=== PATIENT | female | born 1950 | race Caucasian/White ===

== ENCOUNTER 2017-05-02 12:55 | Outpatient (CLI) | payer MEDICARE ==
--- OUTSIDE RECORDS SUMMARY | 2017-05-02 15:02 | XMS | Continuity of Care Document ---
:1950 Author Organization [facility] Care Team Providers Name Role Phone Bello Lord Primary Care Physician Insurance Providers Payer Name Policy Number Subscriber Name Relationship MEDICARE [id number] CARMELO DAVEY SELF/SAME PATIENT MEDICARE/HMO [facility] [id number] CARMELO DAVEY SELF/SAME PATIENT Advance Directives Directive Response Recorded Date/Time Advance Directive? N 04/19/17 12:00pm Living Will? N 04/19/17 12:00pm Health Care Proxy? N 04/19/17 12:00pm Healthcare Power of Service Restorer Emergency? N 04/19/17 12:00pm Is the patient an Organ Donor? N 04/19/17 12:00pm Chief Complaint and Reason for Visit Reason for Visit LOWER LEFT QUAD ABDOMINAL PAIN Problems No problem information available. Medications No medication information available. Social History Problem Response Recorded Date Recreational drugs? N 04/19/17 Alcohol? N 04/19/17 Query Response Start Date Stop Date Smoking Status: Never Smoker Hospital Discharge Instructions No hospital discharge instructions. Plan of Care Discharge Date 04/19/17 Disposition OTHER ACUTE CARE FACILITY Prescriptions See Medications Section Functional Status No functional status results. Allergies, Adverse Reactions, Alerts Allergen Type Severity Reaction Status Last Updated Aspirin Allergy Unknown Active 04/19/17 Immunizations No Known History of Immunizations. Vital Signs Vital Reading Collection Date/Time Result Blood Pressure 04/19/17 3:15pm 154/86 Blood Pressure Source 04/19/17 1:51pm Auto Cuff Temperature 04/19/17 3:15pm 98.8 F Temperature Source 04/19/17 1:51pm Oral Respiratory Rate 04/19/17 1:51pm 18 Pulse Rate 04/19/17 3:15pm 89 Pulse Location 04/19/17 1:51pm Monitor Bedside Pulse Oximetry 04/19/17 3:15pm 96 Height 04/19/17 11:54am 5 ft 5 in Height 04/19/17 11:54am 165.1 cm Weight 04/19/17 11:54am 185 lb Weight 04/19/17 11:54am 83.915 kg Body Mass Index 04/19/17 11:54am 30.8 kg/m2 Results Laboratory Results Test Name Result Units Flags Reference Collection Result Comments Date/Time Date/Time Hemoglobin 12.5 g/dL 12.0-16.0 04/19/17 04/19/17 1:40pm 2:13pm Prothrombin Time 11.2 SECONDS 10.0-12.9 04/19/17 04/19/17 1:40pm 2:18pm INR 1.0 04/19/17 04/19/17 International 1:40pm 2:18pm THE INR IS TO BE USED ONLY FOR MONITORING ORAL ANTICOAGULANT Normalized Ratio THERAPY. INDICATION INR VALUE 1. Prophylaxis of venous thrombosis 2.0-3.0 (high-risk surgery) Treatment of venous thrombosis Treatment of PE Prevention of systemic embolism Tissue heart valves AMI (to prevent systemic embolism) Valvular heart disease Atrial fibrillation Bileaflet mechanical valve in aortic position 2. Mechanical prosthetic heart valves (high risk) 2.5-3.5 Thrombosis and Antiphospholipid syndrome Prevention of recurrent [place] Sixth ACCP Consensus Conference on Antithrombotic Therapy, Chest 2001; 119:Supplement 8-21. Activated 19.5 SECONDS L 25.1-36.5 04/19/17 04/19/17 Partial 1:40pm 2:18pm Thromboplast Time Lactic Acid 2.4 mmol/L H 0.5-2.0 04/19/17 04/19/17 ALERT (CRITICAL) VALUE - CALLED RESULTS AND VERBAL READ Level 1:40pm 2:26pm BACK FROM RAVIN MERCADO RN @ ER 14:24:49 2016 LAB.MMA White Blood 17.1 K/uL H 4.8-10.8 04/19/17 04/19/17 Count 11:58am 12:19pm Red Blood Count 4.48 M/uL 3.70-5.40 04/19/17 04/19/17 11:58am 12:19pm Hemoglobin 13.5 g/dL 12.0-16.0 04/19/17 04/19/17 11:58am 12:19pm Hematocrit 39.7 % 37.0-47.0 04/19/17 04/19/17 11:58am 12:19pm Mean Corpuscular 88.6 fl 80.0-100.0 04/19/17 04/19/17 Volume 11:58am 12:19pm Mean Corpuscular 30.3 pg 27.0-31.0 04/19/17 04/19/17 Hemoglobin 11:58am 12:19pm Mean Corpuscular 34.2 g/dL 32.0-36.0 04/19/17 04/19/17 Hgb Concent Diff 11:58am 12:19pm Red Cell 14.0 % 11.5-14.5 04/19/17 04/19/17 Distribution 11:58am 12:19pm Width Platelet Count 318 K/uL 130-400 04/19/17 04/19/17 11:58am 12:19pm Mean Platelet 8.4 fl 7.4-10.4 04/19/17 04/19/17 Volume 11:58am 12:19pm Granulocytes (%) 85.5 % H 50.0-75.0 04/19/17 04/19/17 11:58am 12:19pm Lymphocytes % 8.2 % L 20.0-40.0 04/19/17 04/19/17 11:58am 12:19pm Monocytes % 5.1 % 0.0-15.0 04/19/17 04/19/17 11:58am 12:19pm Eosinophils % 0.5 % 0.0-10.0 04/19/17 04/19/17 11:58am 12:19pm Basophils % 0.7 % 0.0-2.0 04/19/17 04/19/17 11:58am 12:19pm Granulocytes # 14.6 K/uL H 1.8-6.4 04/19/17 04/19/17 11:58am 12:19pm Lymphocytes # 1.4 K/uL 1.2-3.6 04/19/17 04/19/17 11:58am 12:19pm Monocytes # 0.9 K/uL 0.3-0.9 04/19/17 04/19/17 11:58am 12:19pm Eosinophils # 0.1 K/UL 0.0-0.5 04/19/17 04/19/17 11:58am 12:19pm Basophils # 0.1 K/UL 0.0-0.2 04/19/17 04/19/17 11:58am 12:19pm Manual NO 04/19/17 04/19/17 Differential 11:58am 12:19pm Sodium Level 138 mmol/L 135-144 04/19/17 04/19/17 11:58am 12:42pm Potassium Level 2.4 mmol/L CL 3.5-5.1 04/19/17 04/19/17 ALERT (CRITICAL ) VALUE - CALLED RESULTS AND VERBAL READ 11:58am 12:42pm BACK FROM MAURICIO IVEY, ALEX @ ER 12:35:32 2016 LAB.MMA Chloride Level 114 mmol/L H 101-111 04/19/17 04/19/17 11:58am 12:42pm Carbon Dioxide 20 mmol/L L 22-32 04/19/17 04/19/17 Level 11:58am 12:42pm Anion Gap 6.4 mmol/L L 10-04/19/17 04/19/17 11:58am 12:42pm Glucose Level 172 mg/dL H 70-109 04/19/17 04/19/17 Random glucose > 200 mg/dL in a patient with typical 11:58am 12:42pm symptoms of diabetes (polydipsia, polyuria and unexplained weight loss) satisfies ADA criteria for diabetes mellitus if confirmed by repeat testing on another day. Confirmation is unnecessary when acute metabolic decompensation with hyperglycemia is manifested. Reference: Report of the Expert Committee on the Diagnosis and Classification of Diabetes Mellitus. Diabetes Care, 20:1183, 1997. Blood Urea 10 mg/dL 8-04/19/17 04/19/17 Nitrogen 11:58am 12:42pm Creatinine 0.50 mg/dL 0.44-1.00 04/19/17 04/19/17 11:58am 12:42pm EGFR Note 110.5 63.8-143.2 04/19/17 04/19/17 eGFR (Estimated Glomerular Filtration Rate) 11:58am 12:42pm eGFR calculation value obtained using the [facility] Quadratic (MCQ) equation. The reportable reference range is recommended to be greater than 60 ml/min/1.73m. This is an estimation of the patient's GFR and clinical correlation is recommended. This eGFR calculation does not account for race. This result may differ from other equations available. Calcium Level 6.2 mg/dL L 8.9-10.3 04/19/17 04/19/17 11:58am 12:42pm Albumin 2.7 g/dL L 3.5-5.0 04/19/17 04/19/17 11:58am 12:42pm Total Bilirubin 0.6 mg/dL 0.3-1.2 04/19/17 04/19/17 11:58am 12:42pm Alkaline 51 IU/L 32-91 04/19/17 04/19/17 Phosphatase 11:58am 12:42pm Total Protein 4.2 g/dL L 6.5-8.1 04/19/17 04/19/17 11:58am 12:42pm Alanine 12 IU/L 7-55 04/19/17 04/19/17 Aminotransferase 11:58am 12:42pm (ALT/SGPT) Aspartate Amino 10 IU/L L 15-41 04/19/17 04/19/17 Transf 11:58am 12:42pm (AST/SGOT) Globulin 1.5 g/dL L 2.3-3.5 04/19/17 04/19/17 11:58am 12:42pm Albumin/Globulin 1.8 1.2-2.2 04/19/17 04/19/17 Ratio 11:58am 12:42pm Amylase Level 40 U/L 36-128 04/19/17 04/19/17 11:58am 12:42pm Lipase 17 U/L L 22-51 04/19/17 04/19/17 11:58am 12:42pm Procedures No Known History of Procedures. Encounters Encounter Location Arrival/Admit Date Discharge/Depart Date Attending Provider Departed [facility] 04/19/17 11:52am 04/19/17 3:15pm SHARONDA ARRINGTON [facility]
--- NOTE | 2017-05-02 15:22 | RAD ---
TWO VIEW CHEST: History: Dyspnea. Comparison: 10-25-16 FINDINGS: Mild cardiomegaly with post sternotomy changes. Transvenous AICD leads again noted. The lung khan remain clear. Vascularity is normal. IMPRESSION: Mild cardiomegaly. No acute lung process. No interval change noted. POS: [facility]
== END 2017-05-02 12:56 | disposition home or self-care (01) ==
LOC: RAD 12:55
PROVIDERS: ATTEND Internal Medicine Critical Care Medicine
DX: R06.00 Dyspnea, unspecified (principal); I51.7 Cardiomegaly
CPT/HCPCS: 71020

== ENCOUNTER 2018-05-31 13:00 | Outpatient (CLI) | payer MEDICARE | END 2018-05-31 13:01 | disposition home or self-care (01) | LOC: BICMAMMO 13:00 | PROVIDERS: ATTEND Family Medicine | DX: Z12.31 Encounter for screening mammogram for malignant neoplasm of breast (principal); R92.1 Mammographic calcification found on diagnostic imaging of breast; Z80.3 Family history of malignant neoplasm of breast | CPT/HCPCS: 77063; 77067 ==

== ENCOUNTER 2018-08-16 12:52 | Emergency (ER) | payer MEDICARE ==
--- NOTE | 2018-08-16 13:17 | RAD ---
3 VIEWS LEFT FOOT: Date: 08/16/18 COMPARISON: None. HISTORY: Left foot pain after dropping a plate on it yesterday. FINDINGS: Three views of the left foot show no evidence of acute fracture or dislocation. There is moderate fir st metatarsal head hyperplasia and hallux valgus deformity of the great toe. IMPRESSION: 1. No evidence of acute osseous abnormality. 2. Great toe degenerative change as above. POS: [facility]
[2018-08-16] MEDS ORDERED: traMADol HCl 50 MG TAB ONE (13:59)
[2018-08-16] MEDS ORDERED: Adacel (T-DAP) 0.5 ML SYRINGE ONE (14:00)
== END 2018-08-16 14:29 | disposition home or self-care (01) ==
LOC: ERS 12:52
DX: S90.512A Abrasion, left ankle, initial encounter (principal); E11.9 Type 2 diabetes mellitus without complications; K21.9 Gastro-esophageal reflux disease without esophagitis; Z79.84 Long term (current) use of oral hypoglycemic drugs; E78.5 Hyperlipidemia, unspecified; I10 Essential (primary) hypertension; W20.8XXA Other cause of strike by thrown, projected or falling object, initial encounter
CPT/HCPCS: 90471; 90715

== ENCOUNTER 2018-10-10 11:59 | Emergency (ER) | payer MEDICARE ==
[2018-10-10 13:04] LABS: #Eosinphils 0.2 thou/uL (0.0-0.7); #Lymphocytes 1.3 thou/uL (1.20-3.40); #Monocytes 0.7 thou/uL (0.11-0.59); #Neutrophils 10.5 thou/uL (1.40-6.50); %Basophils 0.1 % (0.0-1.0); %Eosinophils 1.7 % (0.0-10.0); %Lymphocytes 10.5 % (21.0-51.0); %Monocytes 5.2 % (0.0-10.0); %Neutrophils 82.4 % (42.0-75.0); Hemoglobin 13.5 g/dL (12.0-16.0); Mean Corpuscular HGB CONC 33.4 g/dL (32.0-36.0); Mean Corpuscular Hemoglobin 30.7 pg (27.0-31.0); Mean Corpuscular Volume 91.9 fL (78.0-98.0); Mean Platelet Volume 7.3 fL (7.4-10.4); Platelet Count 329 thou/uL (130-400); RBC Distribution Width 12.4 % (11.5-14.5); Red Blood Cell (RBC) Count 4.38 mill/uL (4.20-5.40); White Blood Cell (WBC) Count 12.7 thou/uL (4.8-10.8)
[2018-10-10 13:32] LABS: Bilirubin Negative (Negative); Blood, Urine Trace (Negative); Clarity CLEAR (Clear); Glucose, Urine (Dipstick) Negative (Negative); Leukocyte Negative (Negative); Nitrite Negative (Negative); Protein, Urine (Dipstick) Negative (Neg-Trace); Specific Gravity, Urine 1.019 (1.002-1.036); Urobilinogen 0.2 mg/dL (0.2-1.0); pH, Urine 5.5 (5.0-9.0)
[2018-10-10 13:33] LABS: ALT (SGPT) 13 U/L (8-55); AST (SGOT) 11 U/L (5-34); Albumin 4.3 g/dL (3.4-4.8); Alkaline Phosphatase 77 U/L (40-150); Anion Gap 13 mmol/L (10-20); BUN (Urea Nitrogen) 12 mg/dL (9.8-20.1); Bilirubin, Total 0.6 mg/dL (0.2-1.2); Calc. Creatinine Clearance 0 mL/min (70-130); Calcium 9.8 mg/dL (7.8-10.44); Carbon Dioxide 29 mmol/L (23-31); Chloride 102 mmol/L (98-107); Estimated GFR-MDRD 68; Globulin 2.1 g/dL (2.4-3.5); Glucose 121 mg/dL (80-115); Potassium 4.6 mmol/L (3.5-5.1); Protein, Total 6.4 g/dL (6.0-8.3); Sodium 139 mmol/L (136-145)
[2018-10-10 13:34] LABS: Bacteria/HPF None Seen HPF (None Seen); Hyaline Casts/LPF 0-3 HYALINE CAST LPF (0-3 Hyaline); Pathc Cast-AUWi Flag 0.54 (0-2.49); Squamous Epithelial 0-3 HPF (0-3); WBC/HPF 0-3 HPF (0-3)
--- NOTE | 2018-10-10 15:40 | CT ---
CT Stone Protocol History: [Left flank pain.] Comparison: CT abdomen and pelvis January 2018 Findings: Lung bases are clear. No pericardial effusion. Dense mitral annular calcifications. Hepatic cyst is similar. Asymmetric left perinephric stranding is similar. The stranding has mildly d ecreased attenuation measuring 25-30 Hounsfield units suggesting sequelae of chronic left perinephric hematoma.. There is moderate asymmetric increase in the left perinephric fat. There is an 18 mm mass inferior pole left kidney which may reflect a complex cyst that has not grown from 2018 although dedicated renal protocol CT or MRI and 6 months is recommended. No dilated loops of large or small bowel. Moderate degenerative disease pubic symphysis and lower lum bar spine. Impression: 1. 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 There is lik melisa injury to the left perirenal fascia with chronic transudation of fluid across the capsule with subsequent increased left perinephric fat. No new hematoma. 2. No nephroureterolithiasis or hydronephrosis. 3. 18 mm mass inferior pole left kidney for which a nonemergent follow-up CT or MRI renal protocol in 6 months is recommended. This has not significantly grown from 2018.
[2018-10-10] MEDS ORDERED: Dexamethasone 4 mg/ml Vial ONE (15:52)
== END 2018-10-10 16:05 | disposition home or self-care (01) ==
LOC: ERS 11:59
DX: R10.9 Unspecified abdominal pain (principal); J45.909 Unspecified asthma, uncomplicated; E11.9 Type 2 diabetes mellitus without complications; E78.5 Hyperlipidemia, unspecified; I10 Essential (primary) hypertension
CPT/HCPCS: 36415; 74176; 80053; 81003; 81015; 85025; J1100

== ENCOUNTER 2018-10-12 10:12 | Emergency (ER) | payer MEDICARE ==
[2018-10-12] MEDS ORDERED: Lidocaine 1% w/Epinephrine 1:100K 20 ML VIAL ONE (11:07)
[2018-10-12] MEDS ORDERED: Bacitracin Zinc 1 Packet ONE (11:43)
== END 2018-10-12 11:49 | disposition home or self-care (01) ==
LOC: ERS 10:12
DX: S81.812A Laceration without foreign body, left lower leg, initial encounter (principal); J45.909 Unspecified asthma, uncomplicated; E11.9 Type 2 diabetes mellitus without complications; K21.9 Gastro-esophageal reflux disease without esophagitis; E78.5 Hyperlipidemia, unspecified; I10 Essential (primary) hypertension; Z79.4 Long term (current) use of insulin; W26.8XXA Contact with other sharp object(s), not elsewhere classified, initial encounter
CPT/HCPCS: 12002; J2001

== ENCOUNTER 2018-10-28 10:24 | Emergency (ER) | payer MEDICARE | END 2018-10-28 10:57 | disposition home or self-care (01) | LOC: SCSER 10:24 | DX: S81.812D Laceration without foreign body, left lower leg, subsequent encounter (principal); E11.9 Type 2 diabetes mellitus without complications; K21.9 Gastro-esophageal reflux disease without esophagitis; E78.5 Hyperlipidemia, unspecified; I10 Essential (primary) hypertension; Z79.84 Long term (current) use of oral hypoglycemic drugs ==

== ENCOUNTER 2019-01-04 17:42 | Observation (INO) | payer MEDICARE ==
[2019-01-04 19:47] LABS: #Eosinphils 0.4 thou/uL (0.0-0.7); #Lymphocytes 2.1 thou/uL (1.20-3.40); #Monocytes 1.1 thou/uL (0.11-0.59); #Neutrophils 8.3 thou/uL (1.40-6.50); %Basophils 0.4 % (0.0-1.0); %Eosinophils 3.7 % (0.0-10.0); %Lymphocytes 17.7 % (21.0-51.0); %Monocytes 9.1 % (0.0-10.0); %Neutrophils 69.1 % (42.0-75.0); Hemoglobin 13.7 g/dL (12.0-16.0); Mean Corpuscular HGB CONC 34.4 g/dL (32.0-36.0); Mean Corpuscular Hemoglobin 31.4 pg (27.0-31.0); Mean Corpuscular Volume 91.3 fL (78.0-98.0); Mean Platelet Volume 7.1 fL (7.4-10.4); Platelet Count 422 thou/uL (130-400); RBC Distribution Width 11.8 % (11.5-14.5); Red Blood Cell (RBC) Count 4.36 mill/uL (4.20-5.40); White Blood Cell (WBC) Count 12.1 thou/uL (4.8-10.8)
[2019-01-04 20:07] LABS: ALT (SGPT) 11 U/L (8-55); AST (SGOT) 13 U/L (5-34); Albumin 4.4 g/dL (3.4-4.8); Alkaline Phosphatase 82 U/L (40-150); Anion Gap 16 mmol/L (10-20); BUN (Urea Nitrogen) 9 mg/dL (9.8-20.1); Bilirubin, Total 0.5 mg/dL (0.2-1.2); CK (CPK) 51 U/L (29-168); Calc. Creatinine Clearance 0 mL/min (70-130); Calcium 9.5 mg/dL (7.8-10.44); Carbon Dioxide 27 mmol/L (23-31); Chloride 95 mmol/L (98-107); Estimated GFR-MDRD 72; Globulin 1.9 g/dL (2.4-3.5); Glucose 94 mg/dL (80-115); Lipase 23 U/L (8-78); Potassium 3.8 mmol/L (3.5-5.1); Protein, Total 6.3 g/dL (6.0-8.3); Sodium 134 mmol/L (136-145)
--- NOTE | 2019-01-04 20:15 | RAD ---
Exam: Chest one view HISTORY:Chest pain Comparison: 06/26/2013, 05/02/2017 FINDINGS: Cardiac silhouette:Cardiomegaly. There are sternotomy wires. Stable left-sided defibrillator. Elongat ion of the aorta. Atherosclerosis of the aortic knob Pulmonary vessels: Normal Costophrenic angles: Clear LUNGS: No masses or consolidation. Chronic changes are suspected. Pneumothorax: None Osseous abnormalities: Old right rib fracture. IMPRESSION: No acute cardiopulmonary process.
[2019-01-04] MEDS ORDERED: diphenhydrAMINE 25 MG CAP ONE (21:53)
[2019-01-04] MEDS ORDERED: Lorazepam 2 MG/ML VIAL ONE (23:05)
[2019-01-05 00:04] LABS: Troponin I 0.017 ng/mL (< 0.028)
[2019-01-05] MEDS ORDERED: diphenhydrAMINE 25 MG CAP PO PRN (01:24)
[2019-01-05] MEDS ORDERED: Ondansetron PF 4 MG/2 ML Vial IVP PRN (01:25)
[2019-01-05] MEDS ORDERED: Ondansetron ODT 4 MG TAB SL PRN (01:25)
[2019-01-05] MEDS ORDERED: Lorazepam 2 MG/ML VIAL SLOW IVP PRN (01:25)
[2019-01-05] MEDS ORDERED: Acetaminophen 325 MG TAB PO PRN (01:25)
[2019-01-05] MEDS ORDERED: HYDROcodone/Acetaminophen 7.5/325 mg Tablet PO SCH (02:00)
[2019-01-05] MEDS: HYDROcodone/Acetaminophen 7.5/325 mg Tablet PO PRN ×3 (02:15→21:24)
[2019-01-05 02:46] LABS: Troponin I Less than 0.010 ng/mL (< 0.028)
[2019-01-05 03:07] VITALS: BMI 28.4
[2019-01-05] MEDS ORDERED: Furosemide 20 MG TAB PO PRN (07:36)
[2019-01-05] MEDS ORDERED: Docusate 100 MG CAP PO PRN (07:36)
[2019-01-05] MEDS ORDERED: diphenhydrAMINE 25 MG in Sodium Chloride 0.9% 50 ML IVPB SCH (08:30)
--- NOTE | 2019-01-05 08:30 | CT ---
PRELIMINARY REPORT/[facility]/EMERGENCY AFTER HOURS PROCEDURE: EXAM: CT Angiography Chest With Contrast EXAM DATE/TIME: 01/05/2019 12:38 AM CLINICAL HISTORY: 68 years old, female; Dyspnea; Patient HX: F68 w/ pmh of chf, dm, gerd, hyperlipidemia, HTN, cad, car diomyopathy, treated w/ pacemaker/aicd, comes into the ED w/ C/O cp, SOB, pruritis, rash. Reports all began earlier today. Has taken a benadryl at home which helped some with the itching. Cp off/on, now described as pressure. TECHNIQUE: Imaging protocol: Axial computed tomographic angiography images of the chest with intravenous contrast using CT angiography protocol. Coronal and sagittal reformatted images were created and revi ewed. 3D rendering: MIP reconstructed images were created and reviewed. COMPARISON: No relevant prior studies available. FINDINGS: Tubes, catheters and devices: A pacemaker device is present, and its leads are in appropriate position. Pulmonary arteries: There is no evidence of peripheral filling defects within the pulmonary arterial circulation to suggest pulmonary embolism. Aorta: The aorta demonstrates mild atherosclerotic calcification. There is no evidence of aortic dissection, leak, rupture, or other complications. Lungs: There is atelectasis or scarring within the right middle lobe. Pleural space: Unremarkable. No pneumothorax. No pleural effusion. Heart: Unremarkable. No cardiomegaly. No pericardial effusion. Lymph nodes: Unremarkable. No enlarged lymph nodes. Bones/joints: There are sternal wires consistent with previous sternotomy incision. There is an age i ndeterminate compression fracture at T8. Soft tissues: Unremarkable. IMPRESSION: 1. There is no CT evidence of acute pulmonary embolism. 2. There is an age-indeterminate compression fracture at T8. 3. Chronic changes without evidence for acute, intracranial pathology. ASSESSMENT: ASPECTS ([place] Stroke Program Early CT Score) is 10. Thank you for allowing us to participate in the care of your patient. Dictated and Authenticated by: Ho Caban MD 01/05/2019 3:39 AM Central Time ([place] & [place]) FINAL REPORT: CTA ANGIO CHEST WITH AND WITHOUT CONTRAST: HISTORY: Congestive heart failure, shortness of breath. COMPARISON: Radiograph prior day. FINDINGS: CT angiogram chest performed after the intravenous ministration of contrast. 3-D rendering provided. IMPRESSION: Findings and impression are concordant with the preliminary report. Transcribed Date/Time: 01/05/2019 9:12 AM
[2019-01-05] MEDS ORDERED: diphenhydrAMINE 50 MG/ML VIAL IVP SCH ×2 (08:33→11:15)
[2019-01-05] MEDS ORDERED: Bacteriostatic Water 30 ML VIAL FS PRN (08:36)
[2019-01-05] MEDS: Spironolactone 25 MG TAB PO SCH ×2 (08:40→20:33)
[2019-01-05] MEDS: predniSONE 20 MG TAB PO SCH (08:40)
[2019-01-05] MEDS: Clopidogrel Bisulfate 75 MG TAB PO SCH (08:40)
[2019-01-05] MEDS: Atorvastatin Calcium 40 MG TAB PO SCH (08:40)
[2019-01-05] MEDS ORDERED: methylPREDNISolone Sod Succ 40 MG VIAL IVP SCH ×2 (08:45)
[2019-01-05] MEDS: Famotidine/PF 20 mg/2ml Vial SLOW IVP SCH ×2 (08:49→20:31)
[2019-01-05] MEDS ORDERED: HumaLOG 300 UNITS/3 ML VIAL SC PRN (09:03)
[2019-01-05] MEDS ORDERED: Dextrose 5% in Water 1,000 ML IV PRN (09:03)
[2019-01-05] MEDS ORDERED: Dextrose 50% Abboject 50 ML SYRINGE SLOW IVP PRN (09:03)
--- NOTE | 2019-01-05 09:49 | HP ---
CHIEF COMPLAINT: Chest pressure, fatigue, rash. HISTORY OF PRESENT ILLNESS: Ms. Humphreys is a very pleasant 68-year-old female with past medical history for coronary artery disease status post two vessel CABG, obstructive hypertrophic cardiomyopathy status post myomectomy and defibrillator placement, paroxysmal atrial fibrillation, along with steroid-dependent asthma, who presented to the hospital with complaints of chest pressure. The patient states that for the past several days, she has been experiencing a rash, which has seemed to break out over her entire body and is very itchy. This has been improved with oral Benadryl. Last night, the patient experienced an episode of chest pressure that woke her up. This seemed to be associated with nausea soon after the chest pressure resolved. Later in the day, she did have another episode of chest discomfort, which she described as a pressure radiated toward the back. The patient states that for the last several weeks, she has also felt increasing fatigue and exercise intolerance. Given her symptoms, the patient presented to the ED for further workup and treatment. Workup has included an EKG, which shows a ventricularly-paced rhythm. Her serial troponin has been negative x3. Her urticaria and rash are improving with another dose of oral Benadryl. She has been admitted to the Hospitalist Service for further evaluation. REVIEW OF SYSTEMS: A 12-point review of systems is performed. The patient states that she has had some bilateral lower extremity edema, which has been worse in the past few days. She takes her spironolactone and Lasix as needed for this. She denies any vomiting or diarrhea, but does report nausea, which seems to be related to her chest discomfort as outlined above. She denies any fevers or chills. Otherwise, her review of systems is negative. PAST MEDICAL HISTORY: 1. Steroid-dependent asthma. 2. Hypertension. 3. Type 2 diabetes mellitus. 4. Hyperlipidemia. 5. Complicated cardiac history to include hypertrophic cardiomyopathy, which obstructed the outflow tract, status post myomectomy and defibrillator placement, CAD status post two-vessel CABG, and paroxysmal atrial fibrillation. 6. History of renal hemorrhage in 2017. 7. Gastroesophageal reflux disease. PAST SURGICAL HISTORY: Two-vessel coronary artery bypass grafting as mentioned, cholecystectomy, which was open in 1972, tubal ligation, defibrillator implant. SOCIAL HISTORY: No alcohol, illicit drug use, or smoking. FAMILY HISTORY: Noncontributory. ALLERGIES: ASPIRIN, WHICH CAUSES ANAPHYLAXIS; NSAIDS, ANAPHYLAXIS. HOME MEDICATIONS: 1. Atorvastatin 40 mg daily. 2. Plavix 75 mg p.o. daily. 3. Diltiazem 120 mg p.o. daily. 4. Lasix 40 mg p.o. daily p.r.n. 5. Hydrocodone/acetaminophen 7.5/325 one tab p.o. q.4 hours p.r.n. 6. DuoNeb inhalers as needed. 7. Xopenex 1 puff inhaled q.4 hours p.r.n. 8. Metformin 1000 mg one tablet p.o. daily. 9. Metoprolol succinate 12.5 mg one p.o. daily. 10. Potassium chloride 10 mEq one p.o. daily. 11. Prednisone 10 mg p.o. daily. 12. Spironolactone 25 mg p.o. b.i.d. 13. Rescue inhaler one puff p.r.n. PHYSICAL EXAMINATION: VITAL SIGNS: Blood pressure 145/71, pulse is 92, O2 saturation is 98% on room air, respirations are 18. GENERAL: The patient is a moderately obese, female, resting in bed, in no acute distress. HEENT: Head is atraumatic and normocephalic. Mucous membranes are moist. NECK: Supple. Trachea is midline. No carotid bruits. CV: S1, S2, irregular rhythm. LUNGS: Regular respiratory rate and pattern, no wheezes or rhonchi, no crackles. ABDOMEN: Positive bowel sounds. Soft, nontender. EXTREMITIES: Trace edema bilaterally, the patient does have a small nonhealing ulcer on her left lateral ankle. SKIN: Warm and dry, she does have evidence of mild urticaria on her back and arms. NEUROLOGIC: Cranial nerves 2 through 12 were grossly intact. The patient is nonfocal. LABORATORY DATA: White blood cell count 12.1, hemoglobin 13.7, hematocrit 39.8, platelets are 422. Sodium 134, potassium 3.8, chloride 27, anion gap 16, creatinine 0.79. AST, ALT, alkaline phosphatase all within normal limits. Creatine kinase is 51. Troponin is negative x3. BNP is 123. Lipase is 23. TSH 1.0985. ASSESSMENT: 1. Chest pressure and worsening fatigue concerning for anginal equivalent in a patient with known coronary artery disease. 2. Pruritus/urticaria, unknown trigger, improving. 3. History of hypertrophic cardiomyopathy with outflow tract obstruction, status post myomectomy and defibrillator placement. 4. Coronary artery disease, status post two-vessel CABG in 2006. 5. Paroxysmal atrial fibrillation, CHADS-VASc equals 6. 6. Steroid-dependent asthma. 7. Anaphylaxis, allergic reaction to aspirin. 8. Type 2 diabetes mellitus. PLAN: Given the patient's very complicated past cardiac history, we will consult Cardiology and defer to them for further risks stratification and if they recommend in-house stress test, we will continue her home medications. We will obtain echocardiogram. Continue Plavix and beta santos. I will consult Wound Care for further management of her nonhealing ulcer. The patient is high risk given her multiple comorbidities. We will also obtain interrogation of her defibrillator to assess for AF burden. It does not appear that she is on anticoagulation at this time. Further recommendations based on hospital course. Job ID: [id number]
[2019-01-05] MEDS ORDERED: diphenhydrAMINE 50 MG/ML VIAL ONE (11:07)
[2019-01-05] MEDS ORDERED: ISOVUE-370 76%-LOCM 1 ML ONE (12:36)
[2019-01-05] MEDS: HumaLOG 300 UNITS/3 ML VIAL SC PRN (18:09)
[2019-01-05] MEDS: diphenhydrAMINE 50 MG/ML VIAL IVP PRN (20:37)
[2019-01-06] MEDS: HYDROcodone/Acetaminophen 7.5/325 mg Tablet PO PRN ×3 (02:19→18:34)
[2019-01-06] MEDS: diphenhydrAMINE 50 MG/ML VIAL IVP PRN ×2 (02:20→21:11)
[2019-01-06 09:02] LABS: #Eosinphils 0.1 thou/uL (0.0-0.7); #Lymphocytes 1.7 thou/uL (1.20-3.40); #Monocytes 1.4 thou/uL (0.11-0.59); #Neutrophils 9.9 thou/uL (1.40-6.50); %Basophils 0.1 % (0.0-1.0); %Eosinophils 0.8 % (0.0-10.0); %Monocytes 10.6 % (0.0-10.0); %Neutrophils 75.5 % (42.0-75.0); Hemoglobin 12.4 g/dL (12.0-16.0); Mean Corpuscular HGB CONC 34.6 g/dL (32.0-36.0); Mean Corpuscular Hemoglobin 31.5 pg (27.0-31.0); Mean Corpuscular Volume 91.1 fL (78.0-98.0); Platelet Count 364 thou/uL (130-400); RBC Distribution Width 11.8 % (11.5-14.5); Red Blood Cell (RBC) Count 3.92 mill/uL (4.20-5.40); White Blood Cell (WBC) Count 13.2 thou/uL (4.8-10.8)
[2019-01-06] MEDS ORDERED: predniSONE 20 MG TAB PO SCH (09:15)
[2019-01-06 09:21] LABS: Anion Gap 15 mmol/L (10-20); BUN (Urea Nitrogen) 11 mg/dL (9.8-20.1); Calc. Creatinine Clearance 78 mL/min (70-130); Calcium 9.3 mg/dL (7.8-10.44); Carbon Dioxide 26 mmol/L (23-31); Chloride 99 mmol/L (98-107); Estimated GFR-MDRD 70; Glucose 103 mg/dL (80-115); Magnesium 1.5 mg/dL (1.6-2.6); Potassium 3.8 mmol/L (3.5-5.1); Sodium 136 mmol/L (136-145)
[2019-01-06 09:24] LABS: Bilirubin Negative (Negative); Blood, Urine 1+ (Negative); Clarity Clear (Clear); Glucose, Urine (Dipstick) Normal (Negative); Leukocyte 75 Leu/uL (Negative); Nitrite Negative (Negative); Protein, Urine (Dipstick) Negative (Neg-Trace); RBC/HPF 0-3 HPF (0-3); Squamous Epithelial 0-3 HPF (0-3); Urobilinogen Normal mg/dL (Less than 2)
[2019-01-06 09:27] LABS: Urine Culture Reflex Yes Yes
[2019-01-06 09:28] LABS: Bacteria/HPF None Seen HPF (None Seen)
--- NOTE | 2019-01-06 09:45 | PRG ---
DATE OF SERVICE: 01/06/2019 SUBJECTIVE: Ms. Humphreys is doing okay this morning. She did have an episode of chest pressure leading to this hospitalization. She has also had severe rash suggestive of allergy to one of her medicines. OBJECTIVE: VITAL SIGNS: Her blood pressure is 111/58, pulse is 76 and regular. LUNGS: Clear. No wheezing currently. CARDIAC: Normal S1, normal S2. ABDOMEN: Soft, nontender. EXTREMITIES: There is no significant edema currently. ASSESSMENT: 1. History of hypertrophic obstructive cardiomyopathy with previous surgery for the hypertrophic cardiomyopathy. 2. Previous bypass surgery. 3. Aspirin allergy. 4. Rash, probably one of her medications. 5. Defibrillator indicates that there is some, looks like ventricular tachycardia and some supraventricular tachycardia. 6. Chest pressure, uncertain etiology. PLAN: 1. Stress test to be done. 2. Echo to be reviewed. 3. Consideration for trying to simplify her medicines and seeing if there is any medicine, so we can do without. Certainly, Cardizem could cause rash, and also clopidogrel can. The first step will be to do stress testing and echocardiography to further interrogate the defibrillator and re-evaluate difficult complicated situation. Job ID: [id number]
--- NOTE | 2019-01-06 10:20 | CON ---
DATE OF CONSULTATION: HISTORY OF PRESENT ILLNESS: The patient is a pleasant 68-year-old woman with a history of myomectomy, who presents with midsternal chest discomfort. The patient has a history of hypertrophic cardiomyopathy. The patient previously has undergone a myomectomy. She also had coronary artery bypass graft surgery x2. The patient has had placement of automatic implantable cardiac defibrillator. The patient has a history of paroxysmal atrial fibrillation. The patient was in her usual state of health when she developed hive-like reaction. She broke out in a severe rash. It is unclear rash. The patient subsequently developed midsternal chest discomfort that lasted approximately an hour. The patient then came to the emergency room for further evaluation. In the emergency room, she had a second episode that lasted approximately 20 minutes. This was a midsternal discomfort. It was associated with dyspnea. She denied having any diaphoresis. The patient states she has had these episodes at times whenever she feels that her weight is elevated whenever she has evident increasing heart failure. PAST MEDICAL HISTORY: Significant for, 1. Hypertrophic cardiomyopathy. 2. Atrial fibrillation. 3. Hypertension. 4. Diabetes mellitus. 5. Asthma. PAST SURGICAL HISTORY: Coronary artery bypass surgery, cholecystectomy, tubal ligation. SOCIAL HISTORY: Nonsmoker. ALLERGIES: SHE IS ALLERGIC TO ASPIRIN AND NSAIDS. MEDICATIONS: See nursing list. REVIEW OF SYSTEMS: Ten-point systems notable for a foot wound and decreased mobility. PHYSICAL EXAMINATION: GENERAL: Obese woman, in no acute distress. VITAL SIGNS: Blood pressure 150/89. NECK: Showed no jugular venous distention. LUNGS: Clear to auscultation. HEART: Regular rate and rhythm. Normal S1 and S2. ABDOMEN: Distended. EXTREMITIES: Showed trace edema with a wound over the left lower extremity. VASCULAR: Radial pulses 2+. LABORATORY DATA: Sodium 134, potassium 3.8, chloride 95, bicarbonate 27, BUN 9, creatinine 0.79. Her glucose is 94. Troponin is less than 0.01. White blood cell count 12.1, hemoglobin 13.7, hematocrit 39.3, and platelets are 422. IMAGING STUDIES: Her EKG revealed electronic ventricular pacemaker. Telemetry monitoring revealed a wide-complex tachycardia suggestive of SVT. Her chest CT revealed her to have no evidence of a pulmonary embolus. IMPRESSION: 1. Chest pain. 2. Supraventricular tachycardia. 3. History of myomectomy. 4. History of atrial fibrillation. 5. History of automatic implantable cardioverter-defibrillator placement. 6. History of renal injury. 7. Asthma. PLAN: This patient presents with SVT. She also has chest pain which has some features suggestive of angina. We will have the patient's pacemaker interrogated. With her aspirin allergy, she would not be an appropriate patient for cardiac intervention. Would recommend that she undergo probable stress testing during this hospitalization. Further recommendation will follow. Job ID: [id number]
[2019-01-06] MEDS ORDERED: Regadenoson 0.4 MG/5 ML SYRINGE ONE (11:56)
[2019-01-06] MEDS: Spironolactone 25 MG TAB PO SCH ×2 (12:49→21:14)
[2019-01-06] MEDS: Clopidogrel Bisulfate 75 MG TAB PO SCH (12:49)
[2019-01-06] MEDS: Atorvastatin Calcium 40 MG TAB PO SCH (12:50)
[2019-01-06] MEDS: predniSONE 20 MG TAB PO SCH (12:50)
[2019-01-06] MEDS: Famotidine/PF 20 mg/2ml Vial SLOW IVP SCH ×2 (12:51→21:13)
[2019-01-06] MEDS: HumaLOG 300 UNITS/3 ML VIAL SC PRN ×2 (12:56→18:28)
--- NOTE | 2019-01-06 12:56 | NM ---
EXAM: Nuclear medicine cardiac SPECT with EF and wall motion: HISTORY: Chest pain, status post CABG, history of coronary artery disease, status post ICD. Protocol: [facility]. The patient is injected with32.2 millicuries of technetium 99m sestamibi intravenously for stress marcia ges. The patient is injected with10.2 millicuries of technetium 99 sestamibi intravenously for resting marcia ges. Multiple SPECT images are performed in the short axis, vertical long axis, and horizontal long axis. FINDINGS: No scan evidence for infarct or ischemia. TID:1.07 LHR:0.39 EDV:86 mL EF:70% Wall motion:Within normal limits. IMPRESSION: Unremarkable stress rest cardiac SPECT with EF and wall motion.
--- NOTE | 2019-01-06 14:57 | PDOC.PN ---
- Subjective Encounter Start Date: 01/06/19 Encounter Start Time: 14:55 Subjective: Patient states she feels well and is without any complaints. Reports long- -: standing issues with episodes of tachycardia. Usually exacerbated by -: exertion and sometimes when over-excited while talking. Per she drinks caffeine excessively with minimal water intake. She denies any chest pain or sob. No dizziness or headaches. Reports mild nausea yesterday with an episode of dry heaving which has resolved. She moved her bowels this morning without difficulty. No bright red blood in her stools or melena. No urinary symptoms. - Objective Vital Signs & Weight: Vital Signs (12 hours) Temp Pulse Resp BP BP BP Pulse Ox 01/06/19 12:46 95 113/67 98 01/06/19 07:32 98.0 F 76 16 111/58 L 96 01/06/19 05:40 81 18 121/66 96 Weight Weight 165 lb 9.6 oz I&O: 01/05/19 01/06/19 01/07/19 06:59 06:59 06:59 Intake Total 900 Output Total 600 Balance 300 Result Diagrams: 01/06/19 08:49 01/06/19 08:49 Additional Labs: Accuchecks 01/06/19 01/06/19 01/05/19 12:48 06:33 20:38 POC Glucose 222 H 119 H 350 H 01/05/19 17:57 POC Glucose 416 H Phys Exam - Physical Examination Constitutional: NAD HEENT: PERRLA, moist MMs, sclera anicteric Neck: supple, full ROM Respiratory: clear to auscultation bilateral Cardiovascular: RRR Gastrointestinal: soft, non-tender, no distention, positive bowel sounds Musculoskeletal: no edema, pulses present Neurological: normal sensation, moves all 4 limbs Lymphatic: no nodes Psychiatric: normal affect, A&O x 3 Skin: no rash Dx/Plan (1) Chest pain Code(s): R07.9 - CHEST PAIN, UNSPECIFIED Status: Resolved Plan: Status post stress test: EF 70%, unremarkable. Status post Echo: EF 65-70%, mild TR, mild MR. Mildly elevated pulmonary artery pressure. Small pericardial effusion without tamponade. Left atrium moderately dilated. Diastolic dysfunction. Normal sized LV. (2) CAD (coronary artery disease) Code(s): I25.10 - ATHSCL HEART DISEASE OF [place] CORONARY ARTERY W/O ANG PCTRS Status: Acute (3) AICD (automatic cardioverter/defibrillator) present Code(s): Z95.810 - PRESENCE OF AUTOMATIC (IMPLANTABLE) CARDIAC DEFIBRILLATOR Status: Acute Plan: For further interrogation given episodes of WCT x 17 beats this am. (4) Diabetes Code(s): E11.9 - TYPE 2 DIABETES MELLITUS WITHOUT COMPLICATIONS Status: Chronic Plan: Continue to monitor glucose. ISS. Metformin held due to stress test. (5) Hypertension Code(s): I10 - ESSENTIAL (PRIMARY) HYPERTENSION Status: Chronic Plan: Continue meds and monitor BP. - Plan cont current plan of care -: UA: leukocyte esterase, WBC 7-10, and bacteria. Awaiting UCx -: Further recommendations as per Dr. Abdi. -: Patient asymptomatic. ADDENDUM: Patient cleared by Dr. Jacinto, per Dr. Abdi, monitor overnight.
[2019-01-06] MEDS ORDERED: Lorazepam 0.5 MG TAB PO SCH (23:00)
--- NOTE | 2019-01-07 00:13 | CON ---
DATE OF CONSULTATION: 01/06/2019 PROBLEMS: I am seeing Ms. Humphreys at our [facility] telemetry floor as an electrophysiology consult and her problems are: 1. Paroxysmal atrial tachycardia run short lasting 15 seconds. 2. Atypical chest pains, negative stress test this admission. 3. History of hypertrophic cardiomyopathy, status post myectomy in 2006. 4. Status post Bi-V ICD implantation in June 2013, currently with a Medtronic Viva XT [employer]-D device. 5. Diabetes. 6. History of steroid dependent asthma. 7. History of diastolic heart failure with current LVEF 65-70%, diastolic dysfunction, mild MR, mild TR, mild pulmonary hypertension on echo 01/05/2019. ALLERGIES: ASPIRIN AND NONSTEROIDALS. MEDICATIONS: At home included; levalbuterol, spironolactone, Ventolin, Clopidogrel, furosemide, potassium, ipratropium with albuterol, docusate, metformin, atorvastatin, metoprolol succinate, diltiazem, prednisone, and hydrocodone. SUBJECTIVE: Ms. Humphreys is here due to chest discomfort, which lasted about an hour. It was associated with nausea after chest pain resolved. This started the day prior to admission, had another recurrent episode which again described as pressure radiating to the back. At the time of my interview, the patient is pain free. She did undergo a stress test, which was found to be negative today. Otherwise, she has symptoms of increasing fatigue and tiredness. She does not feel major palpitations. No stroke-like symptoms. No neurological deficits. No fever, chills, or cough. Rest of 12-point system otherwise unremarkable. PAST MEDICAL HISTORY: As above. She also has history of coronary artery disease post 2-vessel bypass surgery in the past as well as myectomy for obstructive outflow tract disease. She has a Bi-V ICD, followed at our office. She has remote history of renal hemorrhage and GERD as well. PAST SURGICAL HISTORY: Also includes tubal ligation and cholecystectomy. SOCIAL HISTORY: The patient denies smoking, EtOH or drug use. FAMILY HISTORY: Not contributory. OBJECTIVE DATA: VITAL SIGNS: Blood pressure is 115/68, heart rate is 77, respiratory rate is 16 and temperature 99.1 degrees Fahrenheit. GENERAL: She is alert and oriented woman, in no apparent distress. NECK: Supple. Jugular veins not distended. CHEST: Coarse without crackles. HEART: Sounds are regular rate and rhythm. No murmur or gallop. ABDOMEN: Benign. Bowel sounds positive. EXTREMITIES: Lower extremities without edema, clubbing or cyanosis. Pulses are adequate. NEUROLOGIC: Nonfocal. MUSCULOSKELETAL: No joint deformity. SKIN: Without rash. Left subclavian pacemaker insertion site is well healed. DATABASE: EKG is reviewed revealing sinus rhythm, ventricular paced complexes. Interrogation of the ICD reveals a Medtronic Viva Quad Bi-V ICD. Battery longevity about a year. Lead parameters are adequate , RV impedance 456, ohms respectively. Sensing is adequate at 1.6 and 30.9 mV. Pacing, the patient is predominantly ventricular paced at 99% of the time. Very short episodes of atrial tachyarrhythmia episodes causing non-tracking beyond the upper tracking rate noted on January 04 and January 05. This is since the last programming in August 2018. Nonsustained VT episodes are also documented. This could represent atrial tachyarrhythmias as well. LABORATORY DATA: White cell count is 13.2, hemoglobin 12.4, platelet count is 364. Sodium 136, potassium 3.8, BUN is 11, creatinine 0.8. D-dimer is 0.97. The chest x-ray shows no acute cardiopulmonary disease. ASSESSMENT AND PLAN: 1. Ms. Humphreys is a pleasant 68-year-old woman with prior history of coronary artery disease and hypertrophic cardiomyopathy. She also has a biventricular implantable cardioverter defibrillator in place, which seems to be functioning adequately. She has remote history of ventricular tachycardia, but now the episodes documented by the telemetry and devices to be correspond to an atrial tachyarrhythmia run. They are short nonsustained and so far no atrial overdrive pacing attempts were necessary, hence they self-terminated. 2. I have discussed the case with Dr. Abdi. At this point, it is reasonable to continue increase the AV narendra blocking agents and with minimal symptoms, observation is reasonable. If the episodes become longer, we could reprogram the implantable cardioverter defibrillator to detect and treat them earlier and also antiarrhythmic agents could be considered at this point, not pending ablation therapy and relatively short nonsustained episodes. 3. Biventricular implantable cardioverter defibrillator, otherwise adequate function. Continue monitoring, hence about a year longevity less than a battery life. 4. Hypertrophic cardiomyopathy, under good control without current obstruction, post myectomy. 5. Coronary artery disease with new onset chest pains, but negative stress test as per Dr. Abdi. Thank you again for letting me participate in the care of this patient. We will follow up with you and I am happy to see the patient as an outpatient as well. Job ID: [id number]
[2019-01-07 08:01] VITALS: BP 125/69; TEMP 98.4
[2019-01-07] MEDS: predniSONE 20 MG TAB PO SCH (08:50)
[2019-01-07] MEDS: Spironolactone 25 MG TAB PO SCH (08:51)
[2019-01-07] MEDS: Famotidine/PF 20 mg/2ml Vial SLOW IVP SCH (08:51)
[2019-01-07] MEDS: diphenhydrAMINE 50 MG/ML VIAL IVP PRN (09:00)
[2019-01-07] MEDS: Atorvastatin Calcium 40 MG TAB PO SCH (09:29)
--- NOTE | 2019-01-07 10:18 | PRG ---
DATE OF SERVICE: 01/07/2019 SUBJECTIVE: Ms. Humphreys is doing better this morning. She still has severe problem with itching and rash. She became very fidgety with Benadryl, but Ativan helped her. OBJECTIVE: VITAL SIGNS: Blood pressure 125/69, pulse 76 and regular. LUNGS: Clear. CARDIAC: Normal S1. Normal S2. ABDOMEN: Soft, nontender. ASSESSMENT: 1. Episode of chest pressure recently with normal stress test, previous bypass surgery. 2. Severe rash of uncertain etiology. At this time, we have stopped the atorvastatin and stop clopidogrel. 3. In one week, we will put her on Effient 10 mg a day for an anti-platelet drugs. 4. Leave her off statins for a couple of months and then try different statin. 5. Other medicines are unchanged. 6. Dr. Jacinto saw the patient. It is noted that she has some nonsustained supraventricular tachycardia. Medical therapy advised. 7. Diastolic heart failure is compensated. 8. If the rash persists, wear off diltiazem, could try verapamil but that medicine is in the same family as diltiazem. Can only use very low doses of beta-blockers with her asthma and digoxin may be problematic with history of hypertrophic myopathy. She did have a myectomy done but in the past still has intermittently had some increased gradients. 9. I feel it is best to see us back in about a month. My next step would be if she continues to have a rash, would be to take her off diltiazem and put her on verapamil. The rash made, however, be due to clopidogrel. Job ID: [id number]
--- NOTE | 2019-01-07 11:21 | PRG ---
DATE OF SERVICE: 01/07/2019 SUBJECTIVE: Ms. Humphreys seems to be doing well. No new events noted symptomatically. No chest pains anymore. OBJECTIVE: VITAL SIGNS: Blood pressure is 125/69, heart rate 76, respiratory rate 20, and temperature 98.4 degrees Fahrenheit. GENERAL: Alert and oriented woman, in no apparent distress. NECK: Supple. Jugular veins not distended. CHEST: Coarse without crackles. HEART: Sounds are regular to rate and rhythm. No murmur or gallop. ABDOMEN: Benign. Bowel sounds positive. Left precordial ICD insertion site is well healed. EXTREMITIES: Lower extremity without edema, clubbing, or cyanosis. LABORATORY AND DIAGNOSTIC STUDIES: Telemetry strips were reviewed, reveal sinus rhythm with ventricular pacing. Short and wide complexes, none. Paced episodes seem similar to prior events like atrial tachycardia with [place] AV conduction with bundle branch pattern. ASSESSMENT AND PLAN: Ms. Humphreys is a 68-year-old woman with history of congestive heart failure and hypertrophic cardiomyopathy, preserved LVEF, biventricular ICD in place from 2012, who has short nonsustained atrial tachyarrhythmia episodes documented by device. There is no clear correlation to her symptoms of chest pains which prompted this admission. Occasional recurrences are seen. At this point again, the episodes are too short to be treated and not symptomatic. Consideration for digoxin and calcium channel santos versus beta blockers could be made as Dr. Abdi already planned. At this point, also ICD was functioning adequately with a year battery life left. Atrial ATP therapies are programmed on incase more sustained episodes are seen. Routine followup will be requested in 6 weeks. We will sign off. Thank you for the opportunity to letting me to participate in the care of this patient. Job ID: [id number]
[2019-01-15] MEDS ORDERED: Prasugrel 10 MG TAB PO SCH (09:00)
== END 2019-01-07 12:15 | disposition home or self-care (01) ==
LOC: ERS 17:42 → 2SW 22:52
PROVIDERS: ADMIT Internal Medicine; ATTEND Internal Medicine
DX: R07.89 Other chest pain (principal); I25.10 Atherosclerotic heart disease of native coronary artery without angina pectoris; I48.0 Paroxysmal atrial fibrillation; I42.1 Obstructive hypertrophic cardiomyopathy; J45.909 Unspecified asthma, uncomplicated; E11.9 Type 2 diabetes mellitus without complications; E78.5 Hyperlipidemia, unspecified; K21.9 Gastro-esophageal reflux disease without esophagitis; L29.9 Pruritus, unspecified; I47.1 Supraventricular tachycardia; I11.0 Hypertensive heart disease with heart failure; I50.30 Unspecified diastolic (congestive) heart failure; E66.9 Obesity, unspecified; Z68.28 Body mass index [BMI] 28.0-28.9, adult; Z79.02 Long term (current) use of antithrombotics/antiplatelets; Z79.52 Long term (current) use of systemic steroids; Z79.84 Long term (current) use of oral hypoglycemic drugs; Z79.899 Other long term (current) drug therapy; Z88.6 Allergy status to analgesic agent; Z88.8 Allergy status to other drugs, medicaments and biological substances; Z95.1 Presence of aortocoronary bypass graft; Z95.810 Presence of automatic (implantable) cardiac defibrillator; Z98.890 Other specified postprocedural states
CPT/HCPCS: 71045; 71275; 78452; 80048; 81001; 82550; 82962 ×3; 83690; 83735; 83880; 84484 ×3; 85025; 85379; 87077; 87086; 87186; 93005; 93017; 93306; 94640; 96374; 96375; 96376 ×3; 97139 ×2; 99285; A9500; G0378 ×3; 36415; 36416; 80053; 84443; J1200; J2060; J2785; J2920; J7512; J7620; Q0163; Q9966; S0028

== ENCOUNTER 2019-04-04 15:00 | Emergency (ER) | payer MEDICARE ==
[2019-04-04] MEDS ORDERED: Metoclopramide HCl 10 MG/2 ML VIAL ONE (15:32)
[2019-04-04] MEDS ORDERED: diphenhydrAMINE 50 MG/ML VIAL ONE (15:32)
--- NOTE | 2019-04-04 15:49 | CT ---
CT head noncontrast HISTORY: Headache. FINDINGS: There is no evidence of acute intracranial hemorrhage or infarct. Mild diffuse chronic isch emic small vessel disease within the periventricular white matter. There is no mass effect or shift of midline structures. Calcification within the arterial structures of the brain base. Visualized par anasal sinuses remain well aerated. Postoperative changes of the maxillary sinuses. IMPRESSION: Chronic ischemic small vessel disease. Atherosclerosis. No acute intracranial abnormalities are demonstrated.
[2019-04-04] MEDS ORDERED: HYDROcodone/Acetaminophen 7.5/325 mg Tablet ONE (17:45)
[2019-04-04] MEDS ORDERED: Magnesium 2 GM/50 ML BAG (IN WATER) ONE (17:45)
[2019-04-04] MEDS ORDERED: Acetaminophen 325 MG TAB ONE (17:45)
== END 2019-04-04 19:59 | disposition home or self-care (01) ==
LOC: ERS 15:00
DX: R51 Headache (principal); E11.9 Type 2 diabetes mellitus without complications; Z79.84 Long term (current) use of oral hypoglycemic drugs; K21.9 Gastro-esophageal reflux disease without esophagitis; E78.5 Hyperlipidemia, unspecified; E78.00 Pure hypercholesterolemia, unspecified; I10 Essential (primary) hypertension; Z79.899 Other long term (current) drug therapy
CPT/HCPCS: 70450; 96361; 96365; 96367; 96375; J1200; J2765; J3475

== ENCOUNTER 2019-04-09 15:32 | Observation (INO) | payer MEDICARE ==
[2019-04-09 16:23] LABS: Hemoglobin 12.8 g/dL (12.0-16.0); Mean Corpuscular HGB CONC 34.4 g/dL (32.0-36.0); Mean Corpuscular Hemoglobin 31.2 pg (27.0-31.0); Mean Corpuscular Volume 90.9 fL (78.0-98.0); Mean Platelet Volume 6.8 fL (7.4-10.4); Platelet Count 451 thou/uL (130-400); RBC Distribution Width 12.2 % (11.5-14.5); Red Blood Cell (RBC) Count 4.11 mill/uL (4.20-5.40); White Blood Cell (WBC) Count 15.6 thou/uL (4.8-10.8)
[2019-04-09 16:39] LABS: Band 3 % (5-11); Lymphocytes 4 % (21-51); MDiff Complete? YES; Monocytes 6 % (0-10); Neutrophil 87 % (42-75); Platelet Morphology Comment Appears Increased; RBC Morphology Normal
[2019-04-09 16:42] LABS: ALT (SGPT) 12 U/L (8-55); AST (SGOT) 9 U/L (5-34); Albumin 3.8 g/dL (3.4-4.8); Alkaline Phosphatase 78 U/L (40-110); Anion Gap 14 mmol/L (10-20); BUN (Urea Nitrogen) 12 mg/dL (9.8-20.1); Bilirubin, Total 0.3 mg/dL (0.2-1.2); CK (CPK) 34 U/L (29-168); Calc. Creatinine Clearance 0 mL/min (70-130); Calcium 9.8 mg/dL (7.8-10.44); Carbon Dioxide 26 mmol/L (23-31); Chloride 97 mmol/L (98-107); Estimated GFR-MDRD 62; Globulin 2.6 g/dL (2.4-3.5); Glucose 301 mg/dL (80-115); Protein, Total 6.4 g/dL (6.0-8.3); Sodium 133 mmol/L (136-145)
[2019-04-09 17:03] LABS: CKMB 2.4 ng/mL (0-6.6)
[2019-04-09] MEDS ORDERED: Nitroglycerin 2% Ointment 1 INCH/1 GM Packet ONE (17:22)
[2019-04-09] MEDS ORDERED: Clopidogrel Bisulfate 75 MG TAB ONE (17:22)
--- NOTE | 2019-04-09 17:27 | RAD ---
PORTABLE CHEST: 04/09/19 HISTORY: Atrial fibrillation. COMPARISON: 01/04/19 study. Heart size is enlarged with postop sternotomy changes. Internal defibrillator device is present. The lungs are clear of any infiltrative process. IMPRESSION: Cardiomegaly. No acute changes. Stable exam. POS: TPC
[2019-04-09] MEDS ORDERED: Nitroglycerin 0.4 MG TAB (25 Tab Bottle) PO PRN (18:37)
[2019-04-09] MEDS ORDERED: Dextrose 5% in Water 1,000 ML IV PRN (18:59)
[2019-04-09] MEDS ORDERED: HumaLOG 300 UNITS/3 ML VIAL SC PRN (18:59)
[2019-04-09] MEDS ORDERED: Dextrose 50% Abboject 50 ML SYRINGE SLOW IVP PRN (18:59)
[2019-04-09] MEDS ORDERED: Furosemide 40 MG TAB PO PRN (19:08)
--- NOTE | 2019-04-09 19:36 | HP ---
PRIMARY CARE PROVIDER: Bello Lord MD CHIEF COMPLAINT: Chest discomfort. HISTORY OF PRESENT ILLNESS: Ms. Humphreys is a pleasant 68-year-old lady, who was seen at [facility] on April 09, 2019. She was hospitalized at this facility from January 04 to of this year for paroxysmal atrial tachycardia. She had negative stress test during that hospitalization for atypical chest pain. She reports that 5 days ago, she had headache, fevers, and sweats. She was seen in the emergency room and was told she did not have an infection. She also reports chest pressure over the last few days. It is left-sided, worse with exertion, improved with nitrates in the emergency room, nonradiating, accompanied by shortness of breath and diaphoresis. She denies any nausea or vomiting. She reports that 2 years ago, she had a renal bleed after chiropractor treatment. She reports that her primary care provider is keeping an eye for recurrent renal bleeding. She noticed some blood on her panties recently. She was sent for urinalysis two days ago and for repeat urinalysis earlier today. After submitting the sample, she went home and laid down for 1 hour. She got a call from [employer], who notified that she was in atrial fibrillation. She called her voice coach's office and was advised to go to the emergency room. She also reports a fluttering sensation in the chest today. REVIEW OF SYSTEMS: All systems were reviewed and found to be negative except for the pertinent positives mentioned above. PAST MEDICAL HISTORY: Steroid-dependent asthma; hypertension; diabetes mellitus type 2; dyslipidemia; hypertrophic cardiomyopathy, which obstructed the outflow tract, status post myomectomy and defibrillator placement; coronary artery disease, status post two-vessel coronary artery bypass graft; paroxysmal atrial fibrillation; renal hemorrhage in 2017; and gastroesophageal reflux disease. PAST SURGICAL HISTORY: Two-vessel coronary artery disease, bypass graft; cholecystectomy; myomectomy for hypertrophic obstructive cardiomyopathy; tubal ligation; and defibrillator implant. SOCIAL HISTORY: No history of tobacco use, alcohol use, or recreational drug use. FAMILY HISTORY: Significant for heart disease in her father. ALLERGIES: ASPIRIN, WHICH CAUSES ANAPHYLAXIS AND NONSTEROIDAL ANTI-INFLAMMATORY AGENTS. CURRENT MEDICATIONS: 1. Prednisone 10 mg daily. 2. Coreg 12.5 mg daily. 3. Metformin 1000 mg daily. 4. Spironolactone 25 mg daily. 5. Lasix 40 mg as needed. 6. Cardizem 120 mg daily. 7. Plavix 75 mg daily. 8. Metoprolol tartrate 25 mg daily. 9. Atorvastatin 40 mg at bedtime. 10. Ranitidine 150 mg as needed. 11. Xopenex nebulizers as needed. 12. Proventil inhalations as needed. 13. Flexeril 10 mg every 8 hours as needed. 14. Tylenol No. 3 p.r.n. CODE STATUS: I discussed her code status. She is full code. PHYSICAL EXAMINATION: GENERAL: On examination, Ms. Humphreys is awake and alert, not in acute distress. VITAL SIGNS: Blood pressure is 131/85, pulse 85, respiratory rate 19, and oxygen saturation 96% on room air. Temperature is 99.3 degrees Fahrenheit. EYES: No scleral icterus, no conjunctival pallor. ENT: Moist mucosal membranes. No oropharyngeal erythema or exudates. NECK: Supple, nontender, trachea is in midline. RESPIRATORY: Accessory muscles of breathing are not active. Chest wall movements are symmetric bilaterally. LUNGS: Clear to auscultation without wheeze, rhonchi, or crepitations. CARDIOVASCULAR: S1 and S2 are heard, regular. Peripheral pulses palpable. ABDOMEN: Soft, distended, nontender. Bowel sounds heard. NEUROLOGIC: Cranial nerves 2 through 12 are intact. MUSCULOSKELETAL: Power is 5/5 in all 4 extremities. SKIN: No rashes or subcutaneous nodules. LYMPHATIC: No cervical lymphadenopathy. PSYCHIATRIC: Normal mood, normal affect, the patient is oriented to person, place, and time. LABORATORY DATA: Ms. Humphreys's labs and investigations were reviewed. I reviewed her electrocardiogram, which shows electronic ventricular paced rhythm, occasional premature ventricular complexes. I reviewed her chest x-ray, which does not show any pulmonary infiltrates. She has cardiomegaly. She has leukocytosis with 15,600 white cells, of which 87% are neutrophils; normal hemoglobin; elevated platelet count of 451,000, it was 364,000 on January 06, 2019. Decreased sodium of 133, normal potassium, normal creatinine. Unremarkable LFTs. Indeterminate troponin I of 0.071, it was normal at less than 0.010 on January 05, 2019. Elevated BNP of 726.5. ASSESSMENT AND PLAN: Ms. Humphreys is a pleasant 68-year-old lady, who was seen at [facility] on April 09, 2019. Her problem list includes: 1. Chest pain: Ms. Humphreys is presenting with chest pain. Etiology is unclear, she had a normal nuclear stress test a few months ago. She will be admitted to telemetry on observation status. We will recheck troponin I. We will consult Cardiology for opinion and help with management. 2. Atrial fibrillation: The patient has a history of chronic atrial fibrillation. Her defibrillator was reportedly interrogated at another emergency room. We will try to locate the report. 3. Diabetes mellitus type 2: We will start the patient on Accu-Cheks and insulin sliding scale. 4. Dyslipidemia: We will continue statin. 5. The patient reports that she is not supposed to take beta blockers for reasons that are not clear. However, her home medications do list metoprolol. Many thanks for allowing me to participate in your patient's care. Please feel free to contact me with any questions or concerns. LEVEL OF RISK: High. LEVEL OF COMPLEXITY: High. Job ID: [id number]
[2019-04-09 19:55] LABS: Troponin I 0.049 ng/mL (< 0.028)
[2019-04-09] MEDS ORDERED: Spironolactone 25 MG TAB PO SCH (21:00)
[2019-04-09 21:20] VITALS: BMI 29.7
[2019-04-09] MEDS: cefTRIAXone\\ROCEPHIN 1 GM in Sodium Chloride 0.9% 100 ML IVPB SCH (22:34)
[2019-04-09 22:47] LABS: Troponin I 0.071 ng/mL (< 0.028)
[2019-04-10] MEDS: HYDROcodone/Acetaminophen 7.5/325 mg Tablet PO PRN ×6 (00:31→23:02)
[2019-04-10] MEDS ORDERED: HYDROcodone/Acetaminophen 7.5/325 mg Tablet PO SCH (01:00)
[2019-04-10 09:21] LABS: #Eosinphils 0.2 thou/uL (0.0-0.7); #Lymphocytes 2.8 thou/uL (1.20-3.40); #Monocytes 1.1 thou/uL (0.11-0.59); #Neutrophils 7.7 thou/uL (1.40-6.50); %Basophils 0.3 % (0.0-1.0); %Eosinophils 1.7 % (0.0-10.0); %Lymphocytes 23.6 % (21.0-51.0); %Monocytes 9.6 % (0.0-10.0); %Neutrophils 64.9 % (42.0-75.0); Hemoglobin 11.4 g/dL (12.0-16.0); Mean Corpuscular HGB CONC 34.8 g/dL (32.0-36.0); Mean Corpuscular Hemoglobin 30.9 pg (27.0-31.0); Mean Corpuscular Volume 88.7 fL (78.0-98.0); Mean Platelet Volume 6.6 fL (7.4-10.4); Platelet Count 396 thou/uL (130-400); RBC Distribution Width 12.2 % (11.5-14.5); Red Blood Cell (RBC) Count 3.69 mill/uL (4.20-5.40); White Blood Cell (WBC) Count 11.8 thou/uL (4.8-10.8)
[2019-04-10 09:47] LABS: Anion Gap 10 mmol/L (10-20); BUN (Urea Nitrogen) 8 mg/dL (9.8-20.1); Calc. Creatinine Clearance 93 mL/min (70-130); Calcium 8.9 mg/dL (7.8-10.44); Carbon Dioxide 28 mmol/L (23-31); Chloride 102 mmol/L (98-107); Estimated GFR-MDRD 82; Glucose 100 mg/dL (80-115); Potassium 3.2 mmol/L (3.5-5.1); Sodium 137 mmol/L (136-145)
[2019-04-10] MEDS: Clopidogrel Bisulfate 75 MG TAB PO SCH (09:48)
[2019-04-10] MEDS: predniSONE 20 MG TAB PO SCH (09:48)
[2019-04-10] MEDS: Spironolactone 25 MG TAB PO SCH (09:48)
[2019-04-10] MEDS: metFORMIN 500 MG TAB PO SCH (16:41)
--- NOTE | 2019-04-10 18:03 | PDOC.HOSPP ---
- Subjective Encounter Date: 04/10/19 Encounter Time: 11:00 Subjective: Pt seen for followup re; chest pain. Feels better today. No fevers. - Objective Vital Signs & Weight: Vital Signs (12 hours) Temp Pulse Resp BP Pulse Ox 04/10/19 15:47 98.5 F 74 14 110/54 L 92 L 04/10/19 11:10 98.8 F 81 20 124/64 96 04/10/19 07:29 98.2 F 76 16 130/60 96 Weight Weight 172 lb 14.4 oz I&O: 04/09/19 04/10/19 04/11/19 06:59 06:59 06:59 Intake Total 240 Output Total 700 300 Balance -460 -300 Result Diagrams: 04/10/19 09:10 04/10/19 09:10 Additional Labs: Accuchecks 04/10/19 04/10/19 04/10/19 17:03 11:15 05:52 POC Glucose 183 H 111 H 114 H 04/09/19 22:37 POC Glucose 141 H Labs and MARs reviewed by me EKG Reviewed by me: Yes (Tele: V-paced) Hospitalist ROS - Review of Systems Cardiovascular: denies: chest pain, palpitations, orthopnea, paroxysmal noc. dyspnea, edema, light headedness Gastrointestinal: denies: nausea, vomiting, abdominal pain, diarrhea, constipation, melena, hematochezia - Medication Medications: Active Medications Generic Name Dose Route Start Last Admin Trade Name Freq PRN Reason Stop Dose Admin Hydrocodone Bitart/Acetaminophen 1 tab 04/10/19 00:05 04/10/19 13:54 Bryan 7.5/325 PO 1 tab Q4H PRN Administration Moderate Pain (4-6) Clopidogrel Bisulfate 75 mg 04/10/19 09:00 04/10/19 09:48 Plavix PO 75 mg DAILY HARISH Administration Diltiazem HCl 180 mg 04/10/19 09:00 04/10/19 09:48 Cardizem Cd PO 180 mg DAILY HARISH Administration Ceftriaxone Sodium 1 gm/ 100 mls @ 200 mls/hr 04/09/19 21:00 04/09/19 22:34 Sodium Chloride IVPB 100 mls 2100 HARISH Administration Metformin HCl 1,000 mg 04/10/19 09:00 04/10/19 16:41 Glucophage PO Not Given DAILY HARISH Metoprolol Succinate 12.5 mg 04/10/19 09:00 04/10/19 09:48 Toprol Xl PO 12.5 mg DAILY HARISH Administration Nitroglycerin 0.4 mg 04/09/19 18:37 04/09/19 22:26 Nitrostat PO 0.4 mg Q5MIN PRN Administration Chest Pain Prednisone 10 mg 04/10/19 09:00 04/10/19 09:48 Prednisone PO 10 mg DAILY HARISH Administration Spironolactone 25 mg 04/10/19 08:00 04/10/19 09:48 Aldactone PO 25 mg QAM-WM HARISH Administration - Exam General Appearance: NAD Eye: anicteric sclera ENT: moist mucosa Neck: supple, no JVD Heart: RRR, no rubs Respiratory: CTAB Gastrointestinal: soft, non-tender Neurological: no weakness Psychiatric: normal affect, normal behavior Hosp A/P (1) Chest pain Code(s): R07.9 - CHEST PAIN, UNSPECIFIED Status: Acute (2) UTI (urinary tract infection) Status: Acute (3) Hypokalemia Code(s): E87.6 - HYPOKALEMIA Status: Acute (4) Diabetes Code(s): E11.9 - TYPE 2 DIABETES MELLITUS WITHOUT COMPLICATIONS Status: Chronic (5) Hypertension Code(s): I10 - ESSENTIAL (PRIMARY) HYPERTENSION Status: Chronic (6) AICD (automatic cardioverter/defibrillator) present Code(s): Z95.810 - PRESENCE OF AUTOMATIC (IMPLANTABLE) CARDIAC DEFIBRILLATOR Status: Chronic (7) Afib Code(s): I48.91 - UNSPECIFIED ATRIAL FIBRILLATION Status: Chronic - Plan plan discussed w/ family, out of bed/ambulate Pt awaiting cardiology input, clinically better. Continue IV ceftriaxone. Continue accuchecks and insulin sliding scale. HTN controlled.
[2019-04-10] MEDS ORDERED: Dronedarone HCl 400 MG TAB PO SCH (18:15)
[2019-04-10] MEDS ORDERED: Potassium Chloride 20 MEQ TAB PO SCH (18:15)
--- NOTE | 2019-04-10 18:28 | PRG ---
DATE OF SERVICE: 04/10/2019 SUBJECTIVE: Ms. Humphreys came to the hospital with difficulty breathing, weakness, and fatigue. She also has some sharp pounding chest pain, atypical for angina. PAST HISTORY: 1. She has a history of coronary artery disease with previous bypass. 2. History of hypertrophic cardiomyopathy, status post surgery for myectomy. 3. Now is having paroxysmal atrial fibrillation, highly symptomatic. 4. Severe asthma. 5. Allergic to aspirin. The patient feels well right this moment. OBJECTIVE: VITAL SIGNS: Blood pressure is 110/54, pulse 74 and regular. LUNGS: Clear. CARDIAC: Normal S1, normal S2. ABDOMEN: Soft and nontender. EXTREMITIES: No clubbing or cyanosis. There is minimal edema. PERTINENT LABORATORY DATA: 1. The pacemaker defibrillator was interrogated. She is having increasing amounts of atrial fibrillation. She is highly symptomatic. 2. Potassium is low at 3.2. 3. Troponin indeterminate at 0.071. 4. On EKG, she currently does have sinus rhythm, but she has paroxysmal atrial fibrillation. ASSESSMENT: 1. Paroxysmal atrial fibrillation, highly symptomatic. 2. Reactive airway disease, asthma. 3. Coronary artery disease. 4. Previous myectomy. 5. Status post biventricular pacer defibrillator. PLAN: 1. Add Eliquis. 2. Add Multaq. 3. Agree repleting potassium. We will follow with you. Job ID: [id number]
[2019-04-10] MEDS: cefTRIAXone\\ROCEPHIN 1 GM in Sodium Chloride 0.9% 100 ML IVPB SCH (20:41)
[2019-04-10] MEDS: Apixaban 5 MG TAB PO SCH (20:41)
[2019-04-10] MEDS ORDERED: HumaLOG 300 UNITS/3 ML VIAL SC PRN (21:09)
[2019-04-11 05:04] LABS: #Eosinphils 0.1 thou/uL (0.0-0.7); #Lymphocytes 0.8 thou/uL (1.20-3.40); #Monocytes 0.5 thou/uL (0.11-0.59); #Neutrophils 9.7 thou/uL (1.40-6.50); %Basophils 0.2 % (0.0-1.0); %Eosinophils 0.5 % (0.0-10.0); %Lymphocytes 7.5 % (21.0-51.0); %Monocytes 4.8 % (0.0-10.0); Hemoglobin 11.9 g/dL (12.0-16.0); Mean Corpuscular HGB CONC 35.1 g/dL (32.0-36.0); Mean Corpuscular Hemoglobin 31.8 pg (27.0-31.0); Mean Corpuscular Volume 90.6 fL (78.0-98.0); Mean Platelet Volume 6.5 fL (7.4-10.4); Platelet Count 439 thou/uL (130-400); RBC Distribution Width 12.2 % (11.5-14.5); Red Blood Cell (RBC) Count 3.75 mill/uL (4.20-5.40); White Blood Cell (WBC) Count 11.1 thou/uL (4.8-10.8)
[2019-04-11 05:20] LABS: Anion Gap 12 mmol/L (10-20); BUN (Urea Nitrogen) 8 mg/dL (9.8-20.1); Calc. Creatinine Clearance 89 mL/min (70-130); Calcium 9.3 mg/dL (7.8-10.44); Carbon Dioxide 28 mmol/L (23-31); Chloride 100 mmol/L (98-107); Estimated GFR-MDRD 78; Glucose 163 mg/dL (80-115); Potassium 4.4 mmol/L (3.5-5.1); Sodium 136 mmol/L (136-145)
[2019-04-11] MEDS ORDERED: Dronedarone HCl 400 MG TAB PO SCH (08:00)
[2019-04-11] MEDS: Apixaban 5 MG TAB PO SCH (08:35)
[2019-04-11] MEDS: metFORMIN 500 MG TAB PO SCH (08:36)
[2019-04-11] MEDS: Clopidogrel Bisulfate 75 MG TAB PO SCH (08:36)
[2019-04-11] MEDS: predniSONE 20 MG TAB PO SCH (08:36)
[2019-04-11] MEDS: Spironolactone 25 MG TAB PO SCH (08:37)
[2019-04-11] MEDS: HYDROcodone/Acetaminophen 7.5/325 mg Tablet PO PRN (11:16)
--- NOTE | 2019-04-11 15:19 | PRG ---
DATE OF SERVICE: 04/11/2019 SUBJECTIVE: Ms. Humphreys feels much better today. She is maintaining sinus rhythm. OBJECTIVE: VITAL SIGNS: Blood pressure 118/69, pulse 80 and it is regular. LUNGS: Clear. CARDIAC: Normal S1. Normal S2. ABDOMEN: Soft, nontender. ASSESSMENT: 1. Congestive heart failure, diastolic, stable, improved. 2. Paroxysmal atrial fibrillation, highly symptomatic in maintaining sinus rhythm. 3. History of severe reactive airway disease. 4. Coronary artery disease. 5. Previous hypertrophic cardiomyopathy, myectomy. PLAN: 1. Go home on Multaq 400 mg twice a day. 2. Add Eliquis 5 mg twice a day. 3. Continue Plavix for at least a month and consider stopping the Plavix and leaving her on Eliquis alone. I asked her to see us in a couple of weeks. 4. If she has recurrent atrial fibrillation, strong consideration for atrial fibrillation ablation as she is very symptomatic when she goes into atrial fibrillation. Job ID: [id number]
[2019-04-11 16:04] VITALS: BP 107/70; TEMP 98.7
--- NOTE | 2019-04-11 19:24 | DIS ---
DATE OF ADMISSION: 04/09/2019 DATE OF DISCHARGE: 04/11/2019 PRIMARY CARE PROVIDER: Dr. Bello Lord. DISCHARGE DIAGNOSES: 1. Paroxysmal atrial fibrillation. 2. Chronic diastolic congestive heart failure, [place] Heart Association class 2. 3. Urinary tract infection. 4. Hyponatremia. CONDITION OF THE PATIENT ON THE DAY OF DISCHARGE: Stable. I assessed Ms. Humphreys on the day of discharge. She denies any chest pain or shortness of breath. Vital signs are stable. S1 and S2 are heard, regular. Lungs are clear to auscultation bilaterally. CONSULTATIONS DURING THIS HOSPITALIZATION: Cardiology, Dr. Abdi. FOLLOWUP APPOINTMENTS: Follow up with primary care provider in 3 to [address] Abdi in 2 weeks' time. HOSPITAL COURSE: Ms. Humphreys is a pleasant 68-year-old lady, who was admitted to [facility] on April 09, 2019 for symptomatic atrial fibrillation. She also had chest pain, which resolved. Please refer to my history and physical note dated April 09, 2019 for further details. She was seen by Cardiology Service. She was monitored on telemetry. She improved clinically. She is being started on Multaq and apixaban prior to discharge. Urinalysis was suggestive of urinary tract infection. She was treated with ceftriaxone, stepped down to Omnicef at the time of discharge. Final urine culture is negative. She was advised to follow up with primary care provider for final blood culture reports. On the day of discharge, she has normal electrolytes, normal creatinine, white count of 11,100, hemoglobin 11.9, and platelet count of 439,000. Many thanks for allowing me to participate in your patient's care. Please feel free to contact me with any questions or concerns. DISCHARGE MEDICATIONS: Ms. Humphreys's discharge medications include; 1. DuoNeb p.r.n. 2. Lipitor 40 mg daily. 3. Plavix 75 mg daily. 4. Metformin 1000 mg daily. 5. Toprol-XL 12.5 mg daily. 6. Prednisone 10 mg daily. 7. Spironolactone 25 mg 2 times a day. 8. Apixaban 5 mg 2 times a day. 9. Omnicef 300 mg 2 times a day for one more week. 10. Cardizem CD 180 mg daily. 11. Multaq 400 mg 2 times a day. 12. Xopenex inhaler p.r.n. 13. Ventolin inhaler p.r.n. 14. Colace p.r.n. 15. Lasix p.r.n. 16. [place] p.r.n. 17. Potassium chloride p.r.n. DISCHARGE DESTINATION: Home. Job ID: [id number]
--- NOTE | 2019-04-13 02:46 | EKG ---
Test Reason : Blood Pressure : / mmHG Vent. Rate : 090 BPM Atrial Rate : 090 BPM P-R Int : 000 ms QRS Dur : 162 ms QT Int : 412 ms P-R-T Axes : 079 -59 123 degrees QTc Int : 504 ms Ventricular-paced rhythm with occasional Premature ventricular complexes Biventricular pacemaker detected Left axis deviation Abnormal ECG Confirmed by MARYANA TRAMMELL, DANYELLE Rincon ([id number]), digital editor CARROLL WEAVER ([id number]) on 04/13/2019 2:46:14 AM Referred By: Confirmed By:DANYELLE MIJARES MD
== END 2019-04-11 16:58 | disposition home or self-care (01) ==
LOC: ERS 15:32 → 2SW 17:45
PROVIDERS: ADMIT Internal Medicine; ATTEND Internal Medicine
DX: I48.0 Paroxysmal atrial fibrillation (principal); R07.89 Other chest pain; I11.0 Hypertensive heart disease with heart failure; I50.32 Chronic diastolic (congestive) heart failure; N39.0 Urinary tract infection, site not specified; E87.1 Hypo-osmolality and hyponatremia; E78.5 Hyperlipidemia, unspecified; J45.909 Unspecified asthma, uncomplicated; E11.9 Type 2 diabetes mellitus without complications; I25.10 Atherosclerotic heart disease of native coronary artery without angina pectoris; K21.9 Gastro-esophageal reflux disease without esophagitis; I42.2 Other hypertrophic cardiomyopathy; E87.6 Hypokalemia; Z79.02 Long term (current) use of antithrombotics/antiplatelets; Z79.52 Long term (current) use of systemic steroids; Z79.84 Long term (current) use of oral hypoglycemic drugs; Z79.899 Other long term (current) drug therapy; Z88.6 Allergy status to analgesic agent; Z88.8 Allergy status to other drugs, medicaments and biological substances; Z95.1 Presence of aortocoronary bypass graft; Z95.810 Presence of automatic (implantable) cardiac defibrillator
CPT/HCPCS: 36415; 36416; 71045; 80048; 80053; 81001; 82550; 82553; 83880; 84484; 85025; 87040; 87086; 87804; 93005; 94760; 96365; G0378; J0696; J3490; J7512

== ENCOUNTER 2019-05-05 09:27 | Outpatient (CLI) | payer MEDICARE ==
--- NOTE | 2019-05-05 09:50 | RAD ---
EXAM: Chest 2 views: HISTORY: Dyspnea COMPARISON: 04/09/2019 FINDINGS: Postop sternotomy. Left ICD. Vertebral body collapse of one of the midthoracic vertebral bodies which does not appear acute. Evidence for healed right rib fracture. Minimal linear parenchymal changes in the lung bases which appear stable. Heart size:Stable but minimally enlarged. Lungs:Clear of acute process. Atherosclerotic changes of the aorta. No confluent pneumonia, overt edema, pleural effusion, pneumothorax, or other significant acute proce ss. IMPRESSION: Atherosclerosis of the aorta. No acute intrathoracic disease.
== END 2019-05-05 09:28 | disposition home or self-care (01) ==
LOC: RAD 09:27
PROVIDERS: ATTEND Internal Medicine Critical Care Medicine
DX: R06.00 Dyspnea, unspecified (principal); I70.0 Atherosclerosis of aorta
CPT/HCPCS: 71046

== ENCOUNTER 2019-07-09 17:30 | Observation (INO) | payer MEDICARE ==
[~2019-07-09 17:30] MED LIST: Iopamidol-370 76% 500 ML 1 ML ONE
[2019-07-09 18:06] LABS: #Basophils 0.1 thou/uL (0.0-0.2); #Lymphocytes 1.7 thou/uL (1.20-3.40); #Monocytes 0.9 thou/uL (0.11-0.59); %Basophils 0.4 % (0.0-1.0); %Eosinophils 0.2 % (0.0-10.0); %Lymphocytes 11.4 % (21.0-51.0); %Monocytes 6.2 % (0.0-10.0); %Neutrophils 81.9 % (42.0-75.0); Mean Corpuscular Hemoglobin 30.2 pg (27.0-31.0); Mean Corpuscular Volume 91.7 fL (78.0-98.0); Mean Platelet Volume 7.3 fL (7.4-10.4); Platelet Count 402 thou/uL (130-400); RBC Distribution Width 12.4 % (11.5-14.5); Red Blood Cell (RBC) Count 4.95 mill/uL (4.20-5.40); White Blood Cell (WBC) Count 14.6 thou/uL (4.8-10.8)
[2019-07-09 18:32] LABS: ALT (SGPT) 9 U/L (8-55); AST (SGOT) 11 U/L (5-34); Albumin 4.4 g/dL (3.4-4.8); Alkaline Phosphatase 76 U/L (40-110); Anion Gap 19 mmol/L (10-20); BUN (Urea Nitrogen) 11 mg/dL (9.8-20.1); Bilirubin, Total 0.4 mg/dL (0.2-1.2); Calc. Creatinine Clearance 0 mL/min (70-130); Calcium 9.9 mg/dL (7.8-10.44); Carbon Dioxide 22 mmol/L (23-31); Chloride 100 mmol/L (98-107); Estimated GFR-MDRD 65; Globulin 2.3 g/dL (2.4-3.5); Glucose 154 mg/dL (80-115); Potassium 4.7 mmol/L (3.5-5.1); Protein, Total 6.7 g/dL (6.0-8.3); Sodium 136 mmol/L (136-145)
[2019-07-09 18:42] LABS: INR-International Normal Ratio 1.5; PTT 27.5 SEC (22.9-36.1); Prothrombin Time 17.8 SEC (12.0-14.7)
[2019-07-09] MEDS ORDERED: Metoprolol Tartrate 5 MG/5 ML VIAL ONE (18:53)
[2019-07-09 18:55] LABS: Bacteria/HPF None Seen HPF (None Seen); Bilirubin Negative (Negative); Blood, Urine 1+ (Negative); Clarity Clear (Clear); Glucose, Urine (Dipstick) Normal (Negative); Leukocyte Negative Leu/uL (Negative); Nitrite Negative (Negative); Protein, Urine (Dipstick) Negative (Neg-Trace); RBC/HPF 0-3 HPF (0-3); Squamous Epithelial None Seen HPF (0-3); Urobilinogen Normal mg/dL (Less than 2); WBC/HPF 0-3 HPF (0-3)
--- NOTE | 2019-07-09 19:29 | RAD ---
PORTABLE CHEST: 07/09/19 PROVIDED CLINICAL HISTORY: Dyspnea. FINDINGS: Comparison 04/09/19. Cardiac and mediastinal silhouette is unchanged in appearance. Median sternotomy changes are noted. A therosclerosis is demonstrated. No focal consolidation, pleural fluid or pneumothorax apparent. IMPRESSION: Cardiomegaly without evidence for an acute cardiopulmonary process. POS: [facility]
[2019-07-09] MEDS ORDERED: cefTRIAXone\\ROCEPHIN 2 GM VIAL ONE (20:52)
[2019-07-09 21:39] LABS: Troponin I 0.025 ng/mL (< 0.028)
[2019-07-09] MEDS ORDERED: Acetaminophen 325 MG TAB PO PRN (22:32)
[2019-07-09] MEDS ORDERED: Docusate 100 MG CAP PO PRN (22:34)
[2019-07-09] MEDS ORDERED: Morphine 4 MG/ML VIAL ONE (22:36)
[2019-07-09] MEDS ORDERED: HYDROcodone/Acetaminophen 7.5/325 mg Tablet ONE (22:43)
--- NOTE | 2019-07-09 22:52 | CT ---
CT ANGIOGRAM THORAX WITH IV CONTRAST AND 3D RECONSTRUCTIONS; 07/09/19 HISTORY: Dyspnea. History of atrial fibrillation. COMPARISON: 01/05/19. FINDINGS: No filling defects are seen in the pulmonary arteries to suggest a pulmonary embolus. The thoracic aorta is normal in caliber. Vascular calcifications are seen in the thoracic aorta as we ll as involving the coronary arteries. The thoracic aorta is not well opacified to evaluate for aorti c dissection. Postsurgical changes related to CABG are noted. The heart is enlarged. There is a left atrial occlusi on device noted in place. There are parenchymal and linear densities seen within the right middle lo be stable from prior study and likely related to an area of mild scarring. Minimal linear scar versus atelectasis is present at each lung base. No new area of consolidation or pleural fluid is identifie d. Remote right sided rib fractures are identified. There is significant artifact from the power pack device of the AICD, but there is decreased density surrounding the power pack device. This could potentially be related to hemorrhage or possibly second andrzej to infection. Clinical correlation is recommended. This was not seen on the study of 01/05/19. There is a hypodense lesion again seen within the lateral segment left hepatic lobe probably related to hepatic cyst, unchanged from prior study. Again noted is an overall stable compression fracture in volving the T8 vertebral body. IMPRESSION: 1. Significant streak artifact from left AICD power pack device, but there is now decreased dens ity surrounding the power pack device which could be related to either residual hemorrhage due to rec ent revision or possibly secondary to infection. This cannot be delineated based on this exam. Clinic al correlation is suggested. 2. No CT evidence of a pulmonary embolus. 3. Vascular calcifications and cardiomegaly. Left atrial occlusion device is again seen. 4. CTA chest is stable from prior study. POS: [facility]
--- NOTE | 2019-07-10 00:01 | HP ---
PRIMARY CARE PHYSICIAN: Bello Lord MD. PUBLIC RELATIONS CONSULTANT: Fani Abdi MD. GENERAL INTERN: Rafael Jacinto MD, [facility] and Juan Scales MD in [place], [place]. CHIEF COMPLAINT: Shortness of breath x1 week. HISTORY OF PRESENT ILLNESS: A 68-year-old female with past medical history of paroxysmal atrial fibrillation, who underwent previous ablation and Watchman procedure in late May 2019, currently on Eliquis, Toprol-XL 12.5 mg once daily, and Cardizem CD 180 mg once daily, was taken of Multaq at that time, hypertrophic cardiomyopathy requiring prior open-heart surgery and repair with AICD placement and recent replacement in late May 2019, coronary artery disease, on Plavix, chronic prednisone therapy 10 mg daily due to prior misdiagnosis, hypertension, dyslipidemia, type 2 diabetes mellitus, diastolic CHF, COPD, 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 The patient reports earlier this week, training generalist's office that she was reverting back to atrial fibrillation with a rate into the 120s. She saw her supervisor in circuit testing, Dr. Jacinto one day prior in the office and had blood work done revealing a revealed an elevated BNP. Today, her symptoms progressed and she was instructed to take an additional Toprol-XL 12.5 mg tablet this afternoon and referred to the ER for further evaluation. In the ER, the patient was reported to be in atrial fibrillation 120s and was administered IV Lopressor 5 mg with conversion to normal sinus rhythm, 70s to 80s. Initial cardiac biomarkers were negative. CTA chest, official report pending, was negative for pulmonary embolism but suspected by the ER physician for pneumonia and the patient apparently given IV Rocephin 2 g. However, the patient denies any fevers, chills, sweats, cough, nausea, vomiting, diarrhea, or feelings of illness. She denies any peripheral edema. She is accompanied by her daughter. She has an appointment for ARI on Sunday with supervisor in circuit testing in [place] for evaluation of anticoagulation discontinuation. She took her as-needed Lasix tablets at home 40 mg tablet today and 20 mg tablet yesterday. She offers no other acute complaints at this time. PAST MEDICAL HISTORY: Paroxysmal atrial fibrillation with prior ablation and Watchman procedure in late May 2019, AICD exchange in late May 2019, hypertrophic cardiomyopathy requiring open-heart surgery, diastolic CHF, CAD, hypertension, dyslipidemia, COPD, chronic steroid use secondary to prior misdiagnosis, CKD, chronic pain. PAST SURGICAL HISTORY: Open-heart surgery for hypertrophic cardiomyopathy, EP ablation for atrial fibrillation, multiple AICD exchanges, most recent in May 2019, cholecystectomy, tubal ligation, nasal surgery. SOCIAL HISTORY: The patient lives at home with spouse. She denies tobacco or alcohol use. She is ambulatory without assistive device and does not use home oxygen. ALLERGIES: DOCUMENTED TO ASPIRIN AND NSAIDS. REVIEW OF SYSTEMS: Pertinent positives as per HPI. Remainder of the systems negative. MEDICATIONS: Reviewed as per admission medication reconciliation. FAMILY HISTORY: Mother from lung cancer at 59. Father from prostate cancer at 67. PHYSICAL EXAMINATION: VITAL SIGNS: T-max afebrile, pulse currently 70s and sinus rhythm, respirations 14 to 16 and labored, blood pressure 106/62, temperature 97.8, oxygen saturation 96% on room air. GENERAL APPEARANCE: Elderly female who is awake, alert, oriented, coherent, lucid, not in any obvious distress. HEENT: Normocephalic, atraumatic. No facial asymmetry. Pupils equally round. Extraocular muscles intact. Mucous membranes moist. NECK: Supple. CARDIOVASCULAR: S1, S2. Regular rate and rhythm. No harsh murmur appreciated. There is median sternotomy scar noted. Left chest wall ICD pocket noted. LUNGS: Nonlabored respiration on bilateral posterior auscultation. Symmetrical chest expansion. No wheezing or rales noted. Possibly some scattered rhonchi in right upper posterior lung. ABDOMEN: Soft, nondistended. Nonspecific tenderness throughout. Bowel sounds noted. EXTREMITIES: No edema, cyanosis, or deformities noted. SKIN: Warm to touch without rash or pallor or abrasion. LABORATORY DATA: Troponin I negative x2. Lactic 1.6. D-dimer 0.60. Urinalysis unremarkable. INR 1.5. BNP 772. Sodium 136, potassium 4.7, chloride 100, bicarb 22, glucose 154, BUN and creatinine 11/0.86, GFR 65. LFTs unremarkable. White blood cell count 14.6, hemoglobin and hematocrit 15/45.3, platelets 402. IMAGING: CTA chest, PE protocol, official results pending. One-view chest x-ray, no acute abnormality. ASSESSMENT: 1. Paroxysmal atrial fibrillation with rapid ventricular response, currently in normal sinus rhythm. 2. Dyspnea, possibly secondary to acute on chronic diastolic congestive heart failure exacerbation . 3. History of electrophysiology ablation and Watchman procedure in late May [address] Scales in [place], [place]. 4. History of automatic implantable cardioverter defibrillator replacement in late [address] Scales in [place], [place]. 5. History of hypertrophic cardiomyopathy, status post open-heart surgery. 6. Chronic steroid use 10 mg daily. 7. Coronary artery disease. 8. Benign hypertension. 9. Dyslipidemia. 10. Chronic obstructive pulmonary disease, not in exacerbation. 11. Diabetes mellitus. 12. Chronic pain. PLAN: 1. The patient will be admitted as observation status and placed on telemetry monitoring. She has known history of atrial fibrillation requiring prior ablation and Watchman procedure in late May 2019 and was taken off Multaq at that time 400 mg twice daily and has been compliant with her Cardizem CD 180 mg p.o. daily, Toprol-XL 12.5 mg p.o. daily, Eliquis 5 mg b.i.d., and p.r.n. Lasix which she took 2 doses in the past 2 days. She has received 5 mg IV Lopressor in the ER and has remained in normal sinus rhythm. We will increase home dose Toprol-XL to 25 mg daily and continue Cardizem CD and continue Eliquis 5 mg b.i.d. We will administer one dose of IV Lasix in a.m. for possible mild pulmonary edema secondary to tachyarrhythmia and possibly acute on chronic diastolic congestive heart failure exacerbation. The patient's training generalist consulted for medication optimization. The patient has followup with her supervisor in circuit testing in [place], [place], on Sunday for ARI for consideration of anticoagulation discontinuation. We will continue remainder of home medications including chronic steroids. The patient was given IV Rocephin in the ER for low suspicion of infectious etiology and no further antibiotics will be continued at this time. The official CT results are still pending. 2. Deep venous thrombosis prophylaxis with Eliquis. 3. Check a.m. labs. 4. Code status: Full code as discussed with the patient. Her spouse is the surrogate decision maker, followed by her family members. 5. Disposition: Telemetry observation status. Job ID: [id number]
[2019-07-10 01:02] LABS: Troponin I 0.038 ng/mL (< 0.028)
[2019-07-10] MEDS: HYDROcodone/Acetaminophen 7.5/325 mg Tablet PO PRN ×4 (03:06→17:23)
[2019-07-10 05:24] LABS: Anion Gap 13 mmol/L (10-20); BUN (Urea Nitrogen) 12 mg/dL (9.8-20.1); Calc. Creatinine Clearance 66 mL/min (70-130); Calcium 9.1 mg/dL (7.8-10.44); Carbon Dioxide 29 mmol/L (23-31); Chloride 99 mmol/L (98-107); Estimated GFR-MDRD 64; Glucose 90 mg/dL (80-115); Potassium 3.9 mmol/L (3.5-5.1); Sodium 137 mmol/L (136-145)
[2019-07-10] MEDS ORDERED: Furosemide 40 MG/4 ML VIAL SLOW IVP SCH (06:00)
[2019-07-10] MEDS: predniSONE 20 MG TAB PO SCH (08:43)
[2019-07-10] MEDS: Clopidogrel Bisulfate 75 MG TAB PO SCH (08:43)
[2019-07-10] MEDS: Apixaban 5 MG TAB PO SCH ×2 (08:43→20:16)
[2019-07-10] MEDS: Atorvastatin Calcium 40 MG TAB PO SCH (08:44)
[2019-07-10] MEDS: Spironolactone 25 MG TAB PO SCH ×2 (08:44→20:17)
[2019-07-10] MEDS ORDERED: PROPOFOL 200 MG/20 ML VIAL ONE (08:59)
[2019-07-10] MEDS ORDERED: Dofetilide 0.25 MG CAP PO SCH (09:00)
--- NOTE | 2019-07-10 10:49 | CON ---
DATE OF CONSULTATION: 07/10/2019 HISTORY OF PRESENT ILLNESS: This is a followup visit note for Katalina Humphreys. I am seeing her after her admission to [facility]. She was seen in my office on Sunday, at which point she has continued fatigue and tiredness and dyspnea after her recent pulmonary venous isolation and a Watchman procedure as well as LV lead revision in [place]. She has not been taking Lasix on a regular basis, but restarted after requesting so. Her BNP was elevated. Lasix did not resolve her abdominal fullness and dyspnea, and hence she got admitted. Also, she was noted to be in atrial fibrillation/atypical flutter on admit. OBJECTIVE DATA: VITAL SIGNS: Blood pressure is 117/67, heart rate 77, respiratory rate 13, and temperature 98.5 degrees Fahrenheit. GENERAL: This is an alert and oriented woman, in no apparent distress. NECK: Supple. Jugular veins not distended. CHEST: Coarse without crackles. HEART: Sounds are regular to rate and rhythm. No murmur or gallop. ABDOMEN: Benign. Bowel sounds positive. EXTREMITIES: Lower extremities without edema, clubbing, or cyanosis. DATABASE: The lab data reviewed, revealing white cell count is 14.6, hemoglobin 15, and platelet count is 402. Sodium 137, potassium 3.9, BUN is 12, and creatinine 0.88. Troponin-I is 0.025 and 0.038 consecutively. AST and ALT are 11 and 9. The BNP on the was 772. EKG is reviewed. Initial EKG revealing atrial fibrillation/atypical flutter with intermittent ventricular pacing, alternatively [place] conduction. The rate is 114 beats per minute. Subsequent EKG at 10:45 last night revealing sinus rhythm, ventricular pacing, QTc is 483 milliseconds with prolonged QRS as well. MEDICATIONS: List reviewed, revealin. Tylenol. 2. [place]. 3. DuoNeb. 4. Eliquis. 5. Lipitor. 6. Plavix. 7. Cardizem. 8. Colace. 9. Lasix. 10. Metoprolol succinate. 11. Prednisone. 12. Aldactone on the list. SOCIAL HISTORY: Reviewed as above. No change from prior visit. FAMILY HISTORY: Reviewed as above. No change from prior visit. PAST HISTORY: Reviewed as above. No change from prior visit. ASSESSMENT AND PLAN: 1. Acute fluid overload, being diuresed, improving. 2. Recurrent atrial arrhythmias. a. Status post pulmonary venous isolation procedure on 05/28/2019 and watchman device placement. 3. History of biventricular implantable cardiac defibrillator in place, requiring LV lead revision and generator change in 05/28/2019, [employer] device, without apparent. 4. History of steroid-dependent asthma. 5. History of hematuria in the past, now stable on Eliquis. 6. History of aspirin allergy. 7. Diabetes. 8. History of left bundle-branch block. PLAN: 1. At this point, we will continue diuresis as initiated. I think Tikosyn to suppress arrhythmias would be reasonable. We will initiate 500 mcg and follow QTc and prolonged QRS due to pacing still would be reasonable. 2. The patient is due for a 6 week post watchman device ARI on Sunday in [place]. We will expedite this test this admission to rule out effusion and assess LV function as well. Dr. Hall will be able to proceed with ARI Job ID: [id number] [facility]
--- NOTE | 2019-07-10 15:19 | PDOC.HOSPP ---
- Subjective Encounter Date: 07/10/19 Encounter Time: 08:45 Subjective: pt up in bed no complains - Objective Vital Signs & Weight: Vital Signs (12 hours) Temp Pulse Resp BP Pulse Ox 07/10/19 11:47 98.2 F 86 18 121/97 H 97 07/10/19 07:46 98.5 F 77 13 117/67 96 Weight Admit Weight 155 lb Weight 155 lb I&O: 07/09/19 07/10/19 07/11/19 06:59 06:59 06:59 Intake Total 240 Balance 240 Result Diagrams: 07/09/19 17:49 07/10/19 04:46 Additional Labs: Accuchecks 07/09/19 23:48 POC Glucose 98 Hospitalist ROS - Review of Systems Cardiovascular: denies: chest pain, palpitations, orthopnea, paroxysmal noc. dyspnea, edema, light headedness, other Gastrointestinal: denies: nausea, vomiting, abdominal pain, diarrhea, constipation, melena, hematochezia, other Genitourinary: denies: dysuria, frequency, incontinence, hematuria, retention, other - Medication Medications: Active Medications Generic Name Dose Route Start Last Admin Trade Name Freq PRN Reason Stop Dose Admin Hydrocodone Bitart/Acetaminophen 1 tab 07/09/19 22:34 07/10/19 12:45 [place] 7.5/325 PO 1 tab Q4H PRN Administration Moderate Pain (4-6) Apixaban 5 mg 07/10/19 09:00 07/10/19 08:43 Eliquis PO 5 mg BID HARISH Administration Atorvastatin Calcium 40 mg 07/10/19 09:00 07/10/19 08:44 Lipitor PO 40 mg DAILY HARISH Administration Clopidogrel Bisulfate 75 mg 07/10/19 09:00 07/10/19 08:43 Plavix PO 75 mg DAILY HARISH Administration Diltiazem HCl 180 mg 07/10/19 09:00 07/10/19 08:43 Cardizem Cd PO 180 mg DAILY HARISH Administration Furosemide 40 mg 07/10/19 06:00 07/10/19 06:27 Lasix SLOW IVP 40 mg 0600 HARISH Administration Metoprolol Succinate 25 mg 07/10/19 09:00 07/10/19 08:43 Toprol Xl PO 25 mg DAILY HARISH Administration Prednisone 10 mg 07/10/19 09:00 07/10/19 08:43 Prednisone PO 10 mg DAILY HARISH Administration Spironolactone 25 mg 07/10/19 09:00 07/10/19 08:44 Aldactone PO 25 mg BID HARISH Administration - Exam ENT - other findings: left chest wall area raised. Heart: negative: RRR, no murmur, no gallops, no rubs, normal peripheral pulses, irregular, diminshed peripheral pulses, murmur present, II/IV, III/IV Respiratory: negative: CTAB, no wheezes, no rales, no ronchi, normal chest expansion, no tachypnea, normal percussion, rales, rhonchi, tachypneic, wheezes Gastrointestinal: negative: soft, non-tender, non-distended, normal bowel sounds , no palpable masses, no hepatomegaly, no splenomegaly, no bruit, no guarding, no rigidity, tender to palpation, distended, diminished bowl sounds, voluntary guarding Extremities: negative: no cyanosis, no clubbing, no edema, 1+ LE edema, 2+ LE edema, clubbing Hosp A/P (1) Afib Code(s): I48.91 - UNSPECIFIED ATRIAL FIBRILLATION Status: Chronic (2) CAD (coronary artery disease) Code(s): I25.10 - ATHSCL HEART DISEASE OF [place] CORONARY ARTERY W/O ANG PCTRS Status: Acute (3) AICD (automatic cardioverter/defibrillator) present Code(s): Z95.810 - PRESENCE OF AUTOMATIC (IMPLANTABLE) CARDIAC DEFIBRILLATOR Status: Chronic (4) Hypertension Code(s): I10 - ESSENTIAL (PRIMARY) HYPERTENSION Status: Chronic - Plan pt had CTA which did not indicate a PE. will continue his AC. EP has been consulted. she has had a watchman but is still on AC. some streaking noted around her AICD. pt states she had a hematoma to her AICD site.
[2019-07-10 16:41] LABS: Platelet Count 379 thou/uL (130-400)
[2019-07-10 17:22] LABS: Anion Gap 20 mmol/L (10-20); BUN (Urea Nitrogen) 15 mg/dL (9.8-20.1); Calc. Creatinine Clearance 67 mL/min (70-130); Calcium 9.5 mg/dL (7.8-10.44); Carbon Dioxide 22 mmol/L (23-31); Chloride 99 mmol/L (98-107); Estimated GFR-MDRD 64; Glucose 174 mg/dL (80-115); Magnesium 1.2 mg/dL (1.6-2.6); Potassium 4.4 mmol/L (3.5-5.1); Sodium 137 mmol/L (136-145)
[2019-07-10] MEDS: Amiodarone 200 MG TAB PO SCH (20:17)
[2019-07-11] MEDS: HYDROcodone/Acetaminophen 7.5/325 mg Tablet PO PRN ×4 (03:55→16:15)
[2019-07-11 05:12] LABS: Anion Gap 15 mmol/L (10-20); BUN (Urea Nitrogen) 17 mg/dL (9.8-20.1); Calc. Creatinine Clearance 75 mL/min (70-130); Calcium 8.7 mg/dL (7.8-10.44); Carbon Dioxide 26 mmol/L (23-31); Chloride 102 mmol/L (98-107); Estimated GFR-MDRD 73; Glucose 97 mg/dL (80-115); Potassium 3.6 mmol/L (3.5-5.1); Sodium 139 mmol/L (136-145)
[2019-07-11] MEDS: Furosemide 20 MG/2 ML VIAL SLOW IVP SCH ×2 (06:04→14:29)
[2019-07-11] MEDS: Amiodarone 200 MG TAB PO SCH ×3 (08:09→18:47)
[2019-07-11] MEDS: Clopidogrel Bisulfate 75 MG TAB PO SCH (08:09)
[2019-07-11] MEDS: Atorvastatin Calcium 40 MG TAB PO SCH (08:09)
[2019-07-11] MEDS: Spironolactone 25 MG TAB PO SCH (08:09)
[2019-07-11] MEDS: predniSONE 20 MG TAB PO SCH (08:09)
[2019-07-11] MEDS: Apixaban 5 MG TAB PO SCH (08:09)
[2019-07-11] MEDS ORDERED: Potassium Chloride 20 MEQ TAB PO SCH (10:30)
--- NOTE | 2019-07-11 10:38 | PRG ---
DATE OF SERVICE: 07/11/2019 SUBJECTIVE: Ms. Humphreys is breathing better. She did not respond much to the 20 mg of Lasix IV this morning. Her breathing appears normal. OBJECTIVE: VITAL SIGNS: Blood pressure 118/61, pulse 76. LUNGS: Clear. CARDIAC: Normal S1 and S2. ABDOMEN: Soft, nontender. Potassium is 3.6. ASSESSMENT: 1. Diastolic heart failure, improved. 2. Atrial arrhythmias, improved on amiodarone. PLAN: 1. Reduce diltiazem down to 120 mg a day starting tomorrow. 2. In view of her being on the amiodarone, we will stop metoprolol. She does have severe reactive airway disease. Hopefully, we will not have to use amiodarone very long in view of her lung troubles. Job ID: [id number]
--- NOTE | 2019-07-11 11:24 | OP ---
DATE OF PROCEDURE: 07/10/2019 PROCEDURE PERFORMED: Transesophageal echocardiogram. INDICATION: A 69-year-old woman with paroxysmal atrial fibrillation. DESCRIPTION OF PROCEDURE: The patient was taken to the PACU. The patient was sedated by Anesthesiology. A transesophageal probe was placed into the distal esophagus and stomach. Echocardiographic images were obtained. The transesophageal probe was removed. FINDINGS: 1. Normal left ventricular systolic function. 2. Left atrial enlargement. 3. There is asymmetric septal hypertrophy. 4. Prosthetic mitral valve. 5. Mild mitral regurgitation. 6. Mild tricuspid regurgitation. 7. Pacemaker wires noted in the right ventricle. 8. The Watchman device has 3 separate small 0.1 cm leaks noted with no thrombus noted behind the device. 9. Patent foramen ovale. 10. Very small pericardial effusion. IMPRESSION: Watchman device with 3 small leaks noted with no thrombus behind the device. Job ID: [id number]
--- NOTE | 2019-07-11 11:44 | PDOC.EP ---
- Subjective Date: 07/11/19 Time: 11:39 Interval History: follow up for atrial flutter. s/p ARI on 07/10/2019. Feels well but continues to have abdominal pain, worse when sitting upright and reproducible with contact. - Review of Systems Constitutional: reports: weakness. denies: chills, fever, malaise Respiratory: reports: shortness of breath, SOB with excertion. denies: cough, dry, hemoptysis, sputum, wheezing Cardiology: reports: orthopnea, paroxysmal noc. dyspnea. denies: chest pain, edema, heart racing, light headedness Gastrointestinal: reports: abdominal pain. denies: constipation, diarrhea, nausea, vomitting Musculoskeletal: denies: unstable gait, falls - Objective Allergies/Adverse Reactions: Allergies Allergy/AdvReac Type Severity Reaction Status Date / Time aspirin Allergy Severe Anaphylaxis Verified 01/05/19 01:24 NSAIDS (Non-Steroidal Allergy Severe Anaphylaxis Verified 01/05/19 01:24 Anti-Inflamma Current Medications Acetaminophen (Tylenol) 650 mg PO Q4H PRN PRN Reason: Headache/Fever/Mild Pain (1-3) Hydrocodone Bitart/Acetaminophen ([place] 7.5/325) 1 tab PO Q4H PRN PRN Reason: Moderate Pain (4-6) Last Admin: 07/11/19 08:08 Dose: 1 tab Albuterol/Ipratropium (Duoneb) 3 ml NEB Q4H PRN PRN Reason: Dyspnea/Wheezing/SOB Amiodarone HCl (Cordarone) 400 mg PO BID [facility] Last Admin: 07/11/19 08:09 Dose: 400 mg Apixaban (Eliquis) 5 mg PO BID [facility] Last Admin: 07/11/19 08:09 Dose: 5 mg Atorvastatin Calcium (Lipitor) 40 mg PO DAILY [facility] Last Admin: 07/11/19 08:09 Dose: 40 mg Clopidogrel Bisulfate (Plavix) 75 mg PO DAILY [facility] Last Admin: 07/11/19 08:09 Dose: 75 mg Diltiazem HCl (Cardizem Cd) 120 mg PO DAILY [facility] Docusate Sodium (Colace) 100 mg PO BIDPRN PRN PRN Reason: Constipation Furosemide (Lasix) 20 mg SLOW IVP 0600,1400 [facility] Last Admin: 07/11/19 06:04 Dose: 20 mg Potassium Chloride (K-Dur) 40 meq PO NOW [facility] Stop: 07/11/19 12:30 Prednisone (Prednisone) 10 mg PO DAILY [facility] Last Admin: 07/11/19 08:09 Dose: 10 mg Spironolactone (Aldactone) 25 mg PO BID [facility] Last Admin: 07/11/19 08:09 Dose: 25 mg Vital Signs & Weight: Vital Signs Temp Pulse Resp BP Pulse Ox 07/11/19 07:25 98.6 F 76 16 118/61 97 07/11/19 03:55 97.9 F 77 14 124/58 L 98 Admit Weight 155 lb Weight 156 lb 8 oz I/O: I/O 07/10/19 07/11/19 07/12/19 06:59 06:59 06:59 Intake Total 240 1800 240 Output Total 1375 Balance 240 425 240 - Quality Measures Condition: Atrial Fibrillation/Flutter (hx or current) CV meds: Eliquis: Yes (s/p watchman 6 weeks ago) - Physical Exam General: alert & oriented x3, appears well, no apparent distress, speech clear, affect appropriate HEENT: mucus membranes moist, normocephaly Neck: supple neck, midline trachea, no JVD/HJR, no masses, no bruit, no lymphadenopathy, no thromegaly Cardiology: regular rate and rhythm, PMI nondisplaced. negative: PMI Lungs: clear to auscultation, no wheeze, rales, rhonchi Neurology: cranial nerve 2-12 intact, grossly intact, no lateralizing findings Abdomen: soft, no hepatosplenomegaly, tender Extremities: dry, strong pulses, warm, + edema B - Chadsvasc Risk factors Congestive heart failure: 1 Age 65-74: 1 Female: 1 Risk Score: 3 - Labs Result Diagrams: 07/10/19 16:27 07/11/19 04:31 - EKG Interpretation EKG shows: Sinus rhythm - Device Device: dual, defibrillator Device Result: [employer] - Assessment/Plan Assessment/Plan: 1. Atrial arrhythmias - started on amiodarone taper. Will continue until 3 months post ablation then DC. - recent NEO 6 weeks ago 2. Left atrial appendage closure - Watchman placed 6 weeks ago. 3 small leaks seen by ARI. Will remain on Eliquis for now. Anticipate repeat ARI in 6 weeks. 3. CHF - feeling better after IV lasix. Had been off of home PO lasix prior. 4. ICD - nml function after lead revision 6 weeks ago 5. Abd pain - possibly r/t fluid retention but defer to hospitalist if further imaging/ evaluation is desired. Limited antiarrhythmic options. Cannot to class 1c with HF and CAD. Would avoid sotalol with asthma. Cannot use multaq with decompensated HF. Tikosyn is an option, however there is a national shortage with both name brand and generic and is not reliably available. I plan continuing amiodarone x 6-8 weeks to allow her to recover from this HF exacerbation and her recent ablation. See taper below. OK for DC by EP. Amiodarone taper: paper prescription in chart 200mg PO TID x 7 days 200mg PO BID x 7 days 200mg PO Daily thereafter
[2019-07-11 13:34] VITALS: BMI 26.9
[2019-07-11] MEDS ORDERED: Iopamidol-370 76% 500 ML 1 ML ONE (15:26)
[2019-07-11 15:42] VITALS: BP 119/78; TEMP 97.5
--- NOTE | 2019-07-11 18:24 | CT ---
CT ABDOMEN AND PELVIS WITH CONTRAST: 07/11/19 HISTORY: Abdominal pain. COMPARISON: CT abdomen and pelvis 02/16/18. FINDINGS: Lung bases appear relatively clear. Cyst in hepatic segment II. No gallbladder is appreciated. The spleen is unremarkable. Aortic contour is nonaneurysmal although is mildly tortuous. There is extensive diverticular disease of the sigmoid colon without active current inflammatory [place] ge. The appendix is felt to be visualized and appears normal. There is asymmetric inflammatory stranding on the left kidney. No evidence of peritoneal or periaortic adenopathy. The pancreas is mildly atrophied. The renal veins are patent. The renal arteries are patent. High grade degenerative disease of the facet joints lower lumbar spine with grade II L5 over S1 anter olisthesis. IMPRESSION: 1. Asymmetric left sided perinephric stranding was seen back in 2018. This could be sequela of a ruptured inferior left renal cyst as it is decreased in size and partially collapsed relative to the 2018 exam. Given the normal enhancement, pyelonephritis is felt less likely. 2. Mild diverticular disease sigmoid colon without active current inflammation. 3. No other acute inflammatory process in abdomen or pelvis. 4. Grade II L5 over S1 anterolisthesis due to severe facet arthrosis. POS: HOME
--- NOTE | 2019-07-14 09:27 | DIS ---
DATE OF ADMISSION: 07/09/2019 DATE OF DISCHARGE: 07/11/2019 DISCHARGE DIAGNOSES: 1. Paroxysmal atrial fibrillation with rapid ventricular response. 2. Acute on chronic diastolic congestive heart failure exacerbation. 3. History of hypertrophic obstructive cardiomyopathy. 4. History of AICD placement. 5. Chronic obstructive airway disease. 6. Coronary artery disease. 7. Hypertension. 8. Diabetes mellitus. 9. Hyperlipidemia. 10. Chronic pain. PHYSICAL EXAMINATION: VITAL SIGNS: On discharge; blood pressure 119/78, temperature 97.5, pulse 75, respirations 16, oxygen saturation 95%. GENERAL: The patient is alert, awake, oriented, in no distress. CHEST: Normal vesicular breathing. HEART: Sounds normal. ABDOMEN: Soft. Negative rebound or guarding. EXTREMITIES: Negative edema of feet. LABORATORY DATA: On admission, CBC unremarkable except white blood cell 14.6. INR 1.5. BMP on 07/11/2019, unremarkable. Magnesium on admission 1.2. HOSPITAL SUMMARY: The patient, Katalina Humphreys, was admitted with shortness of breath and atrial fibrillation with RVR. The patient was evaluated by Cardiology and assistant professor of economics. The patient loaded with amiodarone and Electrophysiology and Cardiology recommended to discharge home on the patient with amiodarone and Cardizem and Cardizem dose was decreased and metoprolol was discontinued. Advised to continue anticoagulation. The patient also was performed CAT scan of abdomen for lower chest, abdominal area pain, which was negative for acute finding. The patient clinically was stable and discharged home. Advised to follow up outpatient with PCP, assistant professor of economics and Cardiology. The patient discharged in a stable condition. Job ID: [id number]
[2019-07-18] MEDS ORDERED: Amiodarone 200 MG TAB PO SCH (09:00)
[2019-07-25] MEDS ORDERED: Amiodarone 200 MG TAB PO SCH (09:00)
== END 2019-07-11 19:00 | disposition home or self-care (01) ==
LOC: ERS 17:30 → 2SW 21:07
PROVIDERS: ADMIT Hospitalist; ATTEND Hospitalist
PROC: B24BZZ4 Ultrasonography of Heart with Aorta, Transesophageal (ICD-10-PCS; principal; 2019-07-10)
DX: I48.0 Paroxysmal atrial fibrillation (principal); Q21.1 Atrial septal defect; I08.1 Rheumatic disorders of both mitral and tricuspid valves; I13.0 Hypertensive heart and chronic kidney disease with heart failure and stage 1 through stage 4 chronic kidney disease, or unspecified chronic kidney disease; E11.22 Type 2 diabetes mellitus with diabetic chronic kidney disease; N18.9 Chronic kidney disease, unspecified; I50.33 Acute on chronic diastolic (congestive) heart failure; I42.2 Other hypertrophic cardiomyopathy; J44.9 Chronic obstructive pulmonary disease, unspecified; I25.10 Atherosclerotic heart disease of native coronary artery without angina pectoris; K21.9 Gastro-esophageal reflux disease without esophagitis; E78.5 Hyperlipidemia, unspecified; E78.00 Pure hypercholesterolemia, unspecified; M79.7 Fibromyalgia; E87.70 Fluid overload, unspecified; I48.92 Unspecified atrial flutter; K57.30 Diverticulosis of large intestine without perforation or abscess without bleeding; M47.817 Spondylosis without myelopathy or radiculopathy, lumbosacral region; Z79.01 Long term (current) use of anticoagulants; Z79.84 Long term (current) use of oral hypoglycemic drugs; Z79.899 Other long term (current) drug therapy; Z88.6 Allergy status to analgesic agent; Z88.8 Allergy status to other drugs, medicaments and biological substances; Z95.1 Presence of aortocoronary bypass graft; Z95.2 Presence of prosthetic heart valve; Z95.810 Presence of automatic (implantable) cardiac defibrillator; Z95.818 Presence of other cardiac implants and grafts; Z98.890 Other specified postprocedural states
CPT/HCPCS: 71045; 71275; 74177; 80048 ×3; 80053; 82565; 82962; 83605; 83735; 83880; 84484 ×3; 85014; 85018; 85025; 85049; 85379; 85610; 85730; 87040; 93005 ×3; 93312; 96374; 96375 ×2; 96376; 99285; G0378 ×3; 36415; 36416; 81003; 81015; 93010; J0696; J1940; J2270; J2704; J7512; Q9967

== ENCOUNTER 2019-11-27 07:49 | Outpatient (CLI) | payer MEDICARE ==
[2019-11-27 08:33] LABS: Anion Gap 11 mmol/L (10-20); BUN (Urea Nitrogen) 10 mg/dL (9.8-20.1); Calc. Creatinine Clearance 0 mL/min (70-130); Calcium 9.5 mg/dL (7.8-10.44); Carbon Dioxide 33 mmol/L (23-31); Chloride 99 mmol/L (98-107); Estimated GFR-MDRD 55; Glucose 111 mg/dL (80-115); Sodium 139 mmol/L (136-145)
--- NOTE | 2019-11-27 09:50 | CT ---
Exam: CT angiogram of the chest HISTORY: Watchman device placement. Evaluate for occlusion. COMPARISON: 07/09/2019 TECHNIQUE: CT angiogram of the chest is performed in the axial plane. Three-dimensional reformatted i mages are submitted for interpretation FINDINGS: Mediastinum: Visualized mediastinum does not demonstrate mass, lymphadenopathy or hematoma. HEART: Evidence of previous CABG. Normal heart size. No significant pericardial fluid Aorta: No aneurysm or dissection Upper solid abdominal viscera: No acute abnormality. Hypodensity in the left hepatic lobe has an atte nuation coefficient of 19 Hounsfield units, compatible with a benign hepatic cyst. Trachea and central bronchi: Patent Pleural spaces: No effusion Lung parenchyma: There is evidence of scarring or atelectasis in the middle lobe. Additional minimal scarring and atelectasis in the lingula. Pneumothorax: None Osseous structures: No lytic or blastic lesions in the osseous structures. Remote compression fractur e in the mid thoracic spine with associated kyphosis. Pulmonary arteries:Adequate contrast opacification of the pulmonary nodules system to the level of th e segmental arteries. No filling defect to suggest thromboembolism Watchman device: There is a watchman device in the left atrial appendage. This contrast beyond the wa tchman device suggesting patency/flow into the left atrial appendage. No evidence of occlusion. IMPRESSION: 1. Patent left atrial appendage despite the presence of a watchman device. Contrast opacifies the lef t atrial appendage.
[2019-11-27] MEDS ORDERED: Iopamidol 370 76% 100 ML VIAL ONE (11:18)
== END 2019-11-27 07:50 | disposition home or self-care (01) ==
LOC: CT 07:49
PROVIDERS: ATTEND Internal Medicine Cardiovascular Disease
DX: I48.91 Unspecified atrial fibrillation (principal); R06.02 Shortness of breath
CPT/HCPCS: 36415; 71275; 80048; Q9967

== ENCOUNTER 2020-03-17 09:31 | Inpatient (IN) | payer MEDICARE, OTHER ==
[2020-03-17 10:56] LABS: #Eosinphils 0.1 thou/uL (0.0-0.7); #Monocytes 0.6 thou/uL (0.11-0.59); #Neutrophils 13.5 thou/uL (1.40-6.50); %Basophils 0.1 % (0.0-1.0); %Eosinophils 0.5 % (0.0-10.0); %Lymphocytes 6.5 % (21.0-51.0); %Monocytes 4.2 % (0.0-10.0); %Neutrophils 88.8 % (42.0-75.0); Hemoglobin 9.8 g/dL (12.0-16.0); Mean Corpuscular HGB CONC 32.1 g/dL (32.0-36.0); Mean Corpuscular Hemoglobin 27.6 pg (27.0-31.0); Mean Platelet Volume 7.1 fL (7.4-10.4); Platelet Count 385 thou/uL (130-400); RBC Distribution Width 14.4 % (11.5-14.5); Red Blood Cell (RBC) Count 3.55 mill/uL (4.20-5.40); White Blood Cell (WBC) Count 15.2 thou/uL (4.8-10.8)
[2020-03-17 11:27] LABS: Troponin I Less than 0.010 ng/mL (< 0.028)
[2020-03-17 11:30] LABS: INR-International Normal Ratio 1.5
[2020-03-17 11:31] LABS: ALT (SGPT) 10 U/L (8-55); AST (SGOT) 14 U/L (5-34); Alkaline Phosphatase 86 U/L (40-110); Anion Gap 18 mmol/L (10-20); BUN (Urea Nitrogen) 16 mg/dL (9.8-20.1); Bilirubin, Total 0.4 mg/dL (0.2-1.2); Calc. Creatinine Clearance 0 mL/min (70-130); Carbon Dioxide 25 mmol/L (23-31); Chloride 99 mmol/L (98-107); Estimated GFR-MDRD 54; Glucose 123 mg/dL (80-115); Lipase 12 U/L (8-78); Potassium 3.5 mmol/L (3.5-5.1); Sodium 138 mmol/L (136-145)
--- NOTE | 2020-03-17 12:14 | CT ---
CT Abdomen Pelvis W Con HISTORY: Diffuse abdominal pain with black stools COMPARISON: 07/11/2019, 02/16/2018 FINDINGS: The lung bases are unremarkable. Cyst in the left lobe of the liver, segment 2 is stable. The spleen, adrenal glands and right kidney are normal. Atrophic changes in the pancreas is stable. Asymmetrically left-sided perinephric stranding has been stable since 2018, likely sequela of previou sly ruptured cyst. The left kidney is otherwise unremarkable. No free air, free fluid or lymphadenopathy seen in the abdomen or pelvis. There are vascular calcific ations without evidence of aneurysmal dilatation of the abdominal aorta. Degenerative changes in the lower lumbar spine and grade 2 anterolisthesis of L5 over S1 are again noted. The small bowel loops are not abnormally dilated. There is colonic diverticulosis. No evidence of div erticulitis is seen. No abnormally loculated fluid collection is noted to suggest abscess formation. Uterus is present with a calcified fibroid. IMPRESSION: 1. Colonic diverticulosis without diverticulitis. 2. Essentially stable exam since 07/11/2019
[2020-03-17 13:18] LABS: Lactic Acid 0.9 mmol/L (0.5-2.2)
--- NOTE | 2020-03-17 13:32 | PDOC.HHP ---
Hospitalist HPI - History of Present Illness Generalized weakness, malaise History of Present Illness: PCP: Dr. Lord The patient is a 6-year-old female with a past medical history significant for anemia, atrial fibrillation, anticoagulated on Eliquis, cardiomyopathy with AICD that presents to the ER for the above complaint. The patient reports having generalized weakness, fatigue and low energy for the past several days. She has a history of anemia. She reports that her hemoglobin averages 13, however, last week she had a reported hemoglobin of 8. Her washhouse worker, Dr. Betancur, recommended that she call our oncology department, to get help with her anemia. The patient reports that she was scheduled to see Dede Rivera and receive iron infusion today, however, she came to the ER because she had black stool for the last several days along with general weakness and malaise. She reports ariana ginally that she developed black stools 3 weeks ago, however, it stopped after 1 day. Then 2 to 3 days ago, she had multiple dark stools. She reports some associated abdominal cramping, generalized, intermittent, exacerbated and relieved by nothing. She is on chronic prednisone for missed diagnoses of asthma as a child. She does not take any NSAIDs or aspirin and does not have a family history of any coagulopathy. She does not have cirrhosis. She denies any nausea or vomiting. She reports that she does take an iron pill daily, however, her stools are never that dark. Her last colonoscopy was approximately 13 years ago. Her outbound telemarketing representative is Dr. Suárez. She denies any chest pain, heart palpitations or swelling to her lower extremities. Denies any cough, wheezing, shortness of breath. Denies any recent fever or chills. She has no other complaints at this time. ED Course: VITAL SIGNS SunMar 17, 2020 09:32 ALEX Ratliff Lauren BP: 123/70, Pulse: 83, Resp: 16, Temp: 98.4 (Oral), Pain: 6, O2 sat: 96 on (Room Air), Time: 03/17/2020 09:32. VITAL SIGNS SunMar 17, 2020 10:45 ALEX Rey Kelsey BP: 126/70, Pulse: 70, Resp: 19, Pain: 6, O2 sat: 96 on (Room Air), Time: 03/17/2020 10:45. VITAL SIGNS SunMar 17, 2020 12:16 ALEX Rey Kelsey BP: 141/77, Pulse: 75, Resp: 19, O2 sat: 97 on (Room Air), Time: 03/17/2020 12:16. VITAL SIGNS SunMar 17, 2020 12:59 ALEX Rey Kelsey BP: 120/66, Pulse: 70, Resp: 16, Temp: 98.4 (Oral), Pain: 0 SLEEPING, O2 sat: 97 on (Room Air), Time: 03/17/2020 12:59. Medication administration: None Hospitalist ROS - Review of Systems Constitutional: denies: fever, chills Respiratory: denies: cough, shortness of breath, hemoptysis Cardiovascular: reports: light headedness. denies: chest pain, palpitations, edema Gastrointestinal: reports: abdominal pain (Generalized cramping), melena. denies: nausea, vomiting, diarrhea, constipation, hematochezia Genitourinary: denies: dysuria, frequency, hematuria All other systems reviewed; all pertinent +/- noted in HPI/Subj - Medication Medications: Lasix oral SunMar 17, 2020 10:39 ALEX Rey Kelsey TABLET : Strength - 40 mg : ORAL Patient Dose: once a day PRN. NEEDED. atorvastatin SunMar 17, 2020 10:39 ALEX Rey Kelsey TABLET : Strength - 40 mg : ORAL Patient Dose: 40 mg Oral once a day (at bedtime). Xopenex SunMar 17, 2020 10:39 ALEX Rey Kelsey VIAL, NEBULIZER (ML) : Strength - 1.25 mg/3 mL : INHALATION Patient Dose: 1 sanju Nebulize As Needed. Proventil aerosol inhaler SunMar 17, 2020 10:39 ALEX Rey Kelsey AEROSOL (GRAM) : Strength - 90 mcg : INHALATION Patient Dose: 1-2 puff(s) Inhaler As Needed. predniSONE SunMar 17, 2020 10:39 ALEX Rey Kelsey tablet : Strength - 20 mg : ORAL Patient Dose: 2 times a day. Eliquis SunMar 17, 2020 10:39 ALEX Rey Kelsey tablet : Strength - 5 mg : ORAL Patient Dose: 2 times a day. metoprolol succinate SunMar 17, 2020 10:39 ALEX Rey Kelsey tablet extended release 24 hr : Strength - 25 mg : ORAL Patient Dose: 0.5 tab(s) once a day. HYDROcodone-acetaminophen SunMar 17, 2020 10:39 ALEX Rey Kelsey tablet : Strength - 7.5 mg-325 mg : ORAL Patient Dose: every 4 hours prn. potassium chloride oral SunMar 17, 2020 10:39 ALEX Rey Kelsey tablet,ER particles/crystals : Strength - 10 mEq : ORAL Patient Dose: once a day. amiodarone oral SunMar 17, 2020 10:40 ALEX Rey Kelsey tablet : Strength - 200 mg : ORAL Patient Dose: 1 tab(s) once a day Allergies: aspirin (bulk), aspirin (Unconfirmed), NSAIDS (Non-Steroidal Anti- Inflammatory Drug), NSAIDS (Non-Steroidal Anti-Inflamma (Unconfirmed) Hospitalist History - Past Medical History Source: patient, RN notes reviewed Other Medical History: MEDICAL HISTORY Notes: PREDNISONE DEPENDENT X 35 YEARS FOR MISDIAGNOSIS OF ASTHMA,, cardiomyopathy, Treated with a pacemaker, treated with an AICD, diabetes, Type II, GERD, RUPTURED LEFT KIDNEY, CYST AND HEMATOMA ON LEFT KIDNEY, hyperlipidemia, high cholesterol, currently being treated, hypertension, which has been treated, fibromyalgia. neck and back pain. FEMALE SURGICAL HISTORY Surgical history of CABG, two vessels, cholecystectomy, Date of surgery 1972, tubal ligation, Date of surgery 1981, MULTIPLE NASAL SURGERIES, RENAL CYST REMOVAL., WATCHMAN ON 05/27/19. PSYCHIATRIC HISTORY No previous psychiatric history. SOCIAL HISTORY Patient denies alcohol use, Patient denies drug use, Patient has no smoking history. FAMILY HISTORY: Noncontributory to this case. - Exam General Appearance: NAD, awake alert Eye: anicteric sclera ENT: normocephalic atraumatic Neck: supple, symmetric Heart: no murmur, no gallops, no rubs, normal peripheral pulses, irregular Respiratory: CTAB, no wheezes, no rales, no ronchi, normal chest expansion, no tachypnea Gastrointestinal: soft, no bruit, no guarding, no rigidity, distended (Mild to moderate), diminished bowl sounds Extremities: no cyanosis, no edema Skin: no rashes Neurological: normal sensation to touch, no weakness, no focal deficits Musculoskeletal: normal tone, normal strength Psychiatric: normal affect, A&O x 3 Hospitalist Results - Labs Result Diagrams: 03/17/20 10:39 03/17/20 10:39 Lab results: WBC 15.2 thou/uL (4.8-10.8) H 03/17/20 10:39 Hgb 9.8 g/dL (12.0-16.0) L 03/17/20 10:39 Hct 30.6 % (36.0-47.0) L 03/17/20 10:39 MCV 86.0 fL (78.0-98.0) 03/17/20 10:39 Plt Count 385 thou/uL (130-400) 03/17/20 10:39 Neutrophils % 88.8 % (42.0-75.0) H 03/17/20 10:39 Sodium 138 mmol/L (136-145) 03/17/20 10:39 Potassium 3.5 mmol/L (3.5-5.1) 03/17/20 10:39 Chloride 99 mmol/L (98-107) 03/17/20 10:39 Carbon Dioxide 25 mmol/L (23-31) 03/17/20 10:39 BUN 16 mg/dL (9.8-20.1) 03/17/20 10:39 Creatinine 1.02 mg/dL (0.6-1.1) 03/17/20 10:39 Glucose 123 mg/dL (80-115) H 03/17/20 10:39 Lactic Acid 0.9 mmol/L (0.5-2.2) 03/17/20 12:27 Calcium 9.0 mg/dL (7.8-10.44) 03/17/20 10:39 Total Bilirubin 0.4 mg/dL (0.2-1.2) 03/17/20 10:39 AST 14 U/L (5-34) 03/17/20 10:39 ALT 10 U/L (8-55) 03/17/20 10:39 Alkaline Phosphatase 86 U/L (40-110) 03/17/20 10:39 Troponin I Less than 0.010 ng/mL (< 0.028) 03/17/20 10:39 Serum Total Protein 6.0 g/dL (6.0-8.3) 03/17/20 10:39 Albumin 4.0 g/dL (3.4-4.8) 03/17/20 10:39 Lipase 12 U/L (8-78) 03/17/20 10:39 - EKG Interpretation EKG: Paced rhythmby my review - Radiology Interpretation CT scan - abdomen Status: report reviewed by me Additional Comment: Diverticulosis without diverticulitis. Chest x-ray Status: image reviewed by me Additional Comment: Negative for infiltrate Hospitalist H&P A/P - Problem (1) Symptomatic anemia Code(s): D64.9 - ANEMIA, UNSPECIFIED Status: Acute (2) General weakness Code(s): R53.1 - WEAKNESS Status: Acute (3) Chronic use of steroids Code(s): OCJ1596 - Status: Chronic (4) Hypomagnesemia Code(s): E83.42 - HYPOMAGNESEMIA Status: Acute (5) Chronic a-fib Code(s): I48.20 - CHRONIC ATRIAL FIBRILLATION, UNSPECIFIED Status: Chronic (6) DM2 (diabetes mellitus, type 2) Status: Chronic (7) Cardiomyopathy with implantable cardioverter-defibrillator Code(s): I42.9 - CARDIOMYOPATHY, UNSPECIFIED; Z95.810 - PRESENCE OF AUTOMATIC (IMPLANTABLE) CARDIAC DEFIBRILLATOR Status: Acute - Plan Plan: 69/F PMH chronic anemia, atrial fibrillation (Eliquis), chronic steroids presents for generalized weakness, fatigue and dark stools. Admit to medical floor, observation status. Expected length of stay less than 2 midnights. #Symptomatic anemia Presented stable blood pressure, stable pulse, stable respirations, afebrile. Reports abdominal cramping after eating. Takes chronic steroids. CT abdomen positive diverticulosis, no diverticulitis. Hemoglobin 9.8, hematocrit 30.6 (baseline reported 14) PT 18, INR 1.5, FOBT pending (takes iron pill) Was scheduled with oncology for iron infusion today. Track H&H, type and screen, check iron studies, TSH, UA. Obtain orthostatic vital signs Consult Dr. Suárez. PPI scheduled. #Generalized weakness No motor focal deficits. Likely related to problem #1. #Chronic use of steroids Patient takes prednisone 20 mg daily due to missed diagnoses as an asthmatic. #Hypomagnesia Presented with a magnesium level 1.5. We will transfuse 2 g magnesium. #Chronic A. fib Rate controlled. Takes Eliquis daily. History watchman's procedure (05/20). Had watchman revision (01/18), unsuccessful due to bleeding. Hold Eliquis and Plavix. Restart home dose of amiodarone, Cardizem. #DM2 Takes metformin. Hold metformin. Mild ISS and AC/at bedtime. #Cardiomyopathy with implantable cardio defibrillator Appears stable. Denies chest pain or swelling to lower extremities. Initial troponin negative, BNP 316.4. Will delta troponin. Order chest x-ray. Restart home dose of Lasix, Spironolactone. SCDs for DVT prophylaxis. No pharmacological prophylaxis. Protonix for GI prophylaxis. Full code. MPO is Molly Hendrix (daughter) at [phone]. Discussed case with Dr. Carvalho. Addendum - Attending - Attending Attestation Date/Time: 03/17/20 [id number] Patient is a 69-year-old female with atrial fibrillation on anticoagulation and coronary artery disease presented to the emergency room with generalized weakness and fatigue. Her work-up was consistent with symptomatic anemia with hemoglobin of 9.7. She also complained of intermittent melena. No nausea, vomiting, abdominal pain or weight loss reported. Her hemoglobin normally runs between 12-13. Recently she was found to have hemoglobin around 8. Plavix was discontinued last week by cardiology. Last dose of Eliquis 5 mg was this morning. Past medical history, vital signs were reviewed. On examination lungs were clear to auscultation bilaterally. Heart S1-S2 present. Abdomen was soft nontender bowel sounds present. Chest x-ray by my review was negative for infiltrate. CT scan of the abdomen was negative for acute findings. We will start her on iron supplementation due to iron deficiency. Replace magnesium. Check orthostatic vitals in a.m. Patient is scheduled for EGD in a.m. IV Protonix has been started. Plan was discussed with the patient and her daughter at the bedside. I personally evaluated the patient and discussed the management with nurse practitioner. I agree with the History, Examination, Assessment and Plan documented above with any addition or exceptions noted below.
[2020-03-17] MEDS ORDERED: Acetaminophen 325 MG TAB PO PRN (14:04)
[2020-03-17 14:09] VITALS: BMI 26.6
[2020-03-17 14:50] LABS: Reticulocyte Count 3.4 % (0.5-1.5)
[2020-03-17 14:55] LABS: Bilirubin Negative (Negative); Blood, Urine Negative (Negative); Clarity Clear (Clear); Glucose, Urine (Dipstick) Normal (Negative); Ketone, Urine Negative (Negative); Leukocyte Negative Leu/uL (Negative); Nitrite Negative (Negative); Protein, Urine (Dipstick) Negative (Neg-Trace); Urobilinogen Normal mg/dL (Less than 2); pH, Urine 8.5 (5.0-9.0)
--- NOTE | 2020-03-17 15:06 | RAD ---
EXAM: Chest 2 views: HISTORY: Shortness of breath COMPARISON: 07/09/2019 FINDINGS: There is an enlarged but stable cardiomediastinal silhouette. The patient is status post sternotomy. The pacemaker is unchanged in position. There is no evidence of consolidation, mass, or pleural effusion. No acute osseous abnormality. IMPRESSION: Stable cardiomegaly
[2020-03-17] MEDS ORDERED: Calcium Carbonate 500 MG ChewTAB PO PRN (15:11)
[2020-03-17] MEDS ORDERED: Electrolyte Replacement Protoc 1 EACH EACH IVPB PRN (15:14)
[2020-03-17] MEDS ORDERED: Furosemide 20 MG TAB PO PRN (15:15)
[2020-03-17] MEDS ORDERED: Pantoprazole 40 MG VIAL IVP SCH (15:15)
[2020-03-17] MEDS ORDERED: LEVALBUTEROL TARTRATE AD INH PRN (15:15)
[2020-03-17] MEDS ORDERED: Potassium Chloride 10 MEQ TAB PO PRN (15:15)
[2020-03-17] MEDS ORDERED: Non-Formulary Item 1 EACH (Ventolin Hfa Inhaler [Ventolin Hfa Inhaler] 60 PUFF Inh) INH PRN (15:15)
[2020-03-17 15:17] LABS: Magnesium 1.5 mg/dL (1.6-2.6)
[2020-03-17 15:18] LABS: Iron 22 ug/dL (50-170); Iron Binding Capacity, Total 371 mcg/dL (265-497)
[2020-03-17] MEDS ORDERED: Iopamidol-370 76% 500 ML 1 ML ONE (15:20)
[2020-03-17 15:28] LABS: Ferritin 36.15 ng/mL (10-291); Thyroid Stimulating Hormone 0.6682 uIU/mL (0.35-4.94)
[2020-03-17] MEDS ORDERED: Iron Sucrose Complex 200 MG in Sodium Chloride 0.9% 100 ML IVPB SCH (15:30)
[2020-03-17] MEDS ORDERED: Electrolyte Replacement Protocol FS PRN (15:30)
[2020-03-17] MEDS ORDERED: Magnesium 2 GM/50 ML 2 GM in Sodium Chloride 0.9% 100 ML IVPB SCH (15:45)
[2020-03-17] MEDS ORDERED: HumaLOG 300 UNITS/3 ML VIAL SC PRN (15:48)
[2020-03-17] MEDS ORDERED: Dextrose 50% Abboject 50 ML SYRINGE SLOW IVP PRN (15:48)
[2020-03-17] MEDS ORDERED: Dextrose 5% in Water 1,000 ML IV PRN (15:48)
[2020-03-17] MEDS: Iron, Sodium Ferric Gluconate 250 MG in Sodium Chloride 0.9% 100 ML IVPB SCH (16:35)
[2020-03-17] MEDS: HYDROcodone/Acetaminophen 7.5/325 mg Tablet PO PRN ×2 (16:35→19:48)
[2020-03-17] MEDS: HumaLOG 300 UNITS/3 ML VIAL SC PRN (17:02)
--- NOTE | 2020-03-17 18:02 | PDOC.BPN ---
- Brief Progress Note Encounter Date: 03/17/20 Encounter Time: 17:59 Patient is a 69-year-old female with atrial fibrillation on anticoagulation and coronary artery disease presented to the emergency room with generalized weakness and fatigue. Her work-up was consistent with symptomatic anemia with hemoglobin of 9.7. She also complained of intermittent melena. No nausea, vomiting, abdominal pain or weight loss reported. Her hemoglobin normally runs between 12-13. Recently she was found to have hemoglobin around 8. Plavix was discontinued last week by cardiology. Last dose of Eliquis 5 mg was this morning. Past medical history, vital signs were reviewed. On examination lungs were clear to auscultation bilaterally. Heart S1-S2 present. Abdomen was soft nontender bowel sounds present. Chest x-ray by my review was negative for infiltrate. CT scan of the abdomen was negative for acute findings. We will start her on iron supplementation due to iron deficiency. Replace magnesium. Check orthostatic vitals in a.m. Patient is scheduled for EGD in a.m. IV Protonix has been started. Plan was discussed with the patient and her daughter at the bedside.
[2020-03-17] MEDS: Atorvastatin Calcium 40 MG TAB PO SCH (19:48)
[2020-03-17] MEDS: Cyanocobalamin (Vitamin B-12) 1,000 MCG TAB PO SCH (19:48)
[2020-03-17] MEDS: Folic Acid 1 MG TAB PO SCH (19:48)
[2020-03-17] MEDS: Multivit, Therapeutic 1 TAB PO SCH (19:48)
[2020-03-17] MEDS: Pantoprazole 40 MG VIAL IVP SCH (19:49)
--- NOTE | 2020-03-17 20:13 | CON ---
DATE OF CONSULTATION: 03/17/2020 REASON FOR CONSULTATION: Anemia and history of black stool. HISTORY OF PRESENT ILLNESS: Ms. Humphreys is a 69-year-old female, who presented to the ER today complaining of having fatigue and low energy. She has a history of cardiomyopathy with AICD placement in addition to atrial fibrillation, for which she underwent a Watchman procedure in May of last year. Reportedly, she was rehospitalized in [place] in December for some revision procedure through the Watchman involving coiling of blood vessels. Reportedly, she had excessive bleeding at that time. She spent 10 days in the hospital in [place] and reportedly was discharged home with a hemoglobin of 13. It is not known whether she had any blood transfusion or not. However, she has been on iron therapy since that time. The patient has been on Coumadin and Plavix all this time. The Plavix was discontinued one week ago. The patient's blood count has been closely monitored by Dr. Abdi. Reportedly last week, her hemoglobin dropped to 8 and referral for the Oncology for intravenous iron was made. Symptomatically, she is doing well from a gastrointestinal standpoint. She denies having any nausea or vomiting. Continues to eat well. She does have some vague upper abdominal pain. Her bowel function remains regular. She reports having melenic type black stools three weeks ago and also for the last several days. Of note, her current fecal occult blood was negative from the ER. PAST MEDICAL HISTORY: 1. Asthma, cardiomyopathy, atrial fibrillation, status post AICD placement and Watchman procedure. 2. Adult onset diabetes. 3. Reportedly had a ruptured left kidney with a chiropractic session causing hematoma, hyperlipidemia, hypertension, and fibromyalgia. 4. The patient had negative colonoscopy in 2008. PAST SURGICAL HISTORY: Include CABG, cholecystectomy, tubal ligation, and Watchman procedure. SOCIAL HISTORY: The patient lives in [place] with her . No tobacco or alcohol usage. FAMILY HISTORY: Negative for any known GI problem, liver disease, or GI malignancy. REVIEW OF SYSTEMS: A 10-point review of systems did not show any other reported symptom not otherwise stated above. ALLERGIES: ASPIRIN AND NSAID. HOME MEDICATIONS: Include; 1. Cordarone. 2. Cardizem. 3. Plavix (stopped a week ago). 4. Lipitor. 5. Eliquis 5 mg b.i.d. 6. Xopenex inhaler. 7. Nebulized inhaler. 8. Lasix. 9. Metformin. 10. Spironolactone. 11. Prednisone 20 mg daily. PHYSICAL EXAMINATION: VITAL SIGNS: Temperature is 98.8, blood pressure 122/73, and pulse of 69. GENERAL: She is alert, conversant without distress. HEENT: Shows anicteric sclerae. Oropharynx is clear and moist. NECK: Supple. No adenopathy. CV: Shows normal S1 and S2. Regular rate. Irregular rhythm. CHEST: Shows a breath sounds clear to auscultation. ABDOMEN: Soft. No distention. No tympany. No palpable mass or organomegaly. She has active bowel sounds. EXTREMITIES: Does not show any edema. LABORATORY DATA: Hemoglobin is 9.8 with MCV of 86, platelet count 385, and WBCs 15.2. INR is 1.5 and PTT 26. Her electrolytes within normal range. Creatinine 1.02, bilirubin 0.4, AST 14, ALT 10, and alkaline phosphatase 86. ASSESSMENT: 1. Acute on chronic anemia with current hemoglobin 9.8 g/dL, which is down from with a hemoglobin of 13 reportedly back in December. The patient does relate having black stools suggestive of melena three weeks ago and more recently. She does not have any evidence of significant active bleeding at the present time with fecal occult blood negative. She is on Eliquis and no longer on Plavix as of a week ago. Concurrent gastrointestinal bleeding source is suspected. 2. Cardiomyopathy/coronary artery disease/atrial fibrillation, status post Watchman procedure. 3. Diabetes. 4. Hypertension. 5. Chronic obstructive pulmonary disease. RECOMMENDATION: 1. At this point, we will proceed with diagnostic upper endoscopy given her reported history of having black stool. 2. The patient can defer a colonoscopy down the road once her cardiac situation becomes more stabilized. 3. Further recommendation to follow pending above findings. More than likely, the patient can be discharged home if there is no significant finding noted on the upper endoscopy. Job ID: [id number]
[2020-03-17] MEDS ORDERED: Spironolactone 25 MG TAB PO SCH (21:00)
[2020-03-18] MEDS: HYDROcodone/Acetaminophen 7.5/325 mg Tablet PO PRN ×4 (03:38→20:04)
[2020-03-18 05:50] LABS: #Eosinphils 0.1 thou/uL (0.0-0.7); #Lymphocytes 1.9 thou/uL (1.20-3.40); #Monocytes 1.2 thou/uL (0.11-0.59); #Neutrophils 7.9 thou/uL (1.40-6.50); %Basophils 0.1 % (0.0-1.0); %Eosinophils 1.2 % (0.0-10.0); %Lymphocytes 17.2 % (21.0-51.0); %Monocytes 10.6 % (0.0-10.0); %Neutrophils 70.9 % (42.0-75.0); Hemoglobin 10.6 g/dL (12.0-16.0); Mean Corpuscular HGB CONC 31.6 g/dL (32.0-36.0); Mean Corpuscular Hemoglobin 27.5 pg (27.0-31.0); Mean Platelet Volume 7.1 fL (7.4-10.4); Platelet Count 433 thou/uL (130-400); RBC Distribution Width 14.3 % (11.5-14.5); Red Blood Cell (RBC) Count 3.85 mill/uL (4.20-5.40); White Blood Cell (WBC) Count 11.1 thou/uL (4.8-10.8)
[2020-03-18 06:10] LABS: Phosphorus 3.2 mg/dL (2.3-4.7)
[2020-03-18 06:12] LABS: Anion Gap 15 mmol/L (10-20); BUN (Urea Nitrogen) 12 mg/dL (9.8-20.1); Calc. Creatinine Clearance 63 mL/min (70-130); Carbon Dioxide 27 mmol/L (23-31); Chloride 97 mmol/L (98-107); Estimated GFR-MDRD 60; Glucose 98 mg/dL (80-115); Magnesium 1.9 mg/dL (1.6-2.6); Potassium 3.5 mmol/L (3.5-5.1); Sodium 135 mmol/L (136-145)
[2020-03-18] MEDS ORDERED: Magnesium 2 GM/50 ML 2 GM in Premix Bag 1 BAG IVPB SCH (06:15)
[2020-03-18] MEDS: predniSONE 20 MG TAB PO SCH (06:30)
[2020-03-18] MEDS ORDERED: Potassium Chloride 20 MEQ TAB PO SCH (06:30)
[2020-03-18 08:08] LABS: SARS-CoV-2 NAA Rapid Test Not Detected (NotDetected)
[2020-03-18] MEDS: Pantoprazole 40 MG VIAL IVP SCH (08:20)
[2020-03-18] MEDS: Amiodarone 200 MG TAB PO SCH (08:32)
[2020-03-18] MEDS ORDERED: predniSONE 20 MG TAB PO SCH (09:00)
[2020-03-18] MEDS ORDERED: PROPOFOL 200 MG/20 ML VIAL ONE (10:09)
[2020-03-18] MEDS: Iron, Sodium Ferric Gluconate 250 MG in Sodium Chloride 0.9% 100 ML IVPB SCH (15:04)
--- NOTE | 2020-03-18 16:11 | PDOC.HOSPP ---
- Subjective Encounter Date: 03/18/20 Encounter Time: 15:00 Subjective: Patient seen and examined for symptomatic anemia. Denies any melena or hematochezia. Lightheadedness is improving. Denies any nausea or abdominal pain. - Objective Vital Signs & Weight: Vital Signs (12 hours) Temp Pulse Resp BP BP BP BP 03/18/20 15:16 77 03/18/20 13:25 98.7 F 77 18 129/69 03/18/20 08:25 98.3 F 75 20 106/66 03/18/20 08:00 98.3 F 75 20 106/66 03/18/20 07:23 98.3 F 75 20 106/66 03/18/20 05:00 98.4 F 75 18 106/70 106/70 99/66 BP Pulse Ox 03/18/20 15:16 03/18/20 13:25 96 03/18/20 08:25 97 03/18/20 08:00 97 03/18/20 07:23 97 03/18/20 05:00 104/67 95 Weight Weight 155 lb I&O: 03/17/20 03/18/20 03/19/20 06:59 06:59 06:59 Intake Total 1150 Balance 1150 Result Diagrams: 03/18/20 05:29 03/18/20 05:29 Additional Labs: Accuchecks 03/18/20 03/17/20 03/17/20 13:28 19:46 16:37 POC Glucose 154 H 198 H 194 H Laboratory Tests 03/17/20 03/17/20 03/17/20 14:38 14:38 14:38 Magnesium 1.5 L Iron 21 L TIBC 371 Ferritin 36.15 B-Natriuretic Peptide 03/17/20 14:38 Magnesium Iron TIBC Ferritin B-Natriuretic Peptide 316.4 H EKG Reviewed by me: Yes (Paced rhythmon admit EKG) Hospitalist ROS - Review of Systems Cardiovascular: denies: chest pain, palpitations, orthopnea, paroxysmal noc. dyspnea, edema, light headedness, other Gastrointestinal: denies: nausea, vomiting, abdominal pain, diarrhea, constipation, melena, hematochezia, other - Medication Medications: Active Medications Generic Name Dose Route Start Last Admin Trade Name Freq PRN Reason Stop Dose Admin Hydrocodone Bitart/Acetaminophen 1 tab 03/17/20 15:15 09/17/20 15:09 Hydrocodone/Acetaminophen 7.5/325 Mg Tablet PO 1 tab Q4H PRN Administration Moderate Pain (4-6) Amiodarone HCl 200 mg 03/18/20 09:00 03/18/20 08:32 Amiodarone 200 Mg Tab PO 200 mg DAILY HARISH Administration Atorvastatin Calcium 40 mg 03/17/20 21:00 03/17/20 19:48 Atorvastatin Calcium 40 Mg Tab PO 40 mg HS HARISH Administration Cyanocobalamin 1,000 mcg 03/17/20 21:00 03/17/20 19:48 Cyanocobalamin (Vitamin B-12) 1,000 Mcg Tab PO 1,000 mcg HS HARISH Administration Diltiazem HCl 120 mg 03/18/20 09:00 03/18/20 15:16 Diltiazem Cd 120 Mg Cap PO Not Given DAILY HARISH Folic Acid 1 mg 03/17/20 21:00 03/17/20 19:48 Folic Acid 1 Mg Tab PO 1 mg HS HARISH Administration Ferric Sodium Gluconate 120 mls @ 60 mls/hr 03/17/20 16:00 03/18/20 15:04 Complex 250 mg/ Sodium IVPB 03/18/20 17:59 120 mls Chloride Q24H HARISH Administration Insulin Human Lispro 0 units 03/17/20 15:48 03/17/20 17:02 Humalog 300 Units/3 Ml Vial SC 2 unit .MILD SLIDING SCALE PRN Administration Mild Correctional Scale Multivitamins 1 tab 03/17/20 21:00 03/17/20 19:48 Multivit, Therapeutic 1 Tab PO 1 tab HS HARISH Administration Prednisone 20 mg 03/18/20 07:00 03/18/20 06:30 Prednisone 20 Mg Tab PO 20 mg 0700 HARISH Administration - Exam General Appearance: NAD Neck: supple, no JVD Heart: RRR, no gallops, no rubs, normal peripheral pulses Respiratory: no wheezes, no rales, no ronchi, normal chest expansion Gastrointestinal: soft, non-tender, non-distended, normal bowel sounds Extremities: no cyanosis, no clubbing, no edema Extremities - other findings: No calf tenderness Skin: normal turgor Neurological: no new deficit Musculoskeletal: normal tone, generalized weakness Psychiatric: normal affect, A&O x 3 Hosp A/P (1) Symptomatic anemia Code(s): D64.9 - ANEMIA, UNSPECIFIED Status: Acute (2) General weakness Code(s): R53.1 - WEAKNESS Status: Acute (3) Hypomagnesemia Code(s): E83.42 - HYPOMAGNESEMIA Status: Acute (4) Chronic a-fib Code(s): I48.20 - CHRONIC ATRIAL FIBRILLATION, UNSPECIFIED Status: Chronic (5) Iron deficiency anemia due to chronic blood loss Code(s): D50.0 - IRON DEFICIENCY ANEMIA SECONDARY TO BLOOD LOSS (CHRONIC) Status: Acute (6) DM2 (diabetes mellitus, type 2) Status: Chronic Qualifiers: Chronic kidney disease stage: stage 3 (moderate) (7) Chronic anticoagulation Code(s): Z79.01 - GROUP HOME (CURRENT) USE OF ANTICOAGULANTS Status: Chronic - Plan DVT proph w/SCDs 03/18 Patient underwent EGD today and that was negative per RN report. Official report pending at this time. There was no active bleeding found. Will continue iron infusion. Patient still feels generally weak and fatigue. Her hemoglobin is improved to 10.6 from 9.8 today. Reticulocyte was elevated at 3.4. There is no ongoing active bleed at this time. I discussed extensively with the cardiology and electrophysiology regarding initiation of anticoagulation. Pat ient will require repeat ARI per electrophysiology on an urgent basis to determine this. Patient is agreeable to this. We will keep her n.p.o. past midnight. Replace magnesium. Repeat CBC and electrolytes in a.m. Update at 4:45 PMpatient will be changed to inpatient status [facility] Other chronic issueshistory of asthma, history of AICD placement, history of pericardial effusion earlier this year, negative colonoscopy in 2008, coronary artery disease s/p CABG
--- NOTE | 2020-03-18 16:34 | OP ---
DATE OF PROCEDURE: 03/18/2020 PROCEDURE PERFORMED: Esophagogastroduodenoscopy. PREOPERATIVE DIAGNOSES: GI bleed and iron-deficiency anemia. DESCRIPTION OF PROCEDURE: Informed consent was obtained from the patient. She was sedated with total intravenous anesthesia. The bite block was placed, and the endoscope was advanced easily to the second portion of the duodenum and retroflexion was performed in the stomach. The esophagus was normal. The GE junction was normal. The stomach was normal including retroflexed views. The pylorus and first and second portions of the duodenum were normal. IMPRESSION: 1. Normal esophagogastroduodenoscopy. 2. Anemia. She has no further overt GI bleeding and was Hemoccult negative. She can restart her Eliquis and follow the trend of her hemoglobin. She can receive iron IV infusion as needed. 3. She can follow up in GI Clinic in a month to reassess the progress of her anemia and cardiac status. Colonoscopy can be performed in the future after her heart status and anticoagulation status are further established. She is following with Dr. Abdi. I will sign off for now. Please call if GI can be of assistance. Job ID: [id number]
[2020-03-18] MEDS: HumaLOG 300 UNITS/3 ML VIAL SC PRN (17:12)
[2020-03-18] MEDS: Multivit, Therapeutic 1 TAB PO SCH (20:04)
[2020-03-18] MEDS: Atorvastatin Calcium 40 MG TAB PO SCH (20:04)
[2020-03-18] MEDS: Cyanocobalamin (Vitamin B-12) 1,000 MCG TAB PO SCH (20:05)
[2020-03-18] MEDS: Folic Acid 1 MG TAB PO SCH (20:05)
[2020-03-19] MEDS: HYDROcodone/Acetaminophen 7.5/325 mg Tablet PO PRN ×5 (00:50→20:45)
[2020-03-19 06:11] LABS: #Basophils 0.1 thou/uL (0.0-0.2); #Eosinphils 0.1 thou/uL (0.0-0.7); #Lymphocytes 1.7 thou/uL (1.20-3.40); #Monocytes 0.9 thou/uL (0.11-0.59); #Neutrophils 6.3 thou/uL (1.40-6.50); %Basophils 0.6 % (0.0-1.0); %Eosinophils 0.7 % (0.0-10.0); %Lymphocytes 18.7 % (21.0-51.0); %Monocytes 10.2 % (0.0-10.0); %Neutrophils 69.8 % (42.0-75.0); Hemoglobin 8.4 g/dL (12.0-16.0); Mean Corpuscular HGB CONC 31.6 g/dL (32.0-36.0); Mean Corpuscular Hemoglobin 27.6 pg (27.0-31.0); Mean Corpuscular Volume 87.3 fL (78.0-98.0); Mean Platelet Volume 7.2 fL (7.4-10.4); Platelet Count 347 thou/uL (130-400); RBC Distribution Width 14.8 % (11.5-14.5); Red Blood Cell (RBC) Count 3.05 mill/uL (4.20-5.40); White Blood Cell (WBC) Count 9.1 thou/uL (4.8-10.8)
[2020-03-19 06:42] LABS: Anion Gap 13 mmol/L (10-20); BUN (Urea Nitrogen) 9 mg/dL (9.8-20.1); Calc. Creatinine Clearance 66 mL/min (70-130); Calcium 8.8 mg/dL (7.8-10.44); Carbon Dioxide 28 mmol/L (23-31); Chloride 103 mmol/L (98-107); Estimated GFR-MDRD 64; Glucose 86 mg/dL (80-115); Potassium 3.9 mmol/L (3.5-5.1); Sodium 140 mmol/L (136-145)
[2020-03-19] MEDS ORDERED: Magnesium 2 GM/50 ML 2 GM in Premix Bag 1 BAG IVPB SCH (07:15)
[2020-03-19] MEDS: predniSONE 20 MG TAB PO SCH ×2 (08:40→14:53)
[2020-03-19] MEDS: Amiodarone 200 MG TAB PO SCH ×2 (08:40→14:53)
[2020-03-19] MEDS: Acetaminophen 325 MG TAB PO PRN ×2 (08:40→23:47)
[2020-03-19] MEDS ORDERED: PROPOFOL 40 ML ONE (13:19)
--- NOTE | 2020-03-19 19:58 | CON ---
DATE OF CONSULTATION: 03/19/2020 HISTORY OF PRESENT ILLNESS: I am seeing Mrs. 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 Her problems are; 1. Persisting atrial arrhythmias. a. Pulmonary venous isolation procedure on May 28, 2019, and subsequent Watchman device placement requiring amiodarone loading for recurrent post ablation. b. Residual leak prompted a radiofrequency closure of the leak by Dr. Scales. c. ARI today on 03/19/2020 demonstrates no leak adjacent to the Watchman device. 2. History of GI bleed related anemia. a. Endoscopy on 03/18/2020 demonstrates no bleeding source in the GUD. 3. Chronic systolic congestive heart failure with ischemic cardiomyopathy. a. History of hypertrophic obstructive cardiomyopathy. b. Status post septal myectomy and bypass grafting surgery on 10/01/2006. 4. Left bundle-branch block. a. Status post Bi-V ICD implant. 5. History of hematuria. 6. Type 2 diabetes. 7. Steroid-dependent asthma. 8. Severe aspirin allergy. ALLERGIES: ASPIRIN WITH ANAPHYLAXIS, NONSTEROIDALS ALSO CAUSING ANAPHYLAXIS, BETA-BLOCKERS CAUSING DYSPNEA. MEDICATIONS: At home included Xopenex, Ventolin, Lasix, Klor-Con, DuoNeb, Colace, metformin, prednisone, [place], Lipitor, clopidogrel, Eliquis, and Cordarone. PAST MEDICAL HISTORY: As above, she has history of steroid-dependent asthma and diabetes. FAMILY HISTORY: Noncontributory. SUBJECTIVE: Mrs. Humphreys was admitted with GI bleed. She was evaluated by GI service with EGD and no overt bleeding source was found. Her hemoglobin has improved after transfusion and she was considered to be discharged. She also has had a recent left atrial procedure, hence persisting shekhar Watchman leak by Dr. Scales. This procedure was a radiofrequency closure of the shekhar Watchman leak performed in December 2019. No subsequent followup echo was performed. She is here today for consideration of further EP evaluation. Dr. Carvalho conducted me in this regard. Currently, she seems to be doing well. She is still concerned about hemoglobin drop. She denies angina or CHF like symptoms. No palpitations. She has history of tarry stools. No hematemesis or hematuria is noted. No fever, chills, or cough. REVIEW OF SYSTEMS: Rest of 12-point system otherwise unremarkable. OBJECTIVE DATA: VITAL SIGNS: Blood pressure is 110/77, heart rate 81, respirations 16, temperature 99 degrees Fahrenheit. GENERAL: Alert and oriented, somewhat pale-appearing woman, in no apparent distress. NECK: Supple. Jugular veins not distended. CHEST: Coarse without crackles. HEART: Sounds are regular rate and rhythm. No murmur or gallop. ABDOMEN: Benign. Bowel sounds positive. EXTREMITIES: Lower extremities without edema, clubbing, or cyanosis. Pulses are adequate. NEUROLOGIC: The patient is nonfocal. MUSCULOSKELETAL: Without joint swelling or deformity. SKIN: Without rash. LABORATORY DATA: White cells 9.1, hemoglobin today 8.4, platelet count is 347. Yesterday's hemoglobin was 10.6 and the admission hemoglobin was 9.8. INR 1.5. Sodium 140, potassium 3.9, BUN is 13, creatinine 0.88. ASSESSMENT AND PLAN: Ms. Humphreys is a pleasant 69-year-old woman with prior history of hypertrophic cardiomyopathy, coronary artery disease, bypass surgery, persisting atrial fibrillation, prior pulmonary venous isolation procedure, subsequent Watchman device placement in May 2019. Hence residual leak, she underwent a radiofrequency closure of her Watchman device leak adjacent to the Watchman device. She has undergone a ARI today to demonstrate closure, which indeed was the case. No leak was demonstrated. I discussed with Dr. Carvalho and Dr. Abdi that at this point hence the ongoing GI bleed, likely she could not be placed back on oral anticoagulation, but based on the study today, she will likely not require oral anticoagulation in the future. She is severely allergic to aspirin and Plavix could be considered once bleeding issue is completely resolved. For now, likely she will need to go without that as well depending on GI opinion. She is welcome to follow up in our office in about 6 weeks. Thank you again for allowing me to participate in care of this patient. Job ID: [id number]
[2020-03-19] MEDS: Atorvastatin Calcium 40 MG TAB PO SCH (20:44)
[2020-03-19] MEDS: Cyanocobalamin (Vitamin B-12) 1,000 MCG TAB PO SCH (20:44)
[2020-03-19] MEDS: Folic Acid 1 MG TAB PO SCH (20:45)
[2020-03-19] MEDS: Multivit, Therapeutic 1 TAB PO SCH (20:45)
--- NOTE | 2020-03-19 22:33 | PDOC.HOSPP ---
- Subjective Encounter Date: 03/19/20 Encounter Time: 11:00 Subjective: Patient seen and examined for anemia. Feels somewhat lightheaded and dizzy. No new hematemesis or melena. - Objective Vital Signs & Weight: Vital Signs (12 hours) Temp Pulse Resp BP BP BP Pulse Ox 03/19/20 20:00 98.6 F 80 18 119/71 98 03/19/20 19:32 98.6 F 80 18 119/71 98 03/19/20 15:30 98.3 F 73 16 122/78 100 03/19/20 14:57 73 138/83 03/19/20 14:40 99 F 76 24 H 129/77 94 L 03/19/20 11:46 99.0 F 81 16 129/77 93 L Weight Weight 155 lb I&O: 03/18/20 03/19/20 03/20/20 06:59 06:59 06:59 Intake Total 1150 1010 980 Balance 1150 1010 980 Result Diagrams: 03/19/20 05:31 03/19/20 05:31 Additional Labs: Accuchecks 03/19/20 03/19/20 03/19/20 19:41 15:35 11:50 POC Glucose 201 H 83 87 Hospitalist ROS - Review of Systems Respiratory: denies: cough, dry, shortness of breath, hemoptysis, SOB with excertion, pleuritic pain, sputum, wheezing, other Cardiovascular: reports: light headedness. denies: chest pain, palpitations, orthopnea, paroxysmal noc. dyspnea, edema, other - Medication Medications: Active Medications Generic Name Dose Route Start Last Admin Trade Name Freq PRN Reason Stop Dose Admin Acetaminophen 650 mg 03/17/20 15:11 03/19/20 08:40 Acetaminophen 325 Mg Tab PO 650 mg Q4H PRN Administration Headache/Fever/Mild Pain (1-3) Hydrocodone Bitart/Acetaminophen 1 tab 03/17/20 15:15 03/19/20 20:45 Hydrocodone/Acetaminophen 7.5/325 Mg Tablet PO 1 tab Q4H PRN Administration Moderate Pain (4-6) Amiodarone HCl 200 mg 03/18/20 09:00 03/19/20 14:53 Amiodarone 200 Mg Tab PO 200 mg DAILY HARISH Administration Atorvastatin Calcium 40 mg 03/17/20 21:00 03/19/20 20:44 Atorvastatin Calcium 40 Mg Tab PO 40 mg HS HARISH Administration Cyanocobalamin 1,000 mcg 03/17/20 21:00 03/19/20 20:44 Cyanocobalamin (Vitamin B-12) 1,000 Mcg Tab PO 1,000 mcg HS HARISH Administration Folic Acid 1 mg 03/17/20 21:00 03/19/20 20:45 Folic Acid 1 Mg Tab PO 1 mg HS HARISH Administration Insulin Human Lispro 0 units 03/17/20 15:48 03/18/20 17:12 Humalog 300 Units/3 Ml Vial SC 3 unit .MILD SLIDING SCALE PRN Administration Mild Correctional Scale Multivitamins 1 tab 03/17/20 21:00 03/19/20 20:45 Multivit, Therapeutic 1 Tab PO 1 tab HS HARISH Administration Pantoprazole Sodium 40 mg 03/19/20 09:00 03/19/20 08:40 Pantoprazole 40 Mg Tab PO 40 mg DAILY HARISH Administration Prednisone 20 mg 03/18/20 07:00 03/19/20 14:53 Prednisone 20 Mg Tab PO 20 mg 0700 HARISH Administration - Exam General Appearance: NAD Neck: supple, no JVD Heart: no gallops, no rubs Respiratory: no wheezes, no ronchi Gastrointestinal: non-tender, non-distended Extremities: no cyanosis, no clubbing Neurological: no new deficit Hosp A/P (1) Symptomatic anemia Code(s): D64.9 - ANEMIA, UNSPECIFIED Status: Acute (2) General weakness Code(s): R53.1 - WEAKNESS Status: Acute (3) Hypomagnesemia Code(s): E83.42 - HYPOMAGNESEMIA Status: Acute (4) Chronic a-fib Code(s): I48.20 - CHRONIC ATRIAL FIBRILLATION, UNSPECIFIED Status: Chronic (5) Iron deficiency anemia due to chronic blood loss Code(s): D50.0 - IRON DEFICIENCY ANEMIA SECONDARY TO BLOOD LOSS (CHRONIC) Status: Acute (6) DM2 (diabetes mellitus, type 2) Status: Chronic Qualifiers: Chronic kidney disease stage: stage 3 (moderate) (7) Chronic anticoagulation Code(s): Z79.01 - PENITENTIARY (CURRENT) USE OF ANTICOAGULANTS Status: Chronic - Plan DVT proph w/SCDs 03/19 Patient's hemoglobin dropped to 8.4 from 10.6. A stool for occult blood was negative this admission. EGD was normal. Patient received IV iron. She is scheduled for ARI today. Anticoagulation on hold due to anemia. Continue amiodarone. Change Protonix to po. Replace magnesium. Will administer 1 more dose of IV iron recheck hemoglobin in a.m. Ambulate. Discharge home in 24 hours if stable plan discussed with cardiology and electrophysiology patient stated understanding orthostatic vitals were negative 03/18 Patient underwent EGD today and that was negative per RN report. Official report pending at this time. There was no active bleeding found. Will continue iron infusion. Patient still feels generally weak and fatigue. Her hemoglobin is improved to 10.6 from 9.8 today. Reticulocyte was elevated at 3.4. There is no ongoing active bleed at this time. I discussed extensively with the cardiology and electrophysiology regarding initiation of anticoagulation. Patient will require repeat ARI per electrophysiology on an urgent basis to determine this. Patient is agreeable to this. We will keep her n.p.o. past midnight. Replace magnesium. Repeat CBC and electrolytes in a.m. Update at 4:45 PMpatient will be changed to inpatient status per recommendation by [facility] - Dr Nadira Chun Other chronic issueshistory of asthma, history of AICD placement, history of pericardial effusion earlier this year, negative colonoscopy in 2008, coronary artery disease s/p CABG
[2020-03-19] MEDS ORDERED: Iron Sucrose Complex 200 MG in Sodium Chloride 0.9% 100 ML IVPB SCH (22:45)
[2020-03-19] MEDS ORDERED: Iron, Sodium Ferric Gluconate 250 MG in Sodium Chloride 0.9% 100 ML IVPB SCH (23:30)
[2020-03-20] MEDS: HYDROcodone/Acetaminophen 7.5/325 mg Tablet PO PRN ×2 (01:47→09:32)
[2020-03-20 07:18] VITALS: BP 119/79; TEMP 97.5
[2020-03-20 07:18] LABS: Hemoglobin 9.1 g/dL (12.0-16.0)
[2020-03-20] MEDS: predniSONE 20 MG TAB PO SCH (08:46)
[2020-03-20] MEDS: Amiodarone 200 MG TAB PO SCH (08:46)
--- NOTE | 2020-03-20 10:41 | DIS ---
DATE OF ADMISSION: 03/18/2020 DATE OF DISCHARGE: 03/20/2020 DISCHARGE DISPOSITION: Home. FOLLOWUP: 1. Follow up with primary care physician, Dr. Lord in 1 week. 2. Resume home health care. 3. Repeat CBC in 1 week was recommended. 4. Primary care physician advised to follow. The patient was seen and examined on the day of discharge. Denies any new complaints. No chest pain, shortness of breath, palpitations, or GI bleeding reported. SIGNIFICANT LABORATORY DATA: 1. Hemoglobin at discharge was 9.1. Lowest hemoglobin this admission was 8.4. 2. Iron profile showed iron of 21, TIBC 371 with ferritin of 36. 3. Magnesium was 1.5, at discharge was 2.0. 4. Sodium 135. 5. COVID testing was negative. 6. Urinalysis was negative. 7. Stool for occult blood was negative. 8. Vitamin B12, 1276. 9. Folic acid 13.8. BRIEF HOSPITAL COURSE: The patient is a 69-year-old female with paroxysmal atrial fibrillation, status post Watchman device, currently on Eliquis, presented to the emergency room with generalized weakness and malaise. Plavix was discontinued last week by Cardiology. She was admitted to the hospital with a diagnosis of symptomatic anemia. Please refer to the history and physical for details. The patient was evaluated by Gastroenterology due to severe anemia. Her baseline hemoglobin is between 12 to 13 until end of December. She was recently found to have hemoglobin of 8.8 as an outpatient. She was found to be iron deficiency, for which she received IV iron supplementation. Her reticulocyte count was 3.4. She underwent EGD that was normal. She was advised to follow up with GI Clinic as an outpatient for possible colonoscopy. The case was discussed with Cardiology and Electrophysiology, who recommended ARI to assess the Watchman device. The patient underwent ARI on 03/19/2020 that was negative for any leak. Eliquis has been discontinued. The patient will check with Dr. Abdi next week if Plavix can be restarted. I discussed with Gastroenterology, Dr. Donovan, who is okay with starting back on antiplatelet or anticoagulants if needed. She will continue PPIs. The patient has been cleared by consultants for discharge. FINAL DIAGNOSES: 1. Generalized weakness due to symptomatic anemia. 2. Paroxysmal atrial fibrillation. Anticoagulation discontinued this admission. 3. Coronary artery disease, status post coronary artery bypass grafting. 4. History of asthma, on chronic steroids. 5. History of pericardial effusion earlier this year. 6. Diabetes mellitus, type 2. 7. Iron deficiency anemia, probably due to gastrointestinal chronic blood loss. 8. Hypomagnesemia, replaced. 9. Hyponatremia. Job ID: [id number]
--- NOTE | 2020-03-23 13:11 | CCLSPC ---
PROCEDURE: Transesophageal echocardiogram. REASON FOR PROCEDURE: Mrs. Humphreys is a 69-year-old woman with history of GI bleed, status post Watchman procedure and coiling and subsequently radiofrequency closure of the Watchman leak. She has a pending ARI. She was admitted for GI bleed, and we are going to perform transesophageal echocardiogram to evaluate her future need for anticoagulation and closure of the Watchman device leak. PROCEDURE IN DETAIL: The patient received propofol by Anesthesia specialist. After adequate level of sedation was achieved, the standard transesophageal echocardiogram probe was passed into the esophagus without difficulty. The patient tolerated the procedure well. No complication was noted. RESULTS: The left atrium is moderately enlarged, about 4.7 cm in horizontal diameter. Left atrial appendage with adequately seated Watchman device in place. There is adequate opacification posterior to the Watchman device in the left atrial appendage noted suggestive of fully clotted area, no flow. Color Doppler interrogation did not reveal significant flow adjacent to the Watchman device. Four of four pulmonary veins were visualized. The interatrial septum is free of defect. The visualized portion of aorta, ascending, and descending is without aneurysm, dissection, or atheroma. The left ventricular systolic function is preserved. The mitral valve has adequate opening. Mild mitral regurgitation is noted. The aortic valve is with trace regurgitation, 3 leaflets identified, minor thickening is noted, not stenotic. The tricuspid valve has mild regurgitation. The right-sided chamber is nondilated. The interventricular septum appears to be in normal range. The pericardial space has a moderate amount of clotted material in it. The mitral inflow did not reveal significant variation, no evidence of tamponade detected. CONCLUSION: 1. Adequately seated and well-sealed watchman device in place. 2. Normal left ventricular systolic function. 3. Moderate left atrial enlargement. 4. Mild mitral and tricuspid regurgitation, mild aortic regurgitation. 5. Pericardial space with moderate amount of clotted material suggestive of old pericardial effusion, no evidence of tamponade. Job ID: [id number]
== END 2020-03-20 11:14 | disposition home health service (06) | DRG 812 ==
LOC: ERS 09:31 → T4-B 12:50 → OBSVTOIN 03-18 16:44
PROVIDERS: ADMIT Internal Medicine; ATTEND Internal Medicine
PROC: 0DJ08ZZ Inspection of Upper Intestinal Tract, Via Natural or Artificial Opening Endoscopic (ICD-10-PCS; principal; 2020-03-18)
DX: D50.0 Iron deficiency anemia secondary to blood loss (chronic) (principal); K92.2 Gastrointestinal hemorrhage, unspecified; I50.22 Chronic systolic (congestive) heart failure; E87.1 Hypo-osmolality and hyponatremia; E83.42 Hypomagnesemia; E11.9 Type 2 diabetes mellitus without complications; I25.10 Atherosclerotic heart disease of native coronary artery without angina pectoris; E78.5 Hyperlipidemia, unspecified; M79.7 Fibromyalgia; J44.9 Chronic obstructive pulmonary disease, unspecified; K21.9 Gastro-esophageal reflux disease without esophagitis; I11.0 Hypertensive heart disease with heart failure; I25.5 Ischemic cardiomyopathy; I44.7 Left bundle-branch block, unspecified; Z20.828 Contact with and (suspected) exposure to other viral communicable diseases; I48.0 Paroxysmal atrial fibrillation; Z79.01 Long term (current) use of anticoagulants; Z79.52 Long term (current) use of systemic steroids; Z79.899 Other long term (current) drug therapy; Z95.810 Presence of automatic (implantable) cardiac defibrillator; Z88.5 Allergy status to narcotic agent; Z88.8 Allergy status to other drugs, medicaments and biological substances; Z95.1 Presence of aortocoronary bypass graft; Z90.49 Acquired absence of other specified parts of digestive tract; Z98.51 Tubal ligation status
CPT/HCPCS: 36415; 36416; 36600; 71046; 74177; 80048; 80053; 81003; 82274; 82607; 82728; 82746; 83540; 83550; 83605; 83690; 83735; 83880; 84100; 84443; 84484; 85014; 85018; 85025; 85046; 85610; 85730; 86850; 86900; 86901; 87635; 93005; 93312; C9113; J2704; J2916; J3475; J3490; J7512; Q9967; U0002; U0003

== ENCOUNTER 2020-03-21 10:54 | Emergency (ER) | payer MEDICARE ==
--- NOTE | 2020-03-21 11:59 | RAD ---
EXAM: CHEST ONE VIEW HISTORY: Shortness of breath. COMPARISON: 03/17/2020 FINDINGS: Multilead left subclavian AICD device is again noted in place with postoperative changes related to m edian sternotomy. Cardiac silhouette remains enlarged. The pulmonary vasculature is within normal limits. Mild increase in interstitial densities are seen at the right lung base which could be relate d to developing pneumonitis. There is blunting of the left lateral costophrenic angle suggesting tiny left pleural effusion. Osteopenia is present. Vascular calcifications are seen in the thoracic a daniel. IMPRESSION: 1. Mild increase in interstitial opacities right lung base which may be related to developing pneumon itis. Follow-up evaluation is recommended. 2. Tiny left pleural effusion. 3. Cardiomegaly.
[2020-03-21 12:31] LABS: #Basophils 0.2 thou/uL (0.0-0.2); #Eosinphils 0.1 thou/uL (0.0-0.7); #Lymphocytes 0.3 thou/uL (1.20-3.40); #Monocytes 1.3 thou/uL (0.11-0.59); #Neutrophils 14.2 thou/uL (1.40-6.50); %Basophils 1.2 % (0.0-1.0); %Eosinophils 0.4 % (0.0-10.0); %Monocytes 8.3 % (0.0-10.0); Hemoglobin 9.3 g/dL (12.0-16.0); Mean Corpuscular HGB CONC 31.8 g/dL (32.0-36.0); Mean Corpuscular Hemoglobin 28.4 pg (27.0-31.0); Mean Corpuscular Volume 89.3 fL (78.0-98.0); Mean Platelet Volume 7.3 fL (7.4-10.4); Platelet Count 345 thou/uL (130-400); RBC Distribution Width 15.6 % (11.5-14.5); Red Blood Cell (RBC) Count 3.27 mill/uL (4.20-5.40); White Blood Cell (WBC) Count 16.1 thou/uL (4.8-10.8)
[2020-03-21 12:46] LABS: INR-International Normal Ratio 0.9; Prothrombin Time 12.5 sec (12.0-14.7)
[2020-03-21 13:05] LABS: ALT (SGPT) 11 U/L (8-55); AST (SGOT) 14 U/L (5-34); Alkaline Phosphatase 85 U/L (40-110); Anion Gap 14 mmol/L (10-20); BUN (Urea Nitrogen) 10 mg/dL (9.8-20.1); Bilirubin, Total 0.3 mg/dL (0.2-1.2); Calc. Creatinine Clearance 0 mL/min (70-130); Calcium 9.2 mg/dL (7.8-10.44); Carbon Dioxide 25 mmol/L (23-31); Chloride 102 mmol/L (98-107); Estimated GFR-MDRD 53; Glucose 117 mg/dL (80-115); Potassium 3.9 mmol/L (3.5-5.1); Sodium 137 mmol/L (136-145)
--- NOTE | 2020-03-21 14:04 | CT ---
ABDOMEN AND PELVIC CT SCAN WITH IV CONTRAST: Comparison: 03-17-2020 FINDINGS: Small bilateral pleural effusions, slightly larger than on prior study. Small stable pericardial effu marvin. Stable left renal cyst. Stable small hiatal hernia. Stable left perinephric fat stranding. Panc reas, spleen, and adrenal glands are unremarkable. No evidence for acute obstruction. Normal appea ring appendix. Colonic diverticulosis without acute diverticulitis. Grade II spondylolisthesis of L5 on S1. IMPRESSION: Very small pleural effusion since the prior study. Otherwise, stable findings. No significant new pro cess. POS: OFF
[2020-03-21] MEDS ORDERED: Furosemide 40 MG/4 ML VIAL ONE (14:11)
[2020-03-21] MEDS ORDERED: HYDROcodone/Acetaminophen 5/325 mg Tablet ONE (14:11)
[2020-03-21 14:23] LABS: Bacteria/HPF None Seen HPF (None Seen); Bilirubin Negative (Negative); Blood, Urine Trace (Negative); Clarity Clear (Clear); Glucose, Urine (Dipstick) Normal (Negative); Ketone, Urine Negative (Negative); Leukocyte 25 Leu/uL (Negative); Nitrite Negative (Negative); Protein, Urine (Dipstick) Negative (Neg-Trace); RBC/HPF 0-3 HPF (0-3); Specific Gravity, Urine 1.039 (1.002-1.036); Squamous Epithelial 0-3 HPF (0-3); Urobilinogen Normal mg/dL (Less than 2); WBC/HPF 0-3 HPF (0-3)
[2020-03-21] MEDS ORDERED: Cefepime 2 GM VIAL ONE (15:21)
== END 2020-03-21 16:35 | disposition home or self-care (01) ==
LOC: ERS 10:54
DX: I11.0 Hypertensive heart disease with heart failure (principal); I50.9 Heart failure, unspecified; J18.9 Pneumonia, unspecified organism; D64.89 Other specified anemias; E11.9 Type 2 diabetes mellitus without complications; E78.5 Hyperlipidemia, unspecified; E78.00 Pure hypercholesterolemia, unspecified; J45.909 Unspecified asthma, uncomplicated; K21.9 Gastro-esophageal reflux disease without esophagitis; Z79.1 Long term (current) use of non-steroidal anti-inflammatories (NSAID); Z79.899 Other long term (current) drug therapy; Z79.51 Long term (current) use of inhaled steroids
CPT/HCPCS: 36415; 71045; 74177; 80053; 81003; 81015; 83880; 84484; 85025; 85610; 86850; 86900; 86901; 87040; 87086; 93005; 96365; 96375; J0692; J1940; Q9967

== ENCOUNTER 2020-05-03 07:15 | Inpatient (IN) | payer MEDICARE ==
[2020-05-03] MEDS ORDERED: Ondansetron ODT 4 MG TAB ONE (07:29)
[2020-05-03 08:14] LABS: Hemoglobin 11.4 g/dL (12.0-16.0); Mean Corpuscular HGB CONC 32.7 g/dL (32.0-36.0); Mean Corpuscular Hemoglobin 28.1 pg (27.0-31.0); Mean Platelet Volume 7.4 fL (7.4-10.4); Platelet Count 243 thou/uL (130-400); RBC Distribution Width 14.9 % (11.5-14.5); Red Blood Cell (RBC) Count 4.06 mill/uL (4.20-5.40); White Blood Cell (WBC) Count 16.8 thou/uL (4.8-10.8)
[2020-05-03 08:33] LABS: ALT (SGPT) 17 U/L (8-55); AST (SGOT) 24 U/L (5-34); Albumin 3.4 g/dL (3.4-4.8); Alkaline Phosphatase 131 U/L (40-110); Anion Gap 16 mmol/L (10-20); BUN (Urea Nitrogen) 16 mg/dL (9.8-20.1); Band 5 % (5-11); Bilirubin, Total 0.5 mg/dL (0.2-1.2); Calc. Creatinine Clearance 0 mL/min (70-130); Calcium 9.3 mg/dL (7.8-10.44); Carbon Dioxide 25 mmol/L (23-31); Chloride 97 mmol/L (98-107); Eosinophils 1 % (0-10); Estimated GFR-MDRD 60; Globulin 2.8 g/dL (2.4-3.5); Glucose 106 mg/dL (80-115); Lipase 12 U/L (8-78); Lymphocytes 1 % (21-51); MDiff Complete? YES; Monocytes 4 % (0-10); Neutrophil 89 % (42-75); Platelet Morphology Comment Appears Adequate; Protein, Total 6.2 g/dL (6.0-8.3); RBC Morphology Normal; Sodium 134 mmol/L (136-145)
--- NOTE | 2020-05-03 09:14 | CT ---
CT OF THE ABDOMEN AND PELVIS WITH IV CONTRAST INDICATION: Right-sided abdominal pain COMPARISON: March 21, 2020 FINDINGS: ABDOMEN: Lung bases: There are small bilateral pleural effusions and bibasilar atelectasis Liver: There is a stable left hepatic lobe cyst. Gallbladder: Surgically absent Pancreas: Normal. Adrenal glands: Normal. Spleen: Normal. Kidneys and ureters: Perinephric stranding is stable and may be related to senescent perinephric stra nding. Vasculature: There are severe vascular calcifications seen involving the visualized vasculature. Lymph nodes:No lymphadenopathy. Free fluid in abdomen:Mild free fluid PELVIS: Small and large bowel: There is a moderate amount retained stool within the colon. There are scattere d diverticula involving the colon without evidence of active diverticulitis. Small bowel is of normal caliber. Appendix:Normal Bladder: There is a small focus of intraluminal gas within the bladder dome Rectal and perirectal soft tissues:Normal. Reproductive structures: Normal. Free fluid in pelvis: Mild free fluid Lymphadenopathy pelvis: No lymphadenopathy is evident. Osseous structures: There is a grade 1 anterolisthesis of L5 on S1. There is diffuse osteopenia. The re is scattered degenerative and osteoarthritic changes. Soft tissues:Normal IMPRESSION: 1. No definite CT explanation for the patient's right-sided abdominal pain. 2. Small bilateral pleural effusions with mild ascites. 3. Small focus of gas within the bladder. Recommend correlation for recent catheterization. Cystitis is not entirely excluded.
[2020-05-03] MEDS ORDERED: Promethazine HCl 25 MG/ML VIAL ONE (10:18)
[2020-05-03] MEDS ORDERED: diphenhydrAMINE 50 MG/ML VIAL ONE (12:35)
[2020-05-03] MEDS ORDERED: Ondansetron PF 4 MG/2 ML Vial ONE (12:35)
[2020-05-03] MEDS ORDERED: Metoclopramide HCl 10 MG/2 ML VIAL ONE (12:35)
[2020-05-03 12:53] LABS: Bilirubin Negative (Negative); Blood, Urine 2+ (Negative); Clarity Clear (Clear); Glucose, Urine (Dipstick) Normal (Negative); Ketone, Urine 10 mg/dL (Negative); Leukocyte 25 Leu/uL (Negative); Nitrite 2+ (Negative); Protein, Urine (Dipstick) 20 mg/dL (Neg-Trace); Squamous Epithelial None Seen HPF (0-3); Urobilinogen Normal mg/dL (Less than 2); pH, Urine 5.5 (5.0-9.0)
[2020-05-03 13:06] LABS: Specific Gravity, Urine 1.056 (1.002-1.036)
[2020-05-03 13:07] LABS: Bacteria/HPF Rare-Few HPF (None Seen)
[2020-05-03] MEDS ORDERED: cefTRIAXone\\ROCEPHIN 1 GM VIAL ONE (13:37)
[2020-05-03] MEDS ORDERED: Iopamidol-370 76% 500 ML 1 ML ONE (13:40)
--- NOTE | 2020-05-03 14:23 | PDOC.HHP ---
Hospitalist HPI - History of Present Illness Nausea vomiting History of Present Illness: Ms. Humphreys is a 69-year-old female with a past medical history significant for A. fib status post watchman status post AICD) no longer on Eliquis due to GI bleed), coronary artery disease status post CABG x2, GERD, hypertension, hyperlipidemia, type 2 diabetes mellitus who presents to the ED for intractable nausea, vomiting, abdominal pain. Patient reports that 4 days prior to admission she developed nausea and vomiting. Patient states that she felt feverish with malaise and had shaking chills. She had multiple episodes of vomiting and dry heaving for which nothing made better or worse. Patient has not been able to keep down any food or any liquids. Denies hematemesis, coffee- ground emesis. Denies melena or hematochezia. Patient then developed right- sided abdominal pain underneath her right rib. Which she says is worse with movement. She denies any chest pain, shortness of breath, palpitations. Denies any numbness/weakness. Denies any headache, changes in vision, neck pain. Patient does note that yesterday she did develop mild dysuria. Denies hematuria or history of chronic UTIs. In emergency room initial vital signs 146/66, 103, 20, 99.2, 91% on room air. EKG showed paced rhythm with no ST changes. WBC 16.8. H/H 11.4/34.9. BUN/CR 16/0.93. Sodium 134, potassium 4.0. AST/ALT 24/17. Lipase 12. UA with 7-10 white blood cells and leukocyte esterase positive. Patient received 1 g of ceftriaxone, 10 mg metoclopramide, 1 L normal saline saline, 25 mg of Benadryl, 4 mg of Zofran, 1.25 mg of promethazine, with minimal improvement in her nausea and vomiting. Patient mated to hospitalist service for further evaluation and monitoring. Hospitalist ROS - Review of Systems Constitutional: reports: fever, chills, malaise Eyes: denies: vision change ENT: denies: nose congestion, throat pain Respiratory: denies: cough, shortness of breath, hemoptysis, pleuritic pain, sputum, wheezing Cardiovascular: denies: chest pain, palpitations, orthopnea, edema, light headedness Gastrointestinal: reports: nausea, vomiting, abdominal pain. denies: diarrhea, constipation, melena, hematochezia Genitourinary: reports: dysuria. denies: frequency, incontinence, hematuria, retention Musculoskeletal: denies: neck pain Skin: denies: rash, lesions Neurological: denies: weakness, numbness, change in speech, seizures - Medication Medications: Home medications include Lasix Atorvastatin Xopenex Proventil inhaler Prednisone Metoprolol [place] Potassium chloride Amiodarone Patient has severe anaphylactic allergy to aspirin. Hospitalist History - Past Medical History Other Medical History: Past surgical history of Yaw. fib not on anticoagulation secondary to GI bleed status post watchman AICD Anemia GERD Hypertension Hyperlipidemia Coronary artery disease status post CABG Chronic steroid use on prednisone - Past Surgical History Other Surgical History: Past surgical history includes CABG Watchman AICD Multiple nasal surgeries Renal cyst removal Cholecystectomy Tubal ligation - Family History Other Family History: No pertinent family history. - Social History Smoking Status: Never smoker Alcohol: reports: None Drugs: reports: none Living Situation: With Family Activity level: independent ambulation - Exam General Appearance: NAD, awake alert Eye: PERRL, anicteric sclera ENT: normocephalic atraumatic, no oropharyngeal lesions, moist mucosa Neck: supple, symmetric, no JVD, no thyromegaly, no lymphadenopathy, no carotid bruit Heart: RRR, no murmur, no gallops, no rubs, normal peripheral pulses Respiratory: CTAB, no wheezes, no rales, no ronchi, normal chest expansion, no tachypnea, normal percussion Gastrointestinal: soft, non-distended, normal bowel sounds, no palpable masses, no hepatomegaly, no splenomegaly, no bruit Gastrointestinal - other findings: Tender to palpation along right lower rib cage Extremities: no cyanosis, no clubbing, no edema Skin: normal turgor, no lesions, no rashes Neurological: cranial nerve grossly intact, normal sensation to touch, no weakness, no focal deficits, no new deficit Musculoskeletal: normal tone, normal strength, no muscle wasting Psychiatric: normal affect, normal behavior, A&O x 3 Hospitalist Results - Labs Result Diagrams: 05/03/20 07:56 05/03/20 07:56 Lab results: WBC 16.8 thou/uL (4.8-10.8) H 05/03/20 07:56 Hgb 11.4 g/dL (12.0-16.0) L 05/03/20 07:56 Hct 34.9 % (36.0-47.0) L 05/03/20 07:56 MCV 86.0 fL (78.0-98.0) 05/03/20 07:56 Plt Count 243 thou/uL (130-400) 05/03/20 07:56 Band Neuts % (Manual) 5 % (5-11) 05/03/20 07:56 Sodium 134 mmol/L (136-145) L 05/03/20 07:56 Potassium 4.0 mmol/L (3.5-5.1) 05/03/20 07:56 Chloride 97 mmol/L (98-107) L 05/03/20 07:56 Carbon Dioxide 25 mmol/L (23-31) 05/03/20 07:56 BUN 16 mg/dL (9.8-20.1) 05/03/20 07:56 Creatinine 0.93 mg/dL (0.6-1.1) 05/03/20 07:56 Glucose 106 mg/dL (80-115) 05/03/20 07:56 Calcium 9.3 mg/dL (7.8-10.44) 05/03/20 07:56 Total Bilirubin 0.5 mg/dL (0.2-1.2) 05/03/20 07:56 AST 24 U/L (5-34) 05/03/20 07:56 ALT 17 U/L (8-55) 05/03/20 07:56 Alkaline Phosphatase 131 U/L (40-110) H 05/03/20 07:56 Serum Total Protein 6.2 g/dL (6.0-8.3) 05/03/20 07:56 Albumin 3.4 g/dL (3.4-4.8) 05/03/20 07:56 Lipase 12 U/L (8-78) 05/03/20 07:56 Urine Ketones 10 mg/dL (Negative) A 05/03/20 12:26 Urine Blood 2+ (Negative) A 05/03/20 12:26 Urine Nitrite 2+ (Negative) A 05/03/20 12:26 Ur Leukocyte Esterase 25 [place]/uL (Negative) A 05/03/20 12:26 Urine RBC 4-6 HPF (0-3) A 05/03/20 12:26 Urine WBC 7-10 HPF (0-3) A 05/03/20 12:26 Ur Squamous Epith Cells None Seen HPF (0-3) 05/03/20 12:26 Urine Bacteria Rare-Few HPF (None Seen) 05/03/20 12:26 Hospitalist H&P A/P - Plan Plan: Intractable nausea and vomiting 6-year-old female with possible history of A. fib, coronary artery disease, GERD who presents with 4 days of intractable nausea and vomiting associated with fevers and chills. In the ED vital signs stable. White blood cell count 16.8. AST/ALT 24/17. Lipase 12. CT abdomen pelvis showed no acute pathology. Patient received multiple antiemetics in the ED. Is unable to tolerate p.o. Low suspicion for any neurologic basis as patient without headache, no neck pain. Likely secondary to GI illness. Low suspicion for gastroparesis. Patient does have a history of type 2 diabetes, however she is not insulin-dependent and reports her hemoglobin A1c at her last PCP checkup was excellent. Will admit for observation and continue to monitor Plan IV fluids Electrolyte monitoring prn Zofran, and metoclopramide -clear liquid diet, advance as tolerated Continue to monitor Abdominal pain Patient reports abdominal pain that began yesterday. Pain is along the bottom of the right rib cage. Pain is reproducible on exam. LFTs within normal limits, lipase 12. CT abdomen pelvis with no acute findings. Suspect likely musculoskeletal injury secondary to retching. Plan -Chest x-ray -Troponin Urinary tract infection Patient endorses dysuria which began yesterday. UA grossly positive. Received 1 g of ceftriaxone in the ED. Plan Continue ceftriaxone Urine culture pending Leukocytosis WBC 16.8. Pt with history of chronic leukocytosis which has been previously worked-up by oncology. Likely chornic vs reactive. Patient with UTI and intractible nausea/vomiting. Afebrile with stable vital signs. Will continue to trend and monitor. Plan -Trend WBC, fever curve -Blood cultrues, lactic acid -Continue to monitor Atrial fibrillation History of A. fib formally on Eliquis, but recently discontinued secondary to GI bleeding. Patient is now status post watchman procedure, and has AICD in place. We will continue home amiodarone, metoprolol once dosages confirmed. EKG shows paced rhythm with normal ventricular rate. Plan Continue amiodarone, metoprolol once dosages confirmed Telemetry monitoring Hypertension History of hypertension we will continue home meds once dosages confirmed. Hyperlipidemia Continue home atorvastatin chronic steroid use secondary to missed diagnosis of asthma. Patient says that she has become dependent on steroids. Chronic steroid use We will continue with 20 mg prednisone p.o. her home dose. Will monitor closely for acute adrenal insufficiency or need for stress dose steroids. Cardiomyopathy status post CABG History of cardiomyopathy status post two-vessel CABG. AICD in place. Patient on home metoprolol, amiodarone. We will continue home medications once dosages are confirmed. DVT prophylaxis SCDs Full code Case discussed with attending physician Dr. Gray.
[2020-05-03] MEDS ORDERED: Ondansetron PF 4 MG/2 ML Vial IVP PRN (14:48)
[2020-05-03] MEDS ORDERED: Acetaminophen 325 MG TAB PO PRN (14:48)
[2020-05-03] MEDS ORDERED: Ondansetron ODT 4 MG TAB PO PRN (14:48)
[2020-05-03 15:43] VITALS: BMI 30.5
--- NOTE | 2020-05-03 15:48 | RAD ---
EXAM: Two views chest PROVIDED CLINICAL HISTORY: Chest pain COMPARISON: 03/17/2020 FINDINGS: Postoperative changes related to median sternotomy are again seen. Multilead left subclavian AICD dev ice is again seen in place. Cardiac silhouette remains enlarged. Pulmonary vasculature is within normal limits. There is suggestion of slight blunting of the right lateral costophrenic angle likely attributable to mild pleural and parenchymal scarring. Tiny right pleural effusion is difficult to exclude. Lungs otherwise appear clear. Vascular calcifications are seen in the thoracic and visualize d abdominal aorta. No interval change from prior study. IMPRESSION: 1. Slight blunting right lateral costophrenic angle which may represent tiny right pleural effusion v ersus pleural and parenchymal scarring. 2. Cardiomegaly without overt CHF..
[2020-05-03] MEDS: Sodium Chloride 0.9% 1,000 ML IV SCH (15:59)
[2020-05-03 16:34] LABS: Lactic Acid 1.7 mmol/L (0.5-2.2)
[2020-05-03] MEDS: HYDROcodone/Acetaminophen 7.5/325 mg Tablet PO PRN (19:40)
[2020-05-03 20:25] LABS: CKMB 1.8 ng/mL (0-6.6)
[2020-05-03] MEDS: Metoclopramide HCl 10 MG/2 ML VIAL IVP PRN (21:22)
[2020-05-03 23:43] LABS: CKMB 2.1 ng/mL (0-6.6)
[2020-05-04] MEDS: HYDROcodone/Acetaminophen 7.5/325 mg Tablet PO PRN ×5 (00:22→18:25)
[2020-05-04] MEDS: Sodium Chloride 0.9% 1,000 ML IV SCH ×2 (03:56→18:26)
[2020-05-04 06:08] LABS: #Eosinphils 0.2 thou/uL (0.0-0.7); #Lymphocytes 0.7 thou/uL (1.20-3.40); #Monocytes 1.9 thou/uL (0.11-0.59); #Neutrophils 11.6 thou/uL (1.40-6.50); %Basophils 0.1 % (0.0-1.0); %Eosinophils 1.2 % (0.0-10.0); %Lymphocytes 4.5 % (21.0-51.0); %Neutrophils 81.2 % (42.0-75.0); Hemoglobin 10.5 g/dL (12.0-16.0); Mean Corpuscular HGB CONC 33.6 g/dL (32.0-36.0); Mean Corpuscular Hemoglobin 29.4 pg (27.0-31.0); Mean Corpuscular Volume 87.3 fL (78.0-98.0); Mean Platelet Volume 8.1 fL (7.4-10.4); Platelet Count 225 thou/uL (130-400); RBC Distribution Width 14.9 % (11.5-14.5); Red Blood Cell (RBC) Count 3.57 mill/uL (4.20-5.40); White Blood Cell (WBC) Count 14.2 thou/uL (4.8-10.8)
[2020-05-04 06:33] LABS: Anion Gap 17 mmol/L (10-20); BUN (Urea Nitrogen) 12 mg/dL (9.8-20.1); Calc. Creatinine Clearance 75 mL/min (70-130); Calcium 8.9 mg/dL (7.8-10.44); Carbon Dioxide 20 mmol/L (23-31); Chloride 103 mmol/L (98-107); Estimated GFR-MDRD 67; Glucose 66 mg/dL (80-115); Potassium 3.9 mmol/L (3.5-5.1); Sodium 136 mmol/L (136-145)
[2020-05-04 12:11] LABS: SARS-CoV-2 MS2 Positive; SARS-CoV-2 N Gene Negative; SARS-CoV-2 S Gene Negative; SARS-CoV-2 by NAA Not Detected (NotDetected); SARS-CoV-2 orf1ab Negative
[2020-05-04] MEDS ORDERED: cefTRIAXone\\ROCEPHIN 1 GM in Sodium Chloride 0.9% 100 ML IVPB SCH (14:00)
[2020-05-04] MEDS: Metoclopramide HCl 10 MG/2 ML VIAL IVP PRN (14:35)
--- NOTE | 2020-05-04 16:54 | PDOC.HOSPP ---
- Subjective Encounter Date: 05/04/20 Encounter Time: 16:40 Subjective: f/u for N/V and UTI with suspected e. coli on current Rocephin. States feeling better overall and tolerating clear liquids. N/V resolved. - Objective Vital Signs & Weight: Vital Signs (12 hours) Temp Pulse Resp BP Pulse Ox 05/04/20 08:21 98.6 F 121 H 18 128/76 93 L Weight Weight 167 lb 3.2 oz Result Diagrams: 05/04/20 05:00 05/04/20 05:00 Additional Labs: Accuchecks 05/04/20 11:53 POC Glucose 94 Microbiology 05/03/20 14:19 Venous blood - Right Arm Blood Culture - Preliminary Specimen has been received and culture in progress. No Growth to date. 05/03/20 14:19 Venous blood - Left Hand Blood Culture - Preliminary Specimen has been received and culture in progress. No Growth to date. 05/03/20 12:26 Urine Straight Catheter Urine Culture - Preliminary Presumptive Escherichia coli Laboratory Tests 05/03/20 07:56 WBC 16.8 H Hgb 11.4 L Radiology Reviewed by me: Yes (CT abd/pel - no acute process) Hospitalist ROS - Medication Medications: Active Medications Generic Name Dose Route Start Last Admin Trade Name Freq PRN Reason Stop Dose Admin Acetaminophen 650 mg 05/03/20 14:48 05/03/20 15:59 Acetaminophen 325 Mg Tab PO 650 mg Q4H PRN Administration Headache/Fever/Mild Pain (1-3) Hydrocodone Bitart/Acetaminophen 1 tab 05/03/20 19:33 05/04/20 14:48 Hydrocodone/Acetaminophen 7.5/325 Mg Tablet PO 1 tab Q4H PRN Administration Moderate Pain (4-6) Sodium Chloride 1,000 mls @ 75 mls/hr 05/03/20 15:00 05/04/20 03:56 Normal Saline 0.9% IV 1,000 mls .[id number] HARISH Administration Ceftriaxone Sodium 1 gm/ 100 mls @ 200 mls/hr 05/04/20 14:00 05/04/20 14:20 Sodium Chloride IVPB 100 mls 1400 HARISH Administration Metoclopramide HCl 10 mg 05/03/20 14:53 05/04/20 14:35 Metoclopramide Hcl 10 Mg/2 Ml Vial IVP 10 mg Q6H PRN Administration Nausea/Vomiting Ondansetron HCl 4 mg 05/03/20 14:48 05/03/20 19:33 Ondansetron Pf 4 Mg/2 Ml Vial IVP 4 mg Q6H PRN Administration Nausea/Vomiting - Exam General Appearance: NAD, awake alert Eye: PERRL, anicteric sclera ENT: normocephalic atraumatic, no oropharyngeal lesions Neck: supple, symmetric, no JVD, no thyromegaly, no lymphadenopathy Heart: RRR, no gallops, no rubs, normal peripheral pulses Heart - other findings: S1, S2 Respiratory: CTAB, no wheezes, no rales, no ronchi, normal chest expansion Gastrointestinal: soft, non-tender, non-distended, normal bowel sounds, no palpable masses Extremities: no cyanosis, no clubbing, no edema Skin: normal turgor, no lesions Neurological: cranial nerve grossly intact, no new deficit Musculoskeletal: normal tone, normal strength Psychiatric: normal affect, A&O x 3 Hosp A/P (1) E. coli UTI Code(s): N39.0 - URINARY TRACT INFECTION, SITE NOT SPECIFIED; B96.20 - UNSP ESCHERICHIA COLI THE CAUSE OF DISEASES CLASSD ELSWHR Status: Acute Plan: Await final Ucx results with sensitivities, continue Rocephin IV daily (2) Nausea & vomiting Code(s): R11.2 - NAUSEA WITH VOMITING, UNSPECIFIED Status: Acute Plan: Resolving, continue Zofran/Reglan IV PRN, continue IVF's (3) Abdominal pain Code(s): R10.9 - UNSPECIFIED ABDOMINAL PAIN Status: Acute Plan: Suspect secondary to multiple episodes of vomiting/retching, supportive mgmt (4) Chronic a-fib Code(s): I48.20 - CHRONIC ATRIAL FIBRILLATION, UNSPECIFIED Status: Chronic Plan: Rate controlled, s/p Watchman, continue Amiodarone (5) Chronic use of steroids Code(s): NTK9602 - Status: Chronic Plan: Resume home Prednisone - Plan plan discussed w/ family, continue antibiotics, family welfare social work professor, out of bed/ambulate, DVT proph w/SCDs Stable currently Continue IVF's Continue Zofran/Reglan Advance to full liquid diet OOB/ambulate Await final Ucx results AM lab: BMP, CBC Likely home in 24h
[2020-05-04] MEDS ORDERED: Albuterol Sulfate 1.25 MG/3 ML NEB INH PRN (17:41)
[2020-05-05] MEDS: HYDROcodone/Acetaminophen 7.5/325 mg Tablet PO PRN (05:11)
[2020-05-05] MEDS: Sodium Chloride 0.9% 1,000 ML IV SCH (06:32)
[2020-05-05 07:21] VITALS: BP 130/82
[2020-05-05 07:24] VITALS: TEMP 97.1
[2020-05-05] MEDS ORDERED: predniSONE 5 MG TAB PO SCH (08:00)
[2020-05-05] MEDS ORDERED: Amiodarone 200 MG TAB PO SCH (09:00)
[2020-05-05] MEDS ORDERED: Clopidogrel Bisulfate 75 MG TAB PO SCH (09:00)
[2020-05-05] MEDS ORDERED: Cyanocobalamin (Vitamin B-12) 1,000 MCG TAB PO SCH (09:00)
[2020-05-05] MEDS ORDERED: Folic Acid 1 MG TAB PO SCH (09:00)
[2020-05-05] MEDS ORDERED: Potassium Chloride 10 MEQ TAB PO SCH (09:00)
--- NOTE | 2020-05-05 10:39 | DIS ---
DATE OF ADMISSION: 05/04/2020 DATE OF DISCHARGE: 05/05/2020 DISCHARGE DIAGNOSES: 1. Escherichia coli urinary tract infection. 2. Nausea and vomiting, secondarily to Escherichia coli urinary tract infection, resolved. 3. Abdominal pain secondary to Escherichia coli urinary tract infection, resolved. 4. Chronic atrial fibrillation, stable. 5. Chronic prednisone therapy. CONSULTATIONS: None. PERTINENT LABORATORY AND X-RAY FINDINGS: Lactic acid level 1.7. Troponin I ranged between 0.094 and 0.112. Magnesium level 1.6. TSH 2.39. CBC showed a white blood cell count ranged between 14.2 and 16.8, hemoglobin ranged between 10.5 and 11.4. COVID-19 PCR not detected on 05/03/2020. Urine culture dated 05/03/2020, showed greater than 100,000 colonies of Escherichia coli species sensitive to quinolones. Blood cultures x2 dated 05/03/2020 showed no growth to date. CT of the abdomen and pelvis dated 05/03/2020, showed no acute intraabdominal process. Portable chest x-ray dated 05/03/2020 showed slight blunting of the right lateral costophrenic angle. HOSPITAL COURSE: The patient was initially admitted after presenting with nausea and vomiting and abdominal pain. The patient unable to hold any oral intake or liquids and was placed on IV fluids in addition to antiemetics with Zofran and Reglan. Urinalysis was concerning for urine infection with urine culture showing greater than 100,000 colonies of Escherichia coli species. The patient received IV Rocephin throughout the hospital course with plans to transition to Levaquin 500 mg daily to complete antibiotic therapy on an outpatient basis. The patient overall clinically stabilized and had resolution of the nausea and vomiting with IV fluids and general supportive management. I have examined the patient at the time of discharge and discussed followup instructions. The patient verbalized understanding and agreement, ready for discharge on 05/05/2020. DISCHARGE MEDICATIONS: 1. Plavix 75 mg p.o. daily. 2. Colace 100 mg p.o. b.i.d. p.r.n. 3. Klor-Con 10 mEq p.o. daily. 4. Lasix 40 mg p.o. daily. 5. Lipitor 40 mg p.o. daily. 6. [place] 7.5/325 mg 1 tablet p.o. q.6 hours p.r.n. pain. 7. Prednisone 10 mg p.o. daily. 8. Ventolin HFA one puff inhaled q.4 hours p.r.n. 9. Xopenex HFA one puff inhaled q.4 hours p.r.n. 10. Amiodarone 200 mg p.o. daily. 11. Folic acid 1 mg p.o. daily. 12. Levaquin 500 mg p.o. daily x7 days. 13. Multivitamin 1 tablet p.o. daily. 14. Vitamin B12 of 1000 mcg p.o. daily. FOLLOWUP: The patient may follow up with her primary care provider, Dr. Bello Lord. CONDITION ON DISCHARGE: Stable. ACTIVITY: Ad gali. DIET: Heart healthy. CODE STATUS: Full. DISPOSITION: To home on 05/05/2020. Total time preparing and coordinating discharge, 33 minutes. Job ID: [id number]
--- NOTE | 2020-05-07 04:23 | PQF ---
Dear : Manuel Santoro Date 05/07/20 Please exercise your independent, professional judgment in responding to the clarification form. Clinical indicators are provided on the bottom of this form for your review Can you please further clarify the diagnosis of the patient? Please check appropriate box(es): [ ] Sepsis due to E.Coli UTI [ x ] Localized infection without sepsis [ ] Other diagnosis [ ] Unable to determine Physician Signature: Date/Time: For continuity of documentation, please document condition throughout progress notes and discharge summary. Thank You. To be completed by CDI/Coding staff for physician review: Present Clinical Indicators - Signs / Symptoms / Labs Results and Location in Medical Record [x] Presented to the ED for intractable nausea, vomiting, abdominal pain H and P pg.1 [x] Leukocytosis H and P pg.5 [x] WBC: 16.8H, 14.2H Laboratory [x] Urine culture- Final E.Coli Microbiology [x] VS: BP: 146/66, Pulse 103, RR: 20, T: 99.2 ED Provider pg.2 [x] Tachycardic ED Provider pg.2 [x] Abdominal pain 2/2 E.Coli UTI, resolved DS pg.1 [x] Urinalysis was concerning for urine infection with urine culture showing greater than 100,00 colonies of E.Coli species. DS pg.1 [x] Lactic Acid: 05/03=1.7 Laboratory 05/03 [x] Blood culture: no growth at 48 hrs Collected 05/03 Present Risk Factors Results and Location in Medical Record [x] UTI H and P pg.5 [x] 69 years old H and P pg.5 [x] DM H and P pg.1 Present Treatments Results and Location in Medical Record [x] IV Fluids MAR [x] Abdomen Pelvis CT 04/[address] 04/02 [x] Ceftriaxone 1 gm IV MAR [x] Urine Culture Microbiology [x] Blood culture Microbiology CDS/Project Management Specialist Signature: Jason Ewing Phone #: ext [phone] Date 05/07/2020 This is a permanent part of the Medical Record [facility]
--- NOTE | 2020-05-08 16:27 | EKG ---
Test Reason : Blood Pressure : / mmHG Vent. Rate : 104 BPM Atrial Rate : 104 BPM P-R Int : 126 ms QRS Dur : 104 ms QT Int : 390 ms P-R-T Axes : 048 -61 085 degrees QTc Int : 512 ms Electronic ventricular pacemaker Confirmed by DOE CROWE DO ([id number]), editorial assistant ROSELINE REAGAN ([id number]) on 05/08/2020 4:27:05 PM Referred By: Confirmed By:DOE CROWE DO
== END 2020-05-05 11:56 | disposition home health service (06) | DRG 690 ==
LOC: ERS 07:15 → T4-A 13:27 → OBSVTOIN 05-04 14:27
PROVIDERS: ADMIT Internal Medicine; ATTEND Internal Medicine
DX: N39.0 Urinary tract infection, site not specified (principal); I48.20 Chronic atrial fibrillation, unspecified; Z20.828 Contact with and (suspected) exposure to other viral communicable diseases; B96.20 Unspecified Escherichia coli [E. coli] as the cause of diseases classified elsewhere; K21.9 Gastro-esophageal reflux disease without esophagitis; Z79.52 Long term (current) use of systemic steroids; Z95.810 Presence of automatic (implantable) cardiac defibrillator; Z90.49 Acquired absence of other specified parts of digestive tract; Z98.51 Tubal ligation status
CPT/HCPCS: 36415; 36416; 71046; 74177; 80048; 80053; 81003; 81015; 82553; 83605; 83690; 83735; 84443; 84484; 85025; 87040; 87077; 87086; 87186; 87635; 93005; 96376; G0378; J0696; J1200; J2405; J2550; J2765; J3490; J7512; Q0162; Q9967; U0003

== ENCOUNTER 2020-05-12 15:08 | Outpatient (CLI) | payer MEDICARE ==
[2020-05-12 18:11] LABS: #Monocytes 0.8 10x3/uL (0.0-1.1); %Basophils 0.2 % (0.0-2.0); %Eosinophils 0.1 % (0.0-6.0); %Lymphocytes 3.3 % (18.0-47.0); %Monocytes 4.5 % (0.0-10.0); %Neutrophils 90.5 % (40.0-75.0); Hemoglobin 11.9 g/dL (12.0-16.0); Mean Corpuscular HGB CONC 32.7 G/DL (32.0-36.0); Mean Corpuscular Hemoglobin 27.5 PG (27.0-33.0); Mean Corpuscular Volume 84.3 fl (80.0-100.0); Mean Platelet Volume 8.9 fl (7.4-10.4); Platelet Count 580 10x3/uL (130-400); RBC Distribution Width 15.6 % (11.5-14.5); Red Blood Cell (RBC) Count 4.32 10x6/uL (3.90-5.20); White Blood Cell (WBC) Count 16.6 10x3/uL (4.5-11.0)
[2020-05-12 18:51] LABS: PTT 21.9 sec (22.0-33.0); Prothrombin Time 10.4 sec (9.5-12.1)
[2020-05-12 19:02] LABS: ALT (SGPT) 15 U/L (8-55); AST (SGOT) 14 U/L (5-34); Alkaline Phosphatase 112 U/L (40-110); Anion Gap 22 mmol/L (10-20); BUN (Urea Nitrogen) 17 mg/dL (9.8-20.1); Bilirubin, Total 0.4 mg/dL (0.2-1.2); Calc. Creatinine Clearance 0 mL/min (70-130); Calcium 9.6 mg/dL (7.8-10.44); Carbon Dioxide 29 mmol/L (23-31); Cardiac Risk 3.3 (Less than 4.5); Chloride 88 mmol/L (98-107); Cholesterol 181 mg/dl (< 200 Desired); Estimated GFR-MDRD 36; Globulin 2.1 g/dL (2.4-3.5); Glucose 174 mg/dL (80-115); HDL Cholesterol 55 mg/dL (>60 Neg Risk); LDL Cholesterol, Calculated 104 mg/dL; Potassium 5.9 mmol/L (3.5-5.1); Protein, Total 6.1 g/dL (6.0-8.3); Sodium 133 mmol/L (136-145); Triglycerides 109 mg/dL (Less than 150)
[2020-05-12 20:35] LABS: Hemoglobin A1c 6.5 % (4.0-6.0)
[2020-05-13 12:13] LABS: SARS-CoV-2 MS2 Positive; SARS-CoV-2 N Gene Negative; SARS-CoV-2 S Gene Negative; SARS-CoV-2 by NAA Not Detected (NotDetected); SARS-CoV-2 orf1ab Negative
== END 2020-05-12 15:09 | disposition home or self-care (01) ==
LOC: LABBT 15:08
PROVIDERS: ATTEND Internal Medicine Cardiovascular Disease
DX: Z01.818 Encounter for other preprocedural examination (principal); Z01.812 Encounter for preprocedural laboratory examination; I48.91 Unspecified atrial fibrillation; Z20.828 Contact with and (suspected) exposure to other viral communicable diseases
CPT/HCPCS: 80053; 80061; 83036; 85025; 85610; 85730; 93005; U0003; 87635; 93010

== ENCOUNTER 2020-05-14 10:43 | Day surgery (SDC) | payer MEDICARE ==
[2020-05-13 09:22] VITALS: BMI 27.3
[2020-05-14] MEDS ORDERED: Ondansetron PF 4 MG/2 ML Vial ONE (12:43)
[2020-05-14] MEDS ORDERED: PROPOFOL 20 ML ONE (13:22)
--- NOTE | 2020-05-14 16:53 | OP ---
DATE OF PROCEDURE: 05/14/2020 PROCEDURE PERFORMED: Internal electrical cardioversion REASON FOR PROCEDURE: Ms. Humphreys is a 69-year-old lady with history of pulmonary venous isolation procedure on May 28, 2019. The Watchman device placement was also at the same time. Placed on amiodarone for suppression of atrial arrhythmias. She is now here with recurrent atrial arrhythmias. She is off anticoagulants hence adequate sealing af the appendage with a Watchman device demonstrated by ARI in March 2020. DESCRIPTION OF PROCEDURE: The patient received deep sedation by Anesthesia specialist with propofol. After adequate level of sedation achieved, the Medtronic Bi-V ICD was interrogated and a synchronized internal cardioversion shock was delivered at 35 joules. This promptly converted the patient back to sinus rhythm. CONCLUSION: Successful internal cardioversion. PLAN: Continue monitoring for recurrent arrhythmias. Job ID: [id number] MTDD
--- NOTE | 2020-05-19 06:57 | EKG ---
Test Reason : POST CARDIOVERSION Blood Pressure : / mmHG Vent. Rate : 071 BPM Atrial Rate : 071 BPM P-R Int : 164 ms QRS Dur : 116 ms QT Int : 448 ms P-R-T Axes : 057 037 -14 degrees QTc Int : 486 ms Sinus rhythm Incomplete left bundle branch block Prolonged QT Abnormal ECG When compared with ECG of 12-MAY-2020 17:18, (Unconfirmed) Sinus rhythm has replaced Electronic ventricular pacemaker Confirmed by HARRY BROOKS MD ([id number]) on 05/19/2020 6:56:39 AM Referred By: [facility] Confirmed By:HARRY BROOKS MD
== END 2020-05-14 15:10 | disposition home or self-care (01) ==
LOC: CCL 10:43
PROVIDERS: ATTEND Internal Medicine Cardiovascular Disease
PROC: 5A2204Z Restoration of Cardiac Rhythm, Single (ICD-10-PCS; principal; 2020-05-14)
DX: I48.91 Unspecified atrial fibrillation (principal); E78.5 Hyperlipidemia, unspecified; I10 Essential (primary) hypertension; I25.10 Atherosclerotic heart disease of native coronary artery without angina pectoris; K21.9 Gastro-esophageal reflux disease without esophagitis; M19.90 Unspecified osteoarthritis, unspecified site; M81.0 Age-related osteoporosis without current pathological fracture; J44.9 Chronic obstructive pulmonary disease, unspecified; Z79.02 Long term (current) use of antithrombotics/antiplatelets; Z79.52 Long term (current) use of systemic steroids; Z79.899 Other long term (current) drug therapy; Z88.6 Allergy status to analgesic agent; Z95.810 Presence of automatic (implantable) cardiac defibrillator; Z95.818 Presence of other cardiac implants and grafts; Z98.890 Other specified postprocedural states
CPT/HCPCS: 92960; 93005; 93010; J2405; J2704; J7620

== ENCOUNTER 2020-06-18 09:54 | Emergency (ER) | payer MEDICARE ==
--- NOTE | 2020-06-18 11:55 | RAD ---
XR Humerus Lt 2 View STANDARD History: Injury Comparison: None. Findings: Humerus is intact without fracture. Impression: Intact humerus. Dedicated elbow radiographs recommended if there is elbow pain.
--- NOTE | 2020-06-18 11:55 | RAD ---
EXAM: 3 views of the left shoulder HISTORY: Shoulder pain after fall COMPARISON: None FINDINGS: There is no evidence of acute fracture or dislocation. No degenerative changes are present. No soft tissue swelling is seen. A pacemaker is partially visualized in the left chest. IMPRESSION: No evidence of acute osseous abnormality.
== END 2020-06-18 12:04 | disposition home or self-care (01) ==
LOC: ERS 09:54
DX: S40.022A Contusion of left upper arm, initial encounter (principal); J45.909 Unspecified asthma, uncomplicated; E11.9 Type 2 diabetes mellitus without complications; K21.9 Gastro-esophageal reflux disease without esophagitis; I10 Essential (primary) hypertension; M79.7 Fibromyalgia; E78.5 Hyperlipidemia, unspecified; E78.00 Pure hypercholesterolemia, unspecified; Z95.1 Presence of aortocoronary bypass graft; Z79.899 Other long term (current) drug therapy; W19.XXXA Unspecified fall, initial encounter

== ENCOUNTER 2020-12-07 12:38 | Emergency (ER) | payer MEDICARE ==
[2020-12-07 13:48] LABS: #Lymphocytes 0.8 thou/uL (1.20-3.40); #Monocytes 0.4 thou/uL (0.11-0.59); %Basophils 0.1 % (0.0-1.0); %Eosinophils 0.2 % (0.0-10.0); %Monocytes 3.5 % (0.0-10.0); %Neutrophils 89.3 % (42.0-75.0); Hemoglobin 12.6 g/dL (12.0-16.0); Mean Corpuscular HGB CONC 34.4 g/dL (32.0-36.0); Mean Corpuscular Hemoglobin 31.9 pg (27.0-31.0); Mean Corpuscular Volume 92.7 fL (78.0-98.0); Mean Platelet Volume 7.1 fL (7.4-10.4); Platelet Count 331 thou/uL (130-400); Red Blood Cell (RBC) Count 3.95 mill/uL (4.20-5.40); White Blood Cell (WBC) Count 11.2 thou/uL (4.8-10.8)
[2020-12-07 13:57] LABS: INR-International Normal Ratio 0.9; Prothrombin Time 12.6 sec (12.0-14.7)
[2020-12-07 14:06] LABS: Anion Gap 10 mmol/L (10-20); BUN (Urea Nitrogen) 15 mg/dL (9.8-20.1); Calc. Creatinine Clearance 0 mL/min (70-130); Calcium 9.2 mg/dL (7.8-10.44); Carbon Dioxide 31 mmol/L (23-31); Chloride 102 mmol/L (98-107); Glucose 214 mg/dL (83-110); Potassium 4.2 mmol/L (3.5-5.1); Sodium 139 mmol/L (136-145)
== END 2020-12-07 14:27 | disposition home or self-care (01) ==
LOC: ERS 12:38
DX: K08.89 Other specified disorders of teeth and supporting structures (principal); E11.9 Type 2 diabetes mellitus without complications; J45.909 Unspecified asthma, uncomplicated; E78.00 Pure hypercholesterolemia, unspecified; E78.5 Hyperlipidemia, unspecified; K21.9 Gastro-esophageal reflux disease without esophagitis; I10 Essential (primary) hypertension; M79.7 Fibromyalgia
CPT/HCPCS: 36415; 80048; 85025; 85610; 85730; 99283

== ENCOUNTER 2020-12-17 09:47 | Emergency (ER) | payer MEDICARE ==
[2020-12-17] MEDS ORDERED: Morphine 4 MG/ML VIAL ONE (10:40)
[2020-12-17] MEDS ORDERED: Ondansetron ODT 4 MG TAB ONE (10:40)
== END 2020-12-17 11:30 | disposition home or self-care (01) ==
LOC: ERS 09:47
DX: S42.211A Unspecified displaced fracture of surgical neck of right humerus, initial encounter for closed fracture (principal); S22.31XA Fracture of one rib, right side, initial encounter for closed fracture; J45.909 Unspecified asthma, uncomplicated; E11.9 Type 2 diabetes mellitus without complications; E78.5 Hyperlipidemia, unspecified; E78.00 Pure hypercholesterolemia, unspecified; I10 Essential (primary) hypertension; K21.9 Gastro-esophageal reflux disease without esophagitis; I42.9 Cardiomyopathy, unspecified; Z79.52 Long term (current) use of systemic steroids; Z79.899 Other long term (current) drug therapy; W19.XXXA Unspecified fall, initial encounter
CPT/HCPCS: 96372; J2270; Q0162

== ENCOUNTER 2021-04-27 15:13 | Inpatient (IN) | payer MEDICARE ==
[2021-04-27 15:59] LABS: Mean Corpuscular HGB CONC 34.4 g/dL (32.0-36.0); Mean Corpuscular Hemoglobin 31.3 pg (27.0-31.0); Mean Corpuscular Volume 91.1 fL (78.0-98.0); Mean Platelet Volume 7.2 fL (7.4-10.4); Platelet Count 311 thou/uL (130-400); Red Blood Cell (RBC) Count 4.46 mill/uL (4.20-5.40)
[2021-04-27 16:12] LABS: Bilirubin Negative (Negative); Blood, Urine Negative (Negative); Clarity Clear (Clear); Glucose, Urine (Dipstick) >=1000 mg/dL (Negative); Ketone, Urine Negative (Negative); Leukocyte 250 Leu/uL (Negative); Nitrite Negative (Negative); Protein, Urine (Dipstick) 20 mg/dL (Neg-Trace); RBC/HPF 0-3 HPF (0-3); Specific Gravity, Urine 1.022 (1.002-1.036); Squamous Epithelial 0-3 HPF (0-3); Urobilinogen Normal mg/dL (Less than 2); WBC/HPF Greater than 50 HPF (0-3)
[2021-04-27 16:15] LABS: Bacteria/HPF 1+ HPF (None Seen)
[2021-04-27 16:21] LABS: ALT (SGPT) 16 U/L (8-55); AST (SGOT) 21 U/L (5-34); Albumin 3.6 g/dL (3.4-4.8); Alkaline Phosphatase 92 U/L (40-110); Anion Gap 17 mmol/L (10-20); BUN (Urea Nitrogen) 21 mg/dL (9.8-20.1); Bilirubin, Total 1.1 mg/dL (0.2-1.2); Calc. Creatinine Clearance 0 mL/min (70-130); Calcium 9.4 mg/dL (7.8-10.44); Carbon Dioxide 26 mmol/L (23-31); Chloride 96 mmol/L (98-107); Globulin 2.8 g/dL (2.4-3.5); Glucose 232 mg/dL (83-110); Potassium 4.6 mmol/L (3.5-5.1); Protein, Total 6.4 g/dL (5.8-8.1); Sodium 134 mmol/L (136-145)
[2021-04-27 16:25] LABS: Band 8 % (5-11); Lymphocytes 3 % (21-51); MDiff Complete? YES; Monocytes 6 % (0-10); Neutrophil 80 % (42-75); Platelet Morphology Comment Appears Adequate; RBC Morphology Normal; Reactive Lymphocytes 3 % (0-10)
[2021-04-27] MEDS ORDERED: cefTRIAXone\\ROCEPHIN 1 GM VIAL ONE (16:40)
[2021-04-27 16:52] LABS: Magnesium 1.9 mg/dL (1.6-2.6)
[2021-04-27] MEDS ORDERED: Furosemide 20 MG/2 ML VIAL ONE (17:26)
[2021-04-27] MEDS ORDERED: Acetaminophen 325 MG TAB PO PRN (17:51)
[2021-04-27] MEDS ORDERED: Ondansetron PF 4 MG/2 ML Vial IVP PRN (17:51)
[2021-04-27] MEDS ORDERED: Senokot S 8.6-50 MG TAB PO PRN (17:51)
[2021-04-27] MEDS ORDERED: HYDROcodone/Acetaminophen 5/325 mg Tablet PO PRN (17:51)
[2021-04-27] MEDS ORDERED: Bisacodyl 5 MG TAB PO PRN (17:51)
[2021-04-27] MEDS ORDERED: hydrALAZINE 20 MG/ML VIAL SLOW IVP PRN (18:01)
[2021-04-27] MEDS ORDERED: HYDROcodone/Acetaminophen 7.5/325 mg Tablet ONE (18:02)
[2021-04-27] MEDS ORDERED: Melatonin 3 MG TAB PO PRN (18:02)
[2021-04-27] MEDS ORDERED: Non-Formulary Item 1 EACH (Albuterol Sulfate Hfa (Or) 200 PUFF Inh) IN PRN (18:02)
[2021-04-27] MEDS ORDERED: Enoxaparin Sodium 80 MG/0.8 ML SYRINGE ONE (18:19)
[2021-04-27 19:13] LABS: Troponin I 0.052 ng/mL (< 0.028)
[2021-04-27] MEDS ORDERED: Ezetimibe 10 MG TAB PO SCH ×2 (22:57→23:45)
[2021-04-27] MEDS ORDERED: predniSONE 20 MG TAB PO SCH (23:00)
[2021-04-27 23:04] LABS: Troponin I 0.074 ng/mL (< 0.028)
[2021-04-27 23:56] VITALS: BMI 29.1
[2021-04-28] MEDS ORDERED: Amiodarone 200 MG TAB PO SCH ×2 (00:45→09:00)
[2021-04-28] MEDS: HYDROcodone/Acetaminophen 7.5/325 mg Tablet PO PRN ×4 (00:49→21:33)
[2021-04-28] MEDS: Atorvastatin Calcium 40 MG TAB PO SCH ×2 (02:02→21:30)
[2021-04-28] MEDS: Multivit, Therapeutic 1 TAB PO SCH ×2 (02:02→21:31)
[2021-04-28] MEDS ORDERED: Furosemide 20 MG/2 ML VIAL SLOW IVP SCH (06:00)
[2021-04-28 06:56] LABS: #Eosinphils 0.1 thou/uL (0.0-0.7); #Monocytes 0.8 thou/uL (0.11-0.59); #Neutrophils 14.4 thou/uL (1.40-6.50); %Eosinophils 0.3 % (0.0-10.0); %Monocytes 4.8 % (0.0-10.0); %Neutrophils 88.8 % (42.0-75.0); Hemoglobin 13.7 g/dL (12.0-16.0); Mean Corpuscular HGB CONC 34.3 g/dL (32.0-36.0); Mean Corpuscular Hemoglobin 31.1 pg (27.0-31.0); Mean Corpuscular Volume 90.8 fL (78.0-98.0); Mean Platelet Volume 7.4 fL (7.4-10.4); Platelet Count 291 thou/uL (130-400); RBC Distribution Width 12.9 % (11.5-14.5); Red Blood Cell (RBC) Count 4.39 mill/uL (4.20-5.40); White Blood Cell (WBC) Count 16.2 thou/uL (4.8-10.8)
[2021-04-28 07:15] LABS: Anion Gap 17 mmol/L (10-20); BUN (Urea Nitrogen) 18 mg/dL (9.8-20.1); Calc. Creatinine Clearance 72 mL/min (70-130); Carbon Dioxide 28 mmol/L (23-31); Chloride 97 mmol/L (98-107); Glucose 159 mg/dL (83-110); Potassium 3.9 mmol/L (3.5-5.1); Sodium 138 mmol/L (136-145)
[2021-04-28] MEDS ORDERED: Dronedarone HCl 400 MG TAB PO SCH (08:00)
[2021-04-28] MEDS: Enoxaparin Sodium 80 MG/0.8 ML SYRINGE SC SCH ×2 (08:42→21:31)
[2021-04-28] MEDS: Clopidogrel Bisulfate 75 MG TAB PO SCH (08:43)
[2021-04-28] MEDS: predniSONE 20 MG TAB PO SCH ×2 (08:44→21:31)
[2021-04-28] MEDS: Folic Acid 1 MG TAB PO SCH (08:45)
[2021-04-28] MEDS: Acyclovir 800 mg Tablet PO SCH ×4 (08:45→21:37)
[2021-04-28] MEDS: Ferrous Sulfate 325 MG TAB PO SCH (08:45)
[2021-04-28 12:06] LABS: SARS-CoV-2 PCR by NAA DETECTED (NotDetected)
[2021-04-28] MEDS ORDERED: Furosemide 40 MG/4 ML VIAL SLOW IVP SCH (14:00)
[2021-04-28] MEDS ORDERED: cefTRIAXone\\ROCEPHIN 1 GM in Sodium Chloride 0.9% 100 ML IVPB SCH (16:00)
[2021-04-28] MEDS ORDERED: Potassium Chloride 20 MEQ TAB PO SCH (17:45)
[2021-04-28] MEDS: Dronedarone HCl 400 MG TAB PO SCH (17:49)
[2021-04-28] MEDS ORDERED: Enoxaparin Sodium 80 MG/0.8 ML SYRINGE SC SCH (18:00)
[2021-04-28] MEDS ORDERED: Ezetimibe 10 MG TAB PO SCH (21:00)
[2021-04-29 05:02] LABS: #Eosinphils 0.1 thou/uL (0.0-0.7); #Lymphocytes 0.8 thou/uL (1.20-3.40); #Monocytes 0.8 thou/uL (0.11-0.59); %Basophils 0.1 % (0.0-1.0); %Eosinophils 1.1 % (0.0-10.0); %Lymphocytes 7.6 % (21.0-51.0); %Monocytes 7.6 % (0.0-10.0); %Neutrophils 83.6 % (42.0-75.0); Hemoglobin 12.4 g/dL (12.0-16.0); Mean Corpuscular HGB CONC 34.4 g/dL (32.0-36.0); Mean Corpuscular Hemoglobin 31.6 pg (27.0-31.0); Mean Platelet Volume 7.4 fL (7.4-10.4); Platelet Count 254 thou/uL (130-400); RBC Distribution Width 12.8 % (11.5-14.5); Red Blood Cell (RBC) Count 3.92 mill/uL (4.20-5.40); White Blood Cell (WBC) Count 10.8 thou/uL (4.8-10.8)
[2021-04-29 05:37] LABS: ALT (SGPT) 11 U/L (8-55); AST (SGOT) 11 U/L (5-34); Albumin 3.2 g/dL (3.4-4.8); Alkaline Phosphatase 74 U/L (40-110); Anion Gap 16 mmol/L (10-20); BUN (Urea Nitrogen) 24 mg/dL (9.8-20.1); Bilirubin, Total 0.6 mg/dL (0.2-1.2); Calc. Creatinine Clearance 54 mL/min (70-130); Calcium 8.8 mg/dL (7.8-10.44); Carbon Dioxide 27 mmol/L (23-31); Chloride 97 mmol/L (98-107); Globulin 2.1 g/dL (2.4-3.5); Glucose 242 mg/dL (83-110); Potassium 4.4 mmol/L (3.5-5.1); Protein, Total 5.3 g/dL (5.8-8.1); Sodium 136 mmol/L (136-145)
[2021-04-29 05:47] LABS: CKMB 5.4 ng/mL (0-6.6)
[2021-04-29] MEDS ORDERED: Potassium Chloride 20 MEQ TAB PO SCH (06:00)
[2021-04-29] MEDS ORDERED: Furosemide 40 MG/4 ML VIAL SLOW IVP SCH (06:00)
[2021-04-29] MEDS: HYDROcodone/Acetaminophen 7.5/325 mg Tablet PO PRN (07:30)
[2021-04-29] MEDS: predniSONE 20 MG TAB PO SCH (09:26)
[2021-04-29] MEDS: Clopidogrel Bisulfate 75 MG TAB PO SCH (09:27)
[2021-04-29] MEDS: Ferrous Sulfate 325 MG TAB PO SCH (09:27)
[2021-04-29] MEDS: Folic Acid 1 MG TAB PO SCH (09:27)
[2021-04-29] MEDS: Dronedarone HCl 400 MG TAB PO SCH (09:27)
[2021-04-29] MEDS: Acyclovir 800 mg Tablet PO SCH ×2 (09:28→13:09)
[2021-04-29] MEDS: Enoxaparin Sodium 80 MG/0.8 ML SYRINGE SC SCH (09:28)
[2021-04-29] MEDS ORDERED: PROPOFOL 200 MG/20 ML VIAL ONE (12:27)
[2021-04-29] MEDS ORDERED: Apixaban 5 MG TAB PO SCH ×2 (14:26→21:00)
[2021-04-29 16:44] VITALS: BP 130/79; TEMP 98.1
[2021-04-30] MEDS ORDERED: FLU VACC QS2021-22(65YR UP)/PF 240 MCG/0.7 ML SYRINGE IM ONE (09:00)
== END 2021-04-29 16:47 | disposition home or self-care (01) | DRG 177 ==
LOC: ERS 15:13 → 2NO 17:51
PROVIDERS: ADMIT Family Medicine; ATTEND Family Medicine
PROC: 8E0ZXY6 Isolation (ICD-10-PCS; principal; 2021-04-27)
PROC: 5A2204Z Restoration of Cardiac Rhythm, Single (ICD-10-PCS; 2021-04-27)
DX: U07.1 COVID-19 (principal); I26.99 Other pulmonary embolism without acute cor pulmonale; I48.20 Chronic atrial fibrillation, unspecified; N30.00 Acute cystitis without hematuria; L97.921 Non-pressure chronic ulcer of unspecified part of left lower leg limited to breakdown of skin; I42.1 Obstructive hypertrophic cardiomyopathy; Z23 Encounter for immunization; J44.9 Chronic obstructive pulmonary disease, unspecified; E11.9 Type 2 diabetes mellitus without complications; I10 Essential (primary) hypertension; E78.5 Hyperlipidemia, unspecified; M79.7 Fibromyalgia; E78.00 Pure hypercholesterolemia, unspecified; Z95.810 Presence of automatic (implantable) cardiac defibrillator; Z79.01 Long term (current) use of anticoagulants; Z88.6 Allergy status to analgesic agent; Z79.51 Long term (current) use of inhaled steroids; Z79.52 Long term (current) use of systemic steroids; Z79.899 Other long term (current) drug therapy; Z90.49 Acquired absence of other specified parts of digestive tract; Z98.51 Tubal ligation status
CPT/HCPCS: 36415; 71045; 71275; 80048; 80053; 81003; 81015; 82553; 83735; 83880; 84484; 85025; 85379; 92960; 93005; 93010; 93306; 93970; 96365; 96372; 96375; J0696; J1650; J1940; J2704; J3490; J7512; Q9967; U0003; U0005

== ENCOUNTER 2021-06-26 20:09 | Inpatient (IN) | payer MEDICARE ==
[2021-06-26] MEDS ORDERED: methylPREDNISolone Sod Succ/PF 125 MG/2 ML VIAL ONE (21:05)
[2021-06-26] MEDS ORDERED: cefTRIAXone\\ROCEPHIN 1 GM VIAL ONE (21:07)
[2021-06-26 21:15] LABS: #Lymphocytes 0.9 thou/uL (1.20-3.40); #Monocytes 1.1 thou/uL (0.11-0.59); #Neutrophils 7.9 thou/uL (1.40-6.50); %Eosinophils 0.3 % (0.0-10.0); %Lymphocytes 8.7 % (21.0-51.0); %Monocytes 10.7 % (0.0-10.0); %Neutrophils 80.3 % (42.0-75.0); Hemoglobin 13.6 g/dL (12.0-16.0); Mean Corpuscular HGB CONC 35.3 g/dL (32.0-36.0); Mean Corpuscular Hemoglobin 33.2 pg (27.0-31.0); Mean Platelet Volume 6.9 fL (7.4-10.4); Platelet Count 298 thou/uL (130-400); RBC Distribution Width 12.3 % (11.5-14.5); Red Blood Cell (RBC) Count 4.08 mill/uL (4.20-5.40); White Blood Cell (WBC) Count 9.8 thou/uL (4.8-10.8)
[2021-06-26 21:33] LABS: ALT (SGPT) 10 U/L (8-55); AST (SGOT) 11 U/L (5-34); Albumin 4.1 g/dL (3.4-4.8); Alkaline Phosphatase 71 U/L (40-110); Anion Gap 13 mmol/L (10-20); BUN (Urea Nitrogen) 17 mg/dL (9.8-20.1); Bilirubin, Total 0.4 mg/dL (0.2-1.2); Calc. Creatinine Clearance 0 mL/min (70-130); Calcium 9.6 mg/dL (7.8-10.44); Carbon Dioxide 28 mmol/L (23-31); Chloride 97 mmol/L (98-107); Globulin 2.3 g/dL (2.4-3.5); Glucose 198 mg/dL (83-110); Potassium 3.9 mmol/L (3.5-5.1); Protein, Total 6.4 g/dL (5.8-8.1); Sodium 134 mmol/L (136-145)
[2021-06-26 22:26] LABS: SARS-CoV-2 NAA Rapid Test Not Detected (NotDetected)
[2021-06-26] MEDS ORDERED: Azithromycin 500 MG VIAL ONE (22:38)
[2021-06-26 23:06] LABS: INR-International Normal Ratio 1.1; PTT 23.3 sec (22.9-36.1); Prothrombin Time 14.7 sec (12.0-14.7)
[2021-06-26] MEDS ORDERED: Sodium Chloride 0.9% 1,000 ML IV SCH (23:45)
[2021-06-27 00:10] VITALS: BMI 31.0
[2021-06-27] MEDS ORDERED: HYDROcodone/Acetaminophen 7.5/325 mg Tablet PO SCH (00:30)
[2021-06-27 00:56] LABS: Lactic Acid 2.7 mmol/L (0.5-2.2)
[2021-06-27] MEDS ORDERED: methylPREDNISolone Sod Succ/PF 125 MG/2 ML VIAL IVP SCH (03:00)
[2021-06-27] MEDS ORDERED: Dextrose 5% in Water 1,000 ML IV PRN (05:20)
[2021-06-27] MEDS ORDERED: Dextrose 50% Abboject 50 ML SYRINGE SLOW IVP PRN (05:20)
[2021-06-27] MEDS: HumaLOG 300 UNITS/3 ML VIAL SC PRN ×3 (05:37→21:55)
[2021-06-27] MEDS ORDERED: Ondansetron PF 4 MG/2 ML Vial IVP PRN (07:20)
[2021-06-27] MEDS ORDERED: Acetaminophen 325 MG TAB PO PRN (07:20)
[2021-06-27 08:13] LABS: Lactic Acid 3.1 mmol/L (0.5-2.2)
[2021-06-27] MEDS: Furosemide 20 MG TAB PO SCH (08:16)
[2021-06-27] MEDS: Apixaban 5 MG TAB PO SCH ×2 (08:16→20:45)
[2021-06-27] MEDS ORDERED: methylPREDNISolone Sod Succ 40 MG VIAL IVP SCH (09:00)
[2021-06-27] MEDS: methylPREDNISolone Sod Succ 40 MG VIAL IVP SCH ×2 (15:26→21:52)
[2021-06-27] MEDS: Dronedarone HCl 400 MG TAB PO SCH (17:19)
[2021-06-27] MEDS: HYDROcodone/Acetaminophen 7.5/325 mg Tablet PO PRN (20:45)
[2021-06-27] MEDS ORDERED: Ezetimibe 10 MG TAB PO SCH (21:00)
[2021-06-28] MEDS: HYDROcodone/Acetaminophen 7.5/325 mg Tablet PO PRN ×2 (02:13→08:30)
[2021-06-28] MEDS: HumaLOG 300 UNITS/3 ML VIAL SC PRN (04:39)
[2021-06-28] MEDS: methylPREDNISolone Sod Succ 40 MG VIAL IVP SCH (05:50)
[2021-06-28 06:46] LABS: #Lymphocytes 0.5 thou/uL (1.20-3.40); #Monocytes 0.8 thou/uL (0.11-0.59); %Eosinophils 0.1 % (0.0-10.0); %Lymphocytes 3.5 % (21.0-51.0); %Monocytes 5.3 % (0.0-10.0); %Neutrophils 91.1 % (42.0-75.0); Mean Corpuscular HGB CONC 33.5 g/dL (32.0-36.0); Mean Corpuscular Hemoglobin 31.7 pg (27.0-31.0); Mean Corpuscular Volume 94.5 fL (78.0-98.0); Mean Platelet Volume 7.1 fL (7.4-10.4); Platelet Count 277 thou/uL (130-400); RBC Distribution Width 12.2 % (11.5-14.5); Red Blood Cell (RBC) Count 3.79 mill/uL (4.20-5.40); White Blood Cell (WBC) Count 14.2 thou/uL (4.8-10.8)
[2021-06-28 07:08] LABS: Anion Gap 10 mmol/L (10-20); BUN (Urea Nitrogen) 18 mg/dL (9.8-20.1); Calc. Creatinine Clearance 72 mL/min (70-130); Calcium 8.8 mg/dL (7.8-10.44); Carbon Dioxide 27 mmol/L (23-31); Chloride 103 mmol/L (98-107); Glucose 190 mg/dL (83-110); Potassium 3.7 mmol/L (3.5-5.1); Sodium 136 mmol/L (136-145)
[2021-06-28] MEDS: Furosemide 20 MG TAB PO SCH (08:31)
[2021-06-28] MEDS: Apixaban 5 MG TAB PO SCH (08:31)
[2021-06-28] MEDS: Dronedarone HCl 400 MG TAB PO SCH (08:32)
[2021-06-28] MEDS ORDERED: Clopidogrel Bisulfate 75 MG TAB PO SCH (09:00)
[2021-06-28] MEDS ORDERED: Atorvastatin Calcium 40 MG TAB PO SCH (09:00)
[2021-06-28 09:29] VITALS: BP 132/76; TEMP 98.2
[2021-06-29] MEDS ORDERED: FLU VACC QS2021-22(65YR UP)/PF 240 MCG/0.7 ML SYRINGE IM ONE (09:00)
== END 2021-06-28 11:11 | disposition home or self-care (01) | DRG 189 ==
LOC: ERS 20:09 → T4-A 21:54
PROVIDERS: ADMIT Internal Medicine; ATTEND Internal Medicine
DX: J96.01 Acute respiratory failure with hypoxia (principal); J45.901 Unspecified asthma with (acute) exacerbation; J44.1 Chronic obstructive pulmonary disease with (acute) exacerbation; I42.2 Other hypertrophic cardiomyopathy; E87.2 Acidosis; Z20.822 Contact with and (suspected) exposure to COVID-19; Z23 Encounter for immunization; E78.5 Hyperlipidemia, unspecified; I48.91 Unspecified atrial fibrillation; M79.7 Fibromyalgia; M54.2 Cervicalgia; M54.9 Dorsalgia, unspecified; G89.29 Other chronic pain; I25.10 Atherosclerotic heart disease of native coronary artery without angina pectoris; E11.22 Type 2 diabetes mellitus with diabetic chronic kidney disease; N18.30 Chronic kidney disease, stage 3 unspecified; I12.9 Hypertensive chronic kidney disease with stage 1 through stage 4 chronic kidney disease, or unspecified chronic kidney disease; Z86.711 Personal history of pulmonary embolism; Z88.8 Allergy status to other drugs, medicaments and biological substances; Z79.01 Long term (current) use of anticoagulants; Z88.6 Allergy status to analgesic agent; Z79.51 Long term (current) use of inhaled steroids; Z79.52 Long term (current) use of systemic steroids; Z79.899 Other long term (current) drug therapy
CPT/HCPCS: 0240U; 36415; 36416; 71045; 80048; 80053; 83605; 83880; 84484; 85025; 85610; 85730; 87040; 93005; 94640; 94760; 96365; 96367; 96375; J0456; J0696; J1815; J2920; J2930; J7050; J7620

== ENCOUNTER 2021-06-30 17:22 | Observation (INO) | payer MEDICARE ==
[2021-06-30 20:06] LABS: Hemoglobin 13.7 g/dL (12.0-16.0); Mean Corpuscular HGB CONC 35.2 g/dL (32.0-36.0); Mean Corpuscular Hemoglobin 32.4 pg (27.0-31.0); Mean Corpuscular Volume 92.3 fL (78.0-98.0); Mean Platelet Volume 7.1 fL (7.4-10.4); Platelet Count 333 thou/uL (130-400); RBC Distribution Width 12.4 % (11.5-14.5); Red Blood Cell (RBC) Count 4.22 mill/uL (4.20-5.40); White Blood Cell (WBC) Count 14.2 thou/uL (4.8-10.8)
[2021-06-30 20:12] LABS: Bilirubin Negative (Negative); Blood, Urine Negative (Negative); Clarity Clear (Clear); Glucose, Urine (Dipstick) 500 mg/dL (Negative); Ketone, Urine Negative (Negative); Leukocyte Negative Leu/uL (Negative); Nitrite Negative (Negative); Protein, Urine (Dipstick) Negative (Neg-Trace); Specific Gravity, Urine 1.012 (1.002-1.036); Urobilinogen Normal mg/dL (Less than 2)
[2021-06-30 20:22] LABS: Band 1 % (5-11); Lymphocytes 5 % (21-51); MDiff Complete? YES; Metamyelocyte 1 % (0-0); Monocytes 4 % (0-10); Neutrophil 88 % (42-75); Reactive Lymphocytes 1 % (0-10)
[2021-06-30 20:29] LABS: ALT (SGPT) 12 U/L (8-55); AST (SGOT) 11 U/L (5-34); Albumin 3.8 g/dL (3.4-4.8); Alkaline Phosphatase 86 U/L (40-110); Anion Gap 13 mmol/L (10-20); BUN (Urea Nitrogen) 20 mg/dL (9.8-20.1); Bilirubin, Total 0.5 mg/dL (0.2-1.2); Calc. Creatinine Clearance 0 mL/min (70-130); Carbon Dioxide 33 mmol/L (23-31); Chloride 92 mmol/L (98-107); Globulin 2.2 g/dL (2.4-3.5); Glucose 199 mg/dL (83-110); Lipase 20 U/L (8-78); Magnesium 1.7 mg/dL (1.6-2.6); Potassium 3.9 mmol/L (3.5-5.1); Sodium 134 mmol/L (136-145)
[2021-06-30] MEDS ORDERED: Furosemide 40 MG/4 ML VIAL ONE (21:09)
[2021-06-30] MEDS ORDERED: Morphine 4 MG/ML VIAL ONE (23:13)
[2021-06-30] MEDS ORDERED: Levofloxacin 500 mg/D5W 100 ml Premix Bag ONE (23:40)
[2021-06-30] MEDS ORDERED: methylPREDNISolone Sod Succ/PF 125 MG/2 ML VIAL ONE (23:40)
[2021-07-01 00:21] LABS: Troponin I Less than 0.010 ng/mL (< 0.028)
[2021-07-01] MEDS ORDERED: Morphine 4 MG/ML VIAL SLOW IVP SCH (01:47)
[2021-07-01] MEDS ORDERED: Morphine 4 MG/ML VIAL ONE (02:01)
[2021-07-01 04:39] LABS: Anion Gap 16 mmol/L (10-20); BUN (Urea Nitrogen) 19 mg/dL (9.8-20.1); Calc. Creatinine Clearance 0 mL/min (70-130); Calcium 9.2 mg/dL (7.8-10.44); Carbon Dioxide 28 mmol/L (23-31); Chloride 94 mmol/L (98-107); Glucose 214 mg/dL (83-110); Magnesium 1.6 mg/dL (1.6-2.6); Sodium 134 mmol/L (136-145)
[2021-07-01] MEDS ORDERED: Magnesium 2 GM/50 ML BAG (IN WATER) ONE ×2 (05:05→05:06)
[2021-07-01] MEDS ORDERED: Magnesium 2 GM/50 ML 2 GM in Premix Bag 1 BAG IVPB SCH (05:30)
[2021-07-01 07:08] VITALS: BMI 29.7
[2021-07-01 09:46] LABS: SARS-CoV-2 NAA Rapid Test Not Detected (NotDetected)
[2021-07-01] MEDS ORDERED: Nitroglycerin 0.4 MG TAB (25 Tab Bottle) SL PRN (11:29)
[2021-07-01] MEDS ORDERED: Acetaminophen 325 MG TAB PO PRN (11:30)
[2021-07-01] MEDS ORDERED: Insulin Regular 300 UNITS/3 ML VIAL SC PRN (11:40)
[2021-07-01] MEDS ORDERED: Dextrose 50% Abboject 50 ML SYRINGE SLOW IVP PRN (11:40)
[2021-07-01] MEDS ORDERED: Dextrose 5% in Water 1,000 ML IV PRN (11:40)
[2021-07-01] MEDS: HYDROcodone/Acetaminophen 7.5/325 mg Tablet PO PRN ×2 (12:46→19:48)
[2021-07-01] MEDS: methylPREDNISolone Sod Succ 40 MG VIAL IVP SCH ×3 (12:46→19:50)
[2021-07-01] MEDS: Apixaban 5 MG TAB PO SCH ×2 (12:46→19:50)
[2021-07-01] MEDS: Dronedarone HCl 400 MG TAB PO SCH (17:38)
[2021-07-01] MEDS ORDERED: Furosemide 40 MG/4 ML VIAL SLOW IVP SCH (21:00)
[2021-07-01] MEDS ORDERED: Magnesium Sulfate 4 GM in Sodium Chloride 0.9% 250 ML 250 ML IVPB SCH (22:00)
[2021-07-01] MEDS: HumaLOG 300 UNITS/3 ML VIAL SC PRN (22:23)
[2021-07-02] MEDS: HYDROcodone/Acetaminophen 7.5/325 mg Tablet PO PRN ×4 (01:28→18:48)
[2021-07-02 05:41] LABS: #Lymphocytes 0.5 thou/uL (1.20-3.40); #Monocytes 0.7 thou/uL (0.11-0.59); #Neutrophils 13.9 thou/uL (1.40-6.50); %Eosinophils 0.2 % (0.0-10.0); %Lymphocytes 3.2 % (21.0-51.0); %Monocytes 4.9 % (0.0-10.0); %Neutrophils 91.7 % (42.0-75.0); Hemoglobin 13.1 g/dL (12.0-16.0); Mean Corpuscular HGB CONC 33.8 g/dL (32.0-36.0); Mean Corpuscular Hemoglobin 31.2 pg (27.0-31.0); Mean Corpuscular Volume 92.4 fL (78.0-98.0); Mean Platelet Volume 7.2 fL (7.4-10.4); Platelet Count 324 thou/uL (130-400); Red Blood Cell (RBC) Count 4.21 mill/uL (4.20-5.40); White Blood Cell (WBC) Count 15.1 thou/uL (4.8-10.8)
[2021-07-02 06:00] LABS: Anion Gap 11 mmol/L (10-20); BUN (Urea Nitrogen) 27 mg/dL (9.8-20.1); Calc. Creatinine Clearance 61 mL/min (70-130); Calcium 9.2 mg/dL (7.8-10.44); Carbon Dioxide 32 mmol/L (23-31); Chloride 94 mmol/L (98-107); Glucose 280 mg/dL (83-110); Magnesium 3.2 mg/dL (1.6-2.6); Potassium 3.9 mmol/L (3.5-5.1); Sodium 133 mmol/L (136-145)
[2021-07-02] MEDS: HumaLOG 300 UNITS/3 ML VIAL SC PRN ×3 (06:14→20:48)
[2021-07-02] MEDS: methylPREDNISolone Sod Succ 40 MG VIAL IVP SCH (06:14)
[2021-07-02] MEDS: predniSONE 20 MG TAB PO SCH (08:25)
[2021-07-02] MEDS: Dronedarone HCl 400 MG TAB PO SCH ×2 (08:25→16:16)
[2021-07-02] MEDS: Apixaban 5 MG TAB PO SCH ×2 (08:26→20:03)
[2021-07-02] MEDS: Clopidogrel Bisulfate 75 MG TAB PO SCH (08:26)
[2021-07-02] MEDS: Ezetimibe 10 MG TAB PO SCH (08:26)
[2021-07-02] MEDS: Potassium Chloride 20 MEQ TAB PO SCH (08:26)
[2021-07-02] MEDS ORDERED: Furosemide 40 MG/4 ML VIAL SLOW IVP SCH (09:00)
[2021-07-02] MEDS: Furosemide 40 MG/4 ML VIAL SLOW IVP SCH (14:10)
[2021-07-02] MEDS ORDERED: Lantus 1000 UNITS/10 ML VIAL SC SCH (16:30)
[2021-07-03] MEDS: HYDROcodone/Acetaminophen 7.5/325 mg Tablet PO PRN ×4 (00:12→15:56)
[2021-07-03] MEDS: Furosemide 40 MG/4 ML VIAL SLOW IVP SCH (06:00)
[2021-07-03 06:33] LABS: Anion Gap 11 mmol/L (10-20); BUN (Urea Nitrogen) 29 mg/dL (9.8-20.1); Calc. Creatinine Clearance 59 mL/min (70-130); Calcium 9.2 mg/dL (7.8-10.44); Carbon Dioxide 31 mmol/L (23-31); Chloride 95 mmol/L (98-107); Glucose 133 mg/dL (83-110); Potassium 3.7 mmol/L (3.5-5.1); Sodium 133 mmol/L (136-145)
[2021-07-03] MEDS: predniSONE 20 MG TAB PO SCH (09:55)
[2021-07-03] MEDS: Dronedarone HCl 400 MG TAB PO SCH ×2 (09:55→15:56)
[2021-07-03] MEDS: Clopidogrel Bisulfate 75 MG TAB PO SCH (09:56)
[2021-07-03] MEDS: Ezetimibe 10 MG TAB PO SCH (09:56)
[2021-07-03] MEDS: Potassium Chloride 20 MEQ TAB PO SCH (09:56)
[2021-07-03] MEDS: Apixaban 5 MG TAB PO SCH (09:56)
[2021-07-03] MEDS ORDERED: Potassium Chloride 20 MEQ TAB PO SCH (12:20)
[2021-07-03] MEDS ORDERED: Lantus 1000 UNITS/10 ML VIAL SC SCH (13:30)
[2021-07-03 16:21] VITALS: BP 122/69; TEMP 97.6
[2021-07-04] MEDS ORDERED: Furosemide 40 MG TAB PO SCH (07:30)
== END 2021-07-03 16:23 | disposition home or self-care (01) ==
LOC: ERS 17:22 → ERHOLD 22:58 → 2SW 07-01 06:44
PROVIDERS: ADMIT Internal Medicine; ATTEND Internal Medicine
DX: J44.1 Chronic obstructive pulmonary disease with (acute) exacerbation (principal); J96.01 Acute respiratory failure with hypoxia; I50.33 Acute on chronic diastolic (congestive) heart failure; E87.1 Hypo-osmolality and hyponatremia; I48.20 Chronic atrial fibrillation, unspecified; E11.65 Type 2 diabetes mellitus with hyperglycemia; K21.9 Gastro-esophageal reflux disease without esophagitis; E78.5 Hyperlipidemia, unspecified; E78.00 Pure hypercholesterolemia, unspecified; Z20.822 Contact with and (suspected) exposure to COVID-19; I42.2 Other hypertrophic cardiomyopathy; G89.29 Other chronic pain; M54.2 Cervicalgia; M54.9 Dorsalgia, unspecified; I25.10 Atherosclerotic heart disease of native coronary artery without angina pectoris; E87.70 Fluid overload, unspecified; M79.7 Fibromyalgia; Z79.01 Long term (current) use of anticoagulants; Z79.02 Long term (current) use of antithrombotics/antiplatelets; Z79.899 Other long term (current) drug therapy; Z88.6 Allergy status to analgesic agent; Z95.1 Presence of aortocoronary bypass graft; Z95.810 Presence of automatic (implantable) cardiac defibrillator
CPT/HCPCS: 0240U; 71045; 80048 ×3; 80053; 81003; 82962 ×3; 83690; 83735 ×3; 83880; 84484 ×3; 85025 ×2; 93005 ×2; 93306; 94640 ×4; 94760 ×3; 96365; 96366; 96367; 96375 ×2; 96376 ×3; 97116; 97139 ×3; 99285; G0378 ×5; 36415; 36416; J1815; J1940; J1956; J2270; J2920; J2930; J3475; J7050; J7512; J7620

== ENCOUNTER 2021-07-08 09:26 | Outpatient (CLI) | payer MEDICARE ==
[2021-07-08] MEDS ORDERED: Iopamidol 370 76% 100 ML VIAL ONE (10:07)
== END 2021-07-08 09:27 | disposition home or self-care (01) ==
LOC: CT 09:26
PROVIDERS: ATTEND Internal Medicine Critical Care Medicine
DX: R91.8 Other nonspecific abnormal finding of lung field (principal); J98.11 Atelectasis
CPT/HCPCS: 71260; Q9967

== ENCOUNTER 2021-07-19 09:19 | Outpatient (CLI) | payer MEDICARE | END 2021-07-19 09:20 | disposition home or self-care (01) | LOC: NM 09:19 | PROVIDERS: ATTEND Internal Medicine Critical Care Medicine | DX: R07.9 Chest pain, unspecified (principal); Z87.81 Personal history of (healed) traumatic fracture | CPT/HCPCS: 78306; A9503 ==

== ENCOUNTER 2021-09-02 15:53 | Outpatient (CLI) | payer MEDICARE ==
[2021-09-02 16:45] LABS: Hemoglobin 13.4 g/dL (12.0-15.5); Mean Corpuscular HGB CONC 34.1 g/dL (32.0-36.0); Mean Corpuscular Hemoglobin 30.2 pg (27.0-33.0); Mean Corpuscular Volume 88.7 fl (81.6-98.3); Mean Platelet Volume 9.3 fl (7.4-10.4); Platelet Count 347 10x3/uL (150-450); RBC Distribution Width 12.9 % (11.5-14.5); Red Blood Cell (RBC) Count 4.43 10x6/uL (3.90-5.03); White Blood Cell (WBC) Count 13.5 10x3/uL (3.5-10.5)
[2021-09-02 17:11] LABS: INR-International Normal Ratio 0.9; Prothrombin Time 10.2 sec (9.5-12.1)
[2021-09-02 17:13] LABS: Anion Gap 20 mmol/L (10-20); BUN (Urea Nitrogen) 17 mg/dL (9.8-20.1); Calc. Creatinine Clearance 0 mL/min (70-130); Calcium 9.2 mg/dL (7.8-10.44); Carbon Dioxide 28 mmol/L (23-31); Chloride 91 mmol/L (98-107); Glucose 189 mg/dL (83-110); Potassium 4.1 mmol/L (3.5-5.1); Sodium 135 mmol/L (136-145)
[2021-09-03 18:18] LABS: SARS-CoV-2 PCR by NAA Not Detected (NotDetected)
== END 2021-09-02 15:54 | disposition home or self-care (01) ==
LOC: LABBT 15:53
PROVIDERS: ATTEND Internal Medicine Cardiovascular Disease
DX: Z01.812 Encounter for preprocedural laboratory examination (principal); I48.19 Other persistent atrial fibrillation; Z20.822 Contact with and (suspected) exposure to COVID-19
CPT/HCPCS: 80048; 85027; 85610; 85730; U0003; U0005

== ENCOUNTER 2021-09-05 08:24 | Day surgery (SDC) | payer MEDICARE ==
[2021-09-02 10:27] VITALS: BMI 26.0
[2021-09-05] MEDS ORDERED: PROPOFOL 200 MG/20 ML VIAL ONE (09:56)
== END 2021-09-05 10:50 | disposition home or self-care (01) ==
LOC: SDC 08:24
PROVIDERS: ATTEND Internal Medicine Cardiovascular Disease
PROC: 5A2204Z Restoration of Cardiac Rhythm, Single (ICD-10-PCS; principal; 2021-09-05)
DX: I48.19 Other persistent atrial fibrillation (principal); I44.7 Left bundle-branch block, unspecified; E78.5 Hyperlipidemia, unspecified; I10 Essential (primary) hypertension; I25.10 Atherosclerotic heart disease of native coronary artery without angina pectoris; K21.9 Gastro-esophageal reflux disease without esophagitis; M19.90 Unspecified osteoarthritis, unspecified site; M81.0 Age-related osteoporosis without current pathological fracture; G89.29 Other chronic pain; M54.9 Dorsalgia, unspecified; M79.7 Fibromyalgia; J44.9 Chronic obstructive pulmonary disease, unspecified; Z79.02 Long term (current) use of antithrombotics/antiplatelets; Z79.52 Long term (current) use of systemic steroids; Z79.84 Long term (current) use of oral hypoglycemic drugs; Z79.899 Other long term (current) drug therapy; Z88.6 Allergy status to analgesic agent; Z91.048 Other nonmedicinal substance allergy status; Z95.1 Presence of aortocoronary bypass graft; Z95.810 Presence of automatic (implantable) cardiac defibrillator; Z95.818 Presence of other cardiac implants and grafts
CPT/HCPCS: 92960; J2704

== ENCOUNTER 2021-10-27 13:58 | Outpatient (CLI) | payer MEDICARE | END 2021-10-27 13:59 | disposition home or self-care (01) | LOC: BICMAMMO 13:58 | PROVIDERS: ATTEND Internal Medicine Rheumatology | DX: M81.0 Age-related osteoporosis without current pathological fracture (principal) | CPT/HCPCS: 77080 ==

== ENCOUNTER 2021-11-04 09:11 | Outpatient (CLI) | payer MEDICARE ==
[2021-11-04 11:00] LABS: Hemoglobin 12.5 g/dL (12.0-15.5); Mean Corpuscular HGB CONC 33.9 g/dL (32.0-36.0); Mean Corpuscular Hemoglobin 30.3 pg (27.0-33.0); Mean Corpuscular Volume 89.6 fl (81.6-98.3); Mean Platelet Volume 9.2 fl (7.4-10.4); Platelet Count 366 10x3/uL (150-450); RBC Distribution Width 13.1 % (11.5-14.5); Red Blood Cell (RBC) Count 4.12 10x6/uL (3.90-5.03)
[2021-11-04 11:17] LABS: INR-International Normal Ratio 0.9; PTT 21.1 sec (22.0-33.0)
[2021-11-04 11:23] LABS: Anion Gap 15 mmol/L (10-20); BUN (Urea Nitrogen) 23 mg/dL (9.8-20.1); Calc. Creatinine Clearance 0 mL/min (70-130); Calcium 9.1 mg/dL (7.8-10.44); Carbon Dioxide 31 mmol/L (23-31); Chloride 96 mmol/L (98-107); Glucose 117 mg/dL (83-110); Potassium 3.9 mmol/L (3.5-5.1); Sodium 138 mmol/L (136-145)
[2021-11-04 19:02] LABS: SARS-CoV-2 PCR by NAA Not Detected (NotDetected)
== END 2021-11-04 09:12 | disposition home or self-care (01) ==
LOC: LABBT 09:11
PROVIDERS: ATTEND Internal Medicine Cardiovascular Disease
DX: Z01.812 Encounter for preprocedural laboratory examination (principal); Z20.822 Contact with and (suspected) exposure to COVID-19
CPT/HCPCS: 80048; 85027; 85610; 85730; U0003; U0005

== ENCOUNTER 2021-11-07 08:47 | Day surgery (SDC) | payer MEDICARE ==
[2021-11-04 12:33] VITALS: BMI 26.5
[2021-11-07] MEDS ORDERED: PROPOFOL 200 MG/20 ML VIAL ONE (11:38)
== END 2021-11-07 13:12 | disposition home or self-care (01) ==
LOC: SDC 08:47
PROVIDERS: ATTEND Internal Medicine Cardiovascular Disease
PROC: 5A2204Z Restoration of Cardiac Rhythm, Single (ICD-10-PCS; principal; 2021-11-07)
DX: I48.19 Other persistent atrial fibrillation (principal); I42.1 Obstructive hypertrophic cardiomyopathy; I44.7 Left bundle-branch block, unspecified; I47.2 Ventricular tachycardia; I25.10 Atherosclerotic heart disease of native coronary artery without angina pectoris; I11.0 Hypertensive heart disease with heart failure; I50.42 Chronic combined systolic (congestive) and diastolic (congestive) heart failure; E78.5 Hyperlipidemia, unspecified; K21.9 Gastro-esophageal reflux disease without esophagitis; M19.90 Unspecified osteoarthritis, unspecified site; J44.9 Chronic obstructive pulmonary disease, unspecified; E11.9 Type 2 diabetes mellitus without complications; Z86.16 Personal history of COVID-19; Z86.73 Personal history of transient ischemic attack (TIA), and cerebral infarction without residual deficits; Z79.02 Long term (current) use of antithrombotics/antiplatelets; Z79.52 Long term (current) use of systemic steroids; Z79.899 Other long term (current) drug therapy; Z88.6 Allergy status to analgesic agent; Z88.8 Allergy status to other drugs, medicaments and biological substances; Z91.048 Other nonmedicinal substance allergy status; Z95.1 Presence of aortocoronary bypass graft; Z95.810 Presence of automatic (implantable) cardiac defibrillator; Z95.818 Presence of other cardiac implants and grafts
CPT/HCPCS: 92960; J2704

== ENCOUNTER 2022-01-05 19:41 | Emergency (ER) | payer MEDICARE ==
[2022-01-05] MEDS ORDERED: Lidocaine 4% Cream 5 GM TUBE w/ Tegaderm ONE (19:54)
== END 2022-01-05 21:58 | disposition home or self-care (01) ==
LOC: ERS 19:41
DX: S61.411A Laceration without foreign body of right hand, initial encounter (principal); E11.9 Type 2 diabetes mellitus without complications; K21.9 Gastro-esophageal reflux disease without esophagitis; I10 Essential (primary) hypertension; W26.8XXA Contact with other sharp object(s), not elsewhere classified, initial encounter
CPT/HCPCS: 99282

== ENCOUNTER 2022-05-31 13:41 | Inpatient (IN) | payer MEDICARE ==
[2022-05-31] MEDS ORDERED: Cefepime 2 GM VIAL ONE (15:04)
[2022-05-31 15:05] LABS: Hemoglobin 14.7 g/dL (12.0-16.0); Mean Corpuscular HGB CONC 34.1 g/dL (32.0-36.0); Mean Corpuscular Volume 90.8 fl (78.0-98.0); Mean Platelet Volume 7.7 fL (7.4-10.4); Platelet Count 311 10x3/uL (130-400); RBC Distribution Width 13.6 % (11.5-14.5); Red Blood Cell (RBC) Count 4.76 mill/uL (4.20-5.40); White Blood Cell (WBC) Count 17.5 10x3/uL (4.8-10.8)
[2022-05-31 15:19] LABS: ALT (SGPT) 38 U/L (8-55); AST (SGOT) 32 U/L (5-34); Albumin 3.8 g/dL (3.4-4.8); Alkaline Phosphatase 77 U/L (40-110); Anion Gap 18 mmol/L (10-20); BUN (Urea Nitrogen) 23 mg/dL (9.8-20.1); Bilirubin, Total 1.5 mg/dL (0.2-1.2); Calc. Creatinine Clearance 0 mL/min (70-130); Calcium 9.5 mg/dL (7.8-10.44); Carbon Dioxide 27 mmol/L (23-31); Chloride 89 mmol/L (98-107); Estimated GFR 34; Globulin 2.5 g/dL (2.4-3.5); Potassium 5.3 mmol/L (3.5-5.1); Protein, Total 6.3 g/dL (5.8-8.1); Sodium 129 mmol/L (136-145)
[2022-05-31 15:26] LABS: Glucose 648 mg/dL (83-110)
[2022-05-31 15:30] LABS: Band 5 % (5-11); Lymphocytes 1 % (21-51); MDiff Complete? YES; Monocytes 4 % (0-10); Neutrophil 89 % (42-75); Platelet Morphology Comment Appears Adequate; RBC Morphology Normal; Reactive Lymphocytes 1 % (0-10)
[2022-05-31] MEDS ORDERED: Vancomycin HCl 1.5 GM in Sodium Chloride 0.9% 250 ML 300 ML IVPB SCH (15:30)
[2022-05-31 16:15] LABS: Bilirubin Negative (Negative); Blood, Urine Negative (Negative); Clarity Clear (Clear); Glucose, Urine (Dipstick) Greater than 1000 mg/dL (Negative); Ketone, Urine Negative (Negative); Leukocyte Negative Leu/uL (Negative); Nitrite Negative (Negative); Protein, Urine (Dipstick) Negative (Neg-Trace); Specific Gravity, Urine 1.022 (1.002-1.036); Urobilinogen Normal mg/dL (Less than 2)
[2022-05-31] MEDS ORDERED: Acetaminophen 325 MG TAB PO PRN (17:22)
[2022-05-31] MEDS ORDERED: Dextrose 5% in Water 1,000 ML IV PRN (17:27)
[2022-05-31] MEDS ORDERED: Dextrose 50% Abboject 50 ML SYRINGE SLOW IVP PRN (17:27)
[2022-05-31] MEDS ORDERED: Amitriptyline HCl 25 MG TAB PO PRN (17:28)
[2022-05-31] MEDS ORDERED: Insulin Regular 300 UNITS/3 ML VIAL SC SCH (18:15)
[2022-05-31 20:48] VITALS: BMI 25.7
[2022-05-31] MEDS ORDERED: Insulin Glargine 30 UNITS/0.3 ML VIAL SC SCH (21:00)
[2022-05-31 21:36] LABS: Anion Gap 13 mmol/L (10-20); BUN (Urea Nitrogen) 22 mg/dL (9.8-20.1); Calc. Creatinine Clearance 47 mL/min (70-130); Calcium 8.8 mg/dL (7.8-10.44); Carbon Dioxide 29 mmol/L (23-31); Chloride 96 mmol/L (98-107); Estimated GFR 50; Glucose 333 mg/dL (83-110); Sodium 134 mmol/L (136-145)
[2022-05-31] MEDS ORDERED: HumaLOG 300 UNITS/3 ML VIAL SC PRN (22:21)
[2022-05-31] MEDS: Famotidine 20 MG TAB PO SCH (22:23)
[2022-05-31] MEDS: Cefepime 1 GM in Sodium Chloride 0.9% 100 ML IVPB SCH (22:23)
[2022-06-01 06:54] LABS: #Basophils 0.1 thou/uL (0.0-0.2); #Eosinphils 0.1 thou/uL (0.0-0.7); #Lymphocytes 1.4 thou/uL (1.20-3.40); #Neutrophils 8.7 thou/uL (1.40-6.50); %Basophils 0.5 % (0.0-1.0); %Eosinophils 0.8 % (0.0-10.0); %Lymphocytes 12.5 % (21.0-51.0); %Monocytes 8.5 % (0.0-10.0); %Neutrophils 77.7 % (42.0-75.0); Hemoglobin 12.7 g/dL (12.0-16.0); Mean Corpuscular HGB CONC 34.1 g/dL (32.0-36.0); Mean Corpuscular Hemoglobin 31.1 pg (27.0-31.0); Mean Corpuscular Volume 91.3 fl (78.0-98.0); Mean Platelet Volume 7.2 fL (7.4-10.4); Platelet Count 240 10x3/uL (130-400); RBC Distribution Width 13.5 % (11.5-14.5); Red Blood Cell (RBC) Count 4.08 mill/uL (4.20-5.40); White Blood Cell (WBC) Count 11.2 10x3/uL (4.8-10.8)
[2022-06-01 07:08] LABS: Anion Gap 9 mmol/L (10-20); BUN (Urea Nitrogen) 17 mg/dL (9.8-20.1); Calc. Creatinine Clearance 75 mL/min (70-130); Calcium 8.5 mg/dL (7.8-10.44); Carbon Dioxide 29 mmol/L (23-31); Chloride 101 mmol/L (98-107); Estimated GFR 87; Glucose 90 mg/dL (83-110); Potassium 3.7 mmol/L (3.5-5.1); Sodium 135 mmol/L (136-145)
[2022-06-01] MEDS ORDERED: Dronedarone HCl 400 MG TAB PO SCH (08:00)
[2022-06-01] MEDS: predniSONE 20 MG TAB PO SCH (08:35)
[2022-06-01] MEDS: Cefepime 1 GM in Sodium Chloride 0.9% 100 ML IVPB SCH (08:35)
[2022-06-01] MEDS: Famotidine 20 MG TAB PO SCH (08:35)
[2022-06-01] MEDS: Clopidogrel Bisulfate 75 MG TAB PO SCH (08:35)
[2022-06-01] MEDS ORDERED: Vancomycin HCl 1 GM in Sodium Chloride 0.9% 250 ML 250 ML IVPB SCH (09:00)
[2022-06-01] MEDS ORDERED: Enoxaparin Sodium 30 MG/0.3 ML SYRINGE SC SCH (09:00)
[2022-06-01] MEDS: HumaLOG 300 UNITS/3 ML VIAL SC PRN ×2 (12:31→17:12)
[2022-06-01] MEDS ORDERED: Vancomycin 1 GM in Premix Bag 1 BAG IVPB SCH (16:00)
[2022-06-01] MEDS: metFORMIN 500 MG TAB PO SCH (17:11)
[2022-06-01] MEDS ORDERED: Insulin Glargine 30 UNITS/0.3 ML VIAL SC SCH (21:00)
[2022-06-01] MEDS: Transdermal Patch Removal TOP SCH (22:20)
[2022-06-01] MEDS: Clotrimazole 2% 3 Day Vag Cr 22.2 GM TUBE VAG SCH (22:21)
[2022-06-01] MEDS: Minocycline HCl 50 MG CAP PO SCH (22:26)
[2022-06-01] MEDS: valACYclovir 500 MG TAB PO SCH (22:26)
[2022-06-02 06:49] LABS: Anion Gap 10 mmol/L (10-20); BUN (Urea Nitrogen) 23 mg/dL (9.8-20.1); Calc. Creatinine Clearance 61 mL/min (70-130); Calcium 8.9 mg/dL (7.8-10.44); Carbon Dioxide 25 mmol/L (23-31); Chloride 107 mmol/L (98-107); Estimated GFR 69; Glucose 104 mg/dL (83-110); Potassium 4.2 mmol/L (3.5-5.1); Sodium 138 mmol/L (136-145)
[2022-06-02] MEDS ORDERED: Promethazine HCl 12.5 MG in Sodium Chloride 0.9% 50 ML IVPB PRN (08:55)
[2022-06-02] MEDS ORDERED: Acetaminophen 500 MG TAB PO PRN (08:55)
[2022-06-02] MEDS ORDERED: Cepastat Lozenges 1 LOZ PO PRN (08:55)
[2022-06-02] MEDS ORDERED: Sodium Chloride 0.65% Nasal 44 ML BOT EA NARE PRN (08:55)
[2022-06-02] MEDS ORDERED: Artificial Tear Sol 15 ML BOT EA EYE PRN (08:55)
[2022-06-02] MEDS ORDERED: Moisturizing Cream (Eucerin) 113 GM JAR TOP PRN (08:55)
[2022-06-02] MEDS: Minocycline HCl 50 MG CAP PO SCH ×2 (09:31→20:20)
[2022-06-02] MEDS: Polyethylene Glycol 3350 17 GM Packet PO SCH (09:31)
[2022-06-02] MEDS: Lidocaine 5% Patch TD SCH (09:31)
[2022-06-02] MEDS: metFORMIN 500 MG TAB PO SCH ×2 (09:32→16:42)
[2022-06-02] MEDS: Ezetimibe 10 MG TAB PO SCH (09:32)
[2022-06-02] MEDS: predniSONE 20 MG TAB PO SCH (09:32)
[2022-06-02] MEDS: Enoxaparin Sodium 40 MG/0.4 ML SYRINGE SC SCH (09:32)
[2022-06-02] MEDS: Rosuvastatin 20 MG TAB PO SCH (09:32)
[2022-06-02] MEDS: Clopidogrel Bisulfate 75 MG TAB PO SCH (09:32)
[2022-06-02] MEDS: valACYclovir 500 MG TAB PO SCH ×3 (09:32→20:24)
[2022-06-02] MEDS ORDERED: Furosemide 40 MG TAB PO SCH (10:00)
[2022-06-02] MEDS: HumaLOG 300 UNITS/3 ML VIAL SC PRN ×2 (12:43→16:42)
[2022-06-02] MEDS: Clotrimazole 2% 3 Day Vag Cr 22.2 GM TUBE VAG SCH (20:20)
[2022-06-02] MEDS: Transdermal Patch Removal TOP SCH (20:24)
[2022-06-03] MEDS ORDERED: Furosemide 20 MG/2 ML VIAL SLOW IVP SCH (00:45)
[2022-06-03] MEDS: Polyethylene Glycol 3350 17 GM Packet PO SCH (07:57)
[2022-06-03] MEDS: Lidocaine 5% Patch TD SCH (07:57)
[2022-06-03] MEDS: Enoxaparin Sodium 40 MG/0.4 ML SYRINGE SC SCH (07:57)
[2022-06-03] MEDS: predniSONE 20 MG TAB PO SCH (07:58)
[2022-06-03] MEDS: Minocycline HCl 50 MG CAP PO SCH (07:58)
[2022-06-03] MEDS: Rosuvastatin 20 MG TAB PO SCH (07:59)
[2022-06-03] MEDS: Clopidogrel Bisulfate 75 MG TAB PO SCH (07:59)
[2022-06-03] MEDS: valACYclovir 500 MG TAB PO SCH (07:59)
[2022-06-03] MEDS: Ezetimibe 10 MG TAB PO SCH (07:59)
[2022-06-03] MEDS: metFORMIN 500 MG TAB PO SCH (07:59)
[2022-06-03] MEDS ORDERED: Lidocaine 1% w/Epinephrine 1:100K 20 ML VIAL ONE (08:30)
[2022-06-03] MEDS ORDERED: Furosemide 40 MG TAB PO SCH (09:00)
[2022-06-03 09:43] VITALS: BP 126/85; TEMP 98.1
[2022-06-08] MEDS ORDERED: BUPRENORPHINE 15 MCG/HR TOP SCH (09:00)
== END 2022-06-03 10:06 | disposition home health service (06) | DRG 603 ==
LOC: ERS 13:41 → T4-A 16:56
PROVIDERS: ADMIT Internal Medicine; ATTEND Family Medicine
DX: L03.115 Cellulitis of right lower limb (principal); E27.40 Unspecified adrenocortical insufficiency; E87.1 Hypo-osmolality and hyponatremia; I42.2 Other hypertrophic cardiomyopathy; N17.9 Acute kidney failure, unspecified; E11.621 Type 2 diabetes mellitus with foot ulcer; E11.65 Type 2 diabetes mellitus with hyperglycemia; I48.91 Unspecified atrial fibrillation; K21.9 Gastro-esophageal reflux disease without esophagitis; E78.00 Pure hypercholesterolemia, unspecified; I10 Essential (primary) hypertension; E86.0 Dehydration; E87.5 Hyperkalemia; L97.519 Non-pressure chronic ulcer of other part of right foot with unspecified severity; B02.9 Zoster without complications; Z79.52 Long term (current) use of systemic steroids; Z90.49 Acquired absence of other specified parts of digestive tract; Z95.810 Presence of automatic (implantable) cardiac defibrillator; Z88.6 Allergy status to analgesic agent; Z79.899 Other long term (current) drug therapy; Z79.51 Long term (current) use of inhaled steroids; Z79.84 Long term (current) use of oral hypoglycemic drugs
CPT/HCPCS: 36415; 36416; 80048; 80053; 81003; 83605; 85025; 87040; 87070; 87205; 93005; 93010; 96361; 96365; 96367; 97139; J0692; J1650; J1815; J1940; J3370; J3490; J7050; J7512; U0003; U0005

== ENCOUNTER 2022-12-13 08:01 | Outpatient (CLI) | payer MEDICARE | END 2022-12-13 08:02 | disposition home or self-care (01) | LOC: BICMAMMO 08:01 | PROVIDERS: ATTEND Internal Medicine Rheumatology | DX: M81.0 Age-related osteoporosis without current pathological fracture (principal) | CPT/HCPCS: 77080 ==

== ENCOUNTER 2023-01-26 08:47 | Outpatient (CLI) | payer MEDICARE | END 2023-01-26 08:48 | disposition home or self-care (01) | LOC: RAD 08:47 | PROVIDERS: ATTEND Internal Medicine Critical Care Medicine | DX: R06.00 Dyspnea, unspecified (principal); M85.80 Other specified disorders of bone density and structure, unspecified site; R29.890 Loss of height; S22.060A Wedge compression fracture of T7-T8 vertebra, initial encounter for closed fracture | CPT/HCPCS: 71046 ==

== ENCOUNTER 2023-02-22 05:53 | Day surgery (SDC) | payer MEDICARE ==
[2023-02-21 11:07] VITALS: BMI 24.9
[2023-02-22] MEDS ORDERED: fentaNYL 50 mcg/mL 1 mL Vial ONE (07:09)
[2023-02-22] MEDS ORDERED: PROPOFOL 200 MG/20 ML VIAL ONE (07:44)
[2023-02-22] MEDS ORDERED: Lidocaine 1% PF 5 ML VIAL ONE (07:44)
== END 2023-02-22 09:16 | disposition home or self-care (01) ==
LOC: SDC 05:53
PROVIDERS: ATTEND Internal Medicine Gastroenterology
PROC: 0DBK8ZZ Excision of Ascending Colon, Via Natural or Artificial Opening Endoscopic (ICD-10-PCS; principal; 2023-02-22)
PROC: 0DBL8ZZ Excision of Transverse Colon, Via Natural or Artificial Opening Endoscopic (ICD-10-PCS; 2023-02-22)
PROC: 0DBH8ZZ Excision of Cecum, Via Natural or Artificial Opening Endoscopic (ICD-10-PCS; 2023-02-22)
DX: D12.0 Benign neoplasm of cecum (principal); D12.2 Benign neoplasm of ascending colon; D12.3 Benign neoplasm of transverse colon; K57.30 Diverticulosis of large intestine without perforation or abscess without bleeding; I11.0 Hypertensive heart disease with heart failure; I50.9 Heart failure, unspecified; I25.10 Atherosclerotic heart disease of native coronary artery without angina pectoris; E11.9 Type 2 diabetes mellitus without complications; K21.9 Gastro-esophageal reflux disease without esophagitis; I48.91 Unspecified atrial fibrillation; Z86.010 Personal history of colon polyps; Z79.02 Long term (current) use of antithrombotics/antiplatelets; Z79.899 Other long term (current) drug therapy; Z95.1 Presence of aortocoronary bypass graft; Z95.810 Presence of automatic (implantable) cardiac defibrillator; Z88.8 Allergy status to other drugs, medicaments and biological substances
CPT/HCPCS: 45385; 82962; J3010; 36416; 88305; J2704

== ENCOUNTER 2023-08-15 12:19 | Inpatient (IN) | payer MEDICARE ==
[2023-08-15] MEDS ORDERED: Sodium Chloride 0.9% 100 ML ONE (15:23)
[2023-08-15] MEDS ORDERED: Cefepime 1 GM VIAL ONE (15:23)
[2023-08-15 15:45] LABS: #Basophils 0.1 thou/uL (0.0-0.2); #Monocytes 0.9 thou/uL (0.11-0.59); #Neutrophils 18.9 thou/uL (1.40-6.50); %Basophils 0.3 % (0.0-1.0); %Lymphocytes 2.5 % (21.0-51.0); %Monocytes 4.5 % (0.0-10.0); %Neutrophils 91.6 % (42.0-75.0); Hematocrit 40.3 % (36.0-47.0); Hemoglobin 13.9 g/dL (12.0-16.0); Mean Corpuscular HGB CONC 34.5 g/dL (32.0-36.0); Mean Corpuscular Hemoglobin 29.9 pg (27.0-31.0); Mean Corpuscular Volume 86.7 fl (78.0-98.0); Mean Platelet Volume 9.2 fL (7.4-10.4); Platelet Count 407 10x3/uL (130-400); RBC Distribution Width 13.6 % (11.5-14.5); Red Blood Cell (RBC) Count 4.65 mill/uL (4.20-5.40); White Blood Cell (WBC) Count 20.6 10x3/uL (4.8-10.8)
[2023-08-15 16:06] LABS: ALT (SGPT) 32 U/L (8-55); AST (SGOT) 23 U/L (5-34); Alkaline Phosphatase 77 U/L (40-110); Anion Gap 13 mmol/L (10-20); BUN (Urea Nitrogen) 14 mg/dL (9.8-20.1); Calc. Creatinine Clearance 0 mL/min (70-130); Calcium 9.9 mg/dL (7.8-10.44); Carbon Dioxide 28 mmol/L (23-31); Chloride 92 mmol/L (98-107); Estimated GFR 56; Globulin 2.5 g/dL (2.4-3.5); Glucose 206 mg/dL (83-110); Potassium 4.5 mmol/L (3.5-5.1); Protein, Total 6.5 g/dL (5.8-8.1); Sodium 128 mmol/L (136-145)
[2023-08-15] MEDS ORDERED: Calcium Carbonate 500 MG ChewTAB PO PRN (18:45)
[2023-08-15] MEDS ORDERED: Acetaminophen 325 MG TAB PO PRN (18:45)
[2023-08-15] MEDS ORDERED: Dextrose 50% Abboject 50 ML SYRINGE SLOW IVP PRN (18:45)
[2023-08-15] MEDS ORDERED: Senokot S 8.6-50 MG TAB PO PRN (18:45)
[2023-08-15] MEDS ORDERED: Acetaminophen 650 MG Suppository PR PRN (18:45)
[2023-08-15] MEDS ORDERED: Ondansetron PF 4 MG/2 ML Vial IVP PRN (18:45)
[2023-08-15] MEDS ORDERED: Dextrose 5% in Water 1,000 ML IV PRN (18:45)
[2023-08-15] MEDS ORDERED: Bisacodyl 5 MG TAB PO PRN (18:45)
[2023-08-15] MEDS ORDERED: HumaLOG 300 UNITS/3 ML VIAL SC PRN ×2 (18:45)
[2023-08-15] MEDS ORDERED: Glucagon 1 MG/ML KIT IM PRN (18:45)
[2023-08-15] MEDS ORDERED: Ondansetron ODT 4 MG TAB PO PRN (18:45)
[2023-08-15] MEDS ORDERED: Ipratropium/Albuterol 3 ML NEB NEB PRN (18:49)
[2023-08-15] MEDS ORDERED: Albuterol 200 PUFF (6.7GM INHALER) INH PRN (18:49)
[2023-08-15 20:02] VITALS: BMI 22.1
[2023-08-15] MEDS: Vancomycin HCl 750 MG in Sodium Chloride 0.9% 250 ML 250 ML IVPB SCH (20:27)
[2023-08-15] MEDS: HYDROcodone/Acetaminophen 5/325 mg Tablet PO PRN (21:57)
[2023-08-15] MEDS: predniSONE 20 MG TAB PO SCH (21:58)
[2023-08-16] MEDS: Cefepime 1 GM in Sodium Chloride 0.9% 100 ML IVPB SCH (03:41)
[2023-08-16 05:51] LABS: #Basophils 0.1 thou/uL (0.0-0.2); #Eosinphils 0.1 thou/uL (0.0-0.7); #Monocytes 1.6 thou/uL (0.11-0.59); #Neutrophils 12.5 thou/uL (1.40-6.50); %Basophils 0.3 % (0.0-1.0); %Eosinophils 0.3 % (0.0-10.0); %Lymphocytes 8.8 % (21.0-51.0); %Monocytes 10.3 % (0.0-10.0); %Neutrophils 79.2 % (42.0-75.0); Hematocrit 34.2 % (36.0-47.0); Hemoglobin 11.5 g/dL (12.0-16.0); Mean Corpuscular HGB CONC 33.6 g/dL (32.0-36.0); Mean Corpuscular Hemoglobin 29.8 pg (27.0-31.0); Mean Corpuscular Volume 88.6 fl (78.0-98.0); Mean Platelet Volume 9.1 fL (7.4-10.4); Platelet Count 368 10x3/uL (130-400); RBC Distribution Width 13.4 % (11.5-14.5); Red Blood Cell (RBC) Count 3.86 mill/uL (4.20-5.40); White Blood Cell (WBC) Count 15.8 10x3/uL (4.8-10.8)
[2023-08-16 06:09] LABS: Anion Gap 11 mmol/L (10-20); BUN (Urea Nitrogen) 13 mg/dL (9.8-20.1); Calc. Creatinine Clearance 48 mL/min (70-130); Calcium 8.8 mg/dL (7.8-10.44); Carbon Dioxide 30 mmol/L (23-31); Chloride 97 mmol/L (98-107); Estimated GFR 80; Glucose 77 mg/dL (83-110); Potassium 3.7 mmol/L (3.5-5.1); Sodium 134 mmol/L (136-145)
[2023-08-16] MEDS: Enoxaparin 30 MG (0.3 mL) SYRINGE SC SCH (08:49)
[2023-08-16] MEDS: Ezetimibe 10 MG TAB PO SCH (08:50)
[2023-08-16] MEDS: Potassium Chloride 10 MEQ TAB PO SCH (08:50)
[2023-08-16] MEDS: Clopidogrel Bisulfate 75 MG TAB PO SCH (08:50)
[2023-08-16] MEDS: Rosuvastatin 20 MG TAB PO SCH (08:51)
[2023-08-16] MEDS ORDERED: BUPRENORPHINE 15 MCG TOP SCH (09:00)
[2023-08-16] MEDS: Torsemide 20 MG TAB PO SCH ×2 (14:35→20:28)
[2023-08-16] MEDS ORDERED: Vancomycin HCl 750 MG in Sodium Chloride 0.9% 250 ML 250 ML IVPB SCH (17:00)
[2023-08-16] MEDS: Vancomycin 1 GM in Premix 1 BAG IVPB SCH (17:10)
[2023-08-17] MEDS: Spironolactone 25 MG TAB PO SCH (08:08)
[2023-08-17 12:28] LABS: #Basophils 0.1 thou/uL (0.0-0.2); #Monocytes 0.8 thou/uL (0.11-0.59); #Neutrophils 13.5 thou/uL (1.40-6.50); %Basophils 0.5 % (0.0-1.0); %Eosinophils 0.1 % (0.0-10.0); %Lymphocytes 3.6 % (21.0-51.0); %Neutrophils 89.4 % (42.0-75.0); Hematocrit 39.2 % (36.0-47.0); Hemoglobin 13.7 g/dL (12.0-16.0); Mean Corpuscular HGB CONC 34.9 g/dL (32.0-36.0); Mean Corpuscular Hemoglobin 29.3 pg (27.0-31.0); Mean Corpuscular Volume 83.9 fl (78.0-98.0); Platelet Count 448 10x3/uL (130-400); RBC Distribution Width 13.2 % (11.5-14.5); Red Blood Cell (RBC) Count 4.67 mill/uL (4.20-5.40); White Blood Cell (WBC) Count 15.1 10x3/uL (4.8-10.8)
[2023-08-17 17:16] LABS: Vancomycin, Trough 9.6 ug/mL
[2023-08-18] MEDS: Vancomycin HCl 500 MG in Sodium Chloride 0.9% 100 ML IVPB SCH (05:42)
[2023-08-18] MEDS ORDERED: Potassium Chloride 10 MEQ TAB PO SCH (08:00)
[2023-08-18] MEDS: Enoxaparin 40 MG (0.4 mL) SYRINGE SC SCH (09:41)
[2023-08-18 11:43] VITALS: BP 113/71; TEMP 97.7
== END 2023-08-18 16:47 | disposition home or self-care (01) | DRG 603 ==
LOC: ERS 12:19 → ERHOLD 16:56 → T4-B 19:17
PROVIDERS: ADMIT Internal Medicine; ATTEND Internal Medicine
DX: L03.116 Cellulitis of left lower limb (principal); I42.9 Cardiomyopathy, unspecified; E27.40 Unspecified adrenocortical insufficiency; E87.1 Hypo-osmolality and hyponatremia; I48.20 Chronic atrial fibrillation, unspecified; K21.9 Gastro-esophageal reflux disease without esophagitis; E78.00 Pure hypercholesterolemia, unspecified; I25.10 Atherosclerotic heart disease of native coronary artery without angina pectoris; I50.9 Heart failure, unspecified; I11.0 Hypertensive heart disease with heart failure; E78.5 Hyperlipidemia, unspecified; J44.9 Chronic obstructive pulmonary disease, unspecified; E11.69 Type 2 diabetes mellitus with other specified complication; Z79.51 Long term (current) use of inhaled steroids; Z79.82 Long term (current) use of aspirin; Z95.810 Presence of automatic (implantable) cardiac defibrillator; Z98.890 Other specified postprocedural states; Z95.1 Presence of aortocoronary bypass graft; Z90.49 Acquired absence of other specified parts of digestive tract; Z98.51 Tubal ligation status; Z88.8 Allergy status to other drugs, medicaments and biological substances; Z79.899 Other long term (current) drug therapy
CPT/HCPCS: 36415; 36416; 80048; 80053; 80202; 82565; 83605; 85025; 87040; 87149; 96374; 96375; J0692; J1650; J3370; J3370-JW; J3490; J7050; J7512

== ENCOUNTER 2023-11-30 09:31 | Outpatient (CLI) | payer MEDICARE | END 2023-11-30 09:32 | disposition home or self-care (01) | LOC: RAD 09:31 | PROVIDERS: ATTEND Internal Medicine Critical Care Medicine | DX: R06.00 Dyspnea, unspecified (principal) | CPT/HCPCS: 71046 ==

== ENCOUNTER 2024-01-10 13:40 | Outpatient (CLI) | payer MEDICARE | END 2024-01-10 13:41 | disposition home or self-care (01) | LOC: BICMAMMO 13:40 | PROVIDERS: ATTEND Internal Medicine Rheumatology | DX: M81.0 Age-related osteoporosis without current pathological fracture (principal) | CPT/HCPCS: 77080 ==